=== PATIENT | male | born 1955 | race Caucasian/White ===

== ENCOUNTER 2016-07-02 01:06 | Inpatient (IN) | payer MEDICAID, OTHER ==
[2016-07-02] MEDS ORDERED: PROPOFOL/EMULSION 500 MG/50 ML BOTTLE IV ONE (01:11)
[2016-07-02] MEDS ORDERED: NS 1,000 ML IV ONE (01:11)
[2016-07-02] MEDS ORDERED: PROPOFOL 200 MG/20 ML VIAL IVP ONE (01:12)
[2016-07-02] MEDS ORDERED: PROPOFOL/EMULSION 50 ML IV ONE (01:13)
[2016-07-02] MEDS ORDERED: VANCOMYCIN HCL/NORMAL SALINE 250 ML IV ONE (01:20)
[2016-07-02] MEDS ORDERED: PIPERACILLIN/TAZO 4.5 GM/DEX 100 ML IV ONE (01:20)
--- NOTE | 2016-07-02 01:20 | EDPHY ---
[id number] unknown age, presents emergency room by EMS from [facility], for respiratory failure. Per EMS they were called for respiratory distress/ failure. According to [facility] staff he was having shortness of breath yesterday and had a fever he was started on some type of antibiotic for a chest wall wound. They called 911 this evening as he had severely decline was unresponsive in respiratory distress. They brought him to the emergency room urgently. Upon arrival here in the emergency room he is unresponsive he is breathing 60 times per minute he is unable to participate in exam or answer any questions. The history is extremely limited as well as review of systems. Per EMS they do tell me that he is a dialysis patient lives at [facility] however no additional history is given at this time. Past Medical History: Unknown Past Surgical History: Unkown Social History: Lives in [facility] Family History: Unknown ROS REVIEW OF SYSTEMS: A comprehensive 10 point review of systems is otherwise negative aside from elements mentioned in the history of present illness. Exam Constitutional unresponsive Eyes normal conjunctivae and sclera, EOMI, PERRLA. HENT normal inspection, atraumatic, moist mucus membranes, no epistaxis, neck supple/ no meningismus, no raccoon eyes. Respiratory respiratory distress, upper airway secretions Cardiovascular chest wall: Bloody lesion anterior chest wall, 3cm x 3cm, rate normal, regular rhythm, no murmur, no edema, distal pulses normal. Gastrointestinal large abdomen Genitourinary no CVA tenderness. Musculoskeletal left arm AV fistula Skin pink, warm, & dry, no rash, lesion to anterior chest wall Neurologic unresponsive Psychiatric normal mood/affect. Heme/Lymph/Immune no lymphadenopathy. Differential Diagnosis:includes but is not limited to in a particular order, respiratory failure, pneumonia, sepsis, septic shock, bacteremia, electrolyte abnormality, volume overload, ACS Medical Decision Making: Procedure: ETT Intubation Upon arrival here in the emergency room the patient is unresponsive with respiratory distress unable to participate in exam. Gurgling secretions he was emergently intubated by myself without RSI medications as he was unresponsive. A 7.5 endotracheal tube was passed under direct visualization of the cords with a MAC 4 blade. No complications. 0119: At this time this patient is moved to ER room 2 for resuscitation will have IVs established, he received fluid bolus as his blood pressure was low in the 90s. Patient had blood cultures, lactic acid, he will have a chest x-ray blood work. Most likely be started on broad-spectrum antibiotics. Re-evaluation: 0123:I was able to find medical records on this patient. According to medical record: He has the following medical problems mental delay secondary to hypoxia as a child, end-stage renal disease secondary to diabetic nephropathy type 2 diabetes , hypoxia wearing 2 L nasal cannula, BPH, hyperlipidemia, hypertension, CVA endocarditis asthma, depression, mitral valve and aortic valve repair acute respiratory failure in the past, CABG, coronary artery disease, 2nd degree AV block, ESBL EKG interpretation by me on record in [facility] system. Impression time of EKG 1:25 a.m., this is sinus tachycardia rate of 100, this shows a right bundle- branch block present left posterior fascicular block present. This is similar to in morphology of previous EKG dated 10/04/2015. I do not appreciate acute ischemic change at this time. ED x-ray chest one view: Shows cardiomegaly present. There is pulmonary edema bilateral lung jones, endotracheal tube is in appropriate position. No pneumothorax visualize. Image interpreted by myself. Critical Care: Total Critical Care Time Spent Managing this Patient: 60 Minutes. This time was spent Exclusively with this patient. This Care was exclusive of procedures. The Organ System/life at risk was respiratory, sepsis This Patient was in Critical Condition because respiratory failure 0225: re-evaluation at this time this patient is sedated, intubated, he is hemodynamically stable. Currently his blood pressure is 100/50, pulse ox 95% intubated, respiratory rate 16, heart rate 76. He is on his 3rd L fluid his 2nd lactic acid is pending. He has received broad-spectrum antibiotics vancomycin and cefepime. He does have a fever of 39 degrees here. A elevated white blood cell count most likely he is septic with severe sepsis. Unknown source at this time. His x-ray has been reviewed shows pulmonary edema. He does have a positive troponin however unlikely to be ischemia this is most likely sepsis. I have admitted this patient to the hospitalist service and spoke with Dr. Plata who accepts admission to the ICU at this time this patient is hemodynamically stable for the ICU. We will continue broad-spectrum antibiotics as unclear source of infection. Blood cultures have been pulled I have ordered a sputum culture. 0309: this patient remains hypotensive. Patient has been given 3 L he is on his 4th L. Procedure: Central Line Placement. I placed a central line left IJ under ultrasound guidance. There were no complications he tolerated this well. Chest x-ray to confirm. ED x-ray chest one view: This is for line placement: left IJ central line appears in appropriate position. No pneumothorax identified. Image interpreted by myself. Source: EMS Constitutional: Initial Vital Signs Temperature (C) 37.7 C 07/02/16 01:06 Heart Rate 116 H 07/02/16 01:06 Respiratory Rate 32 H 07/02/16 01:06 Blood Pressure 97/51 L 07/02/16 01:06 O2 Sat (%) 78 L 07/02/16 01:06 O2 Delivery Mode Ventilator O2 (L/minute) 15 Allergies/Adverse Reactions: Penicillins Allergy (Verified 07/02/16 02:12) Home Medications: Medication Instructions Recorded Aspirin EC [Aspirin EC 81 mg (*)] 81 mg PO DAILY 07/02/16 Escitalopram Oxalate [Lexapro] 10 mg PO DAILY 07/02/16 Famotidine [Pepcid 20 MG (*)] 20 mg PO HS 07/02/16 Fluticasone Nasal [Flonase Nasal 1 sprays NASAL DAILY 07/02/16 [place] (RX)] Insulin Aspart 0 - 8 units SQ ACHS 07/02/16 Insulin Detemir [Levemir Flextouch] 8 unit SQ DAILY AT 8PM 07/02/16 Multivitamin with Minerals 1 each PO DAILY 07/02/16 [Multiple Vitamin] Sulfamethox/Tmp 800/160 mg 1 tab PO DAILY 07/02/16 [Bactrim Ds] Medical Decision Making - Data Points Laboratory Results: Laboratory Results 07/02/16 01:15 07/02/16 01:15 Microbiology Results: MICROBIOLOGY 07/02/16 02:05 Urine,Catheterized Urine Culture - Preliminary Yeast Species 07/02/16 01:38 Blood Blood Culture - Preliminary 07/02/16 01:30 Blood Blood Culture - Preliminary Medications Given: Discontinued Medications Enoxaparin Sodium (Lovenox) 30 mg SC DAILY BARRIE Stop: 12/29/16 08:59 Last Admin: 07/02/16 09:41 Dose: Not Given Fentanyl (Sublimaze) 50 mcg IVP EDNOW ONE Stop: 07/02/16 01:25 Last Admin: 07/02/16 01:26 Dose: 50 mcg Fentanyl (Sublimaze) 50 mcg IVP EDNOW ONE Stop: 07/02/16 02:26 Last Admin: 07/02/16 02:27 Dose: 50 mcg Fentanyl (Sublimaze) 50 mcg IVP ONCE ONE Stop: 07/02/16 02:50 Last Admin: 07/02/16 03:01 Dose: 50 mcg Fentanyl (Sublimaze) 50 mcg IVP ONCE ONE Stop: 07/02/16 02:52 Last Admin: 07/02/16 03:00 Dose: 50 mcg Fentanyl (Sublimaze) 100 mcg IVP ONCE ONE Stop: 07/02/16 03:21 Last Admin: 07/02/16 03:21 Dose: 100 mcg Sodium Chloride (Ns) 1,000 mls @ 0 mls/hr IV ONCE ONE PRN Reason: As Directed Stop: 07/02/16 01:12 Last Admin: 07/02/16 01:06 Dose: 1,000 mls Propofol (Diprivan 10 Mg/Ml (Premix)) 50 mls @ 0 mls/hr IV EDNOW ONE; As Directed PRN Reason: Protocol Stop: 07/02/16 01:14 Last Admin: 07/02/16 01:45 Dose: Not Given Vancomycin/Sodium Chloride (Vancomycin 1 Gm (Premix)) 250 mls @ 250 mls/hr IV EDNOW ONE PRN Reason: Protocol Stop: 07/02/16 02:19 Last Admin: 07/02/16 01:52 Dose: 250 mls Piperacillin/Tazobactam/Dextrose (Zosyn (Premix)) 100 mls @ 200 mls/hr IV EDNOW ONE PRN Reason: Protocol Stop: 07/02/16 01:49 Last Admin: 07/02/16 02:14 Dose: Not Given Cefepime HCl 2 gm/ Dextrose 100 mls @ 200 mls/hr IV EDNOW ONE PRN Reason: Protocol Stop: 07/02/16 02:40 Last Admin: 07/02/16 02:39 Dose: 100 mls Sodium Chloride (Ns) 2,000 mls @ 0 mls/hr IV ONCE ONE PRN Reason: Wide Open Stop: 07/02/16 02:28 Last Admin: 07/02/16 02:28 Dose: 2,000 mls Norepinephrine 4 mg/ Sodium (Chloride) 504 mls @ 0 mls/hr IV EDNOW ONE; Titrate PRN Reason: Protocol Stop: 07/02/16 03:21 Last Admin: 07/02/16 03:25 Dose: 504 mls Norepinephrine 4 mg/ Dextrose 504 mls @ 0 mls/hr IV CONT BARRIE; Titrate PRN Reason: Protocol Stop: 12/29/16 04:29 Last Admin: 07/02/16 09:15 Dose: 504 mls Sodium Chloride (Ns) 1,000 mls @ 100 mls/hr IV CONT BARRIE Stop: 12/29/16 04:14 Last Admin: 07/02/16 04:37 Dose: 1,000 mls Midazolam HCl (Versed) 1 mg IVP ONCE ONE Stop: 07/02/16 01:45 Last Admin: 07/02/16 01:26 Dose: 1 mg Midazolam HCl (Versed) 1 mg IVP ONCE ONE Stop: 07/02/16 02:26 Last Admin: 07/02/16 02:27 Dose: 1 mg Midazolam HCl (Versed) 1 mg IVP EDNOW ONE Stop: 07/02/16 03:01 Last Admin: 07/02/16 03:00 Dose: 1 mg Propofol (Diprivan) 60 mg IVP EDNOW ONE Stop: 07/02/16 01:13 Last Admin: 07/02/16 01:20 Dose: 10 mg Departure - Departure Disposition: [facility] Inpatient Acute Clinical Impression: Respiratory failure, Sepsis Condition: Critical
[2016-07-02 01:24] LABS: % IMMATURE GRANULYOCYTES 0.7 % (0.0-1.1); ABSOLUTE IMMATURE GRANULOCYTES 0.15 10^3/uL (0.00-0.10); ADD DIFF? NO; ADD MORPH? NO; ADD SCAN? NO; ATYPICAL LYMPHOCYTE FLAG 0 (0-99); FRAGMENT RBC FLAG 20 (0-99); HEMATOCRIT 33.8 % (40.0-51.0); HEMOGLOBIN 10.5 g/dL (13.7-17.5); LEFT SHIFT FLG 0 (0-99); LIPEMIA HEMOLYSIS FLAG 80 (0-99); MEAN CELL HEMOGLOBIN 27.2 pg (27.9-34.1); MEAN CELL HEMOGLOBIN CONCENTR. 31.1 g/dL (32.4-36.7); MEAN CELL VOLUME 87.6 fL (81.5-99.8); MEAN PLATELET VOLUME 9.3 fL (8.7-11.7); PLATELET CLUMPS FLAG 20 (0-99); PLATELET COUNT 379 10^3/uL (150-400); RED BLOOD CELL COUNT 3.86 10^6/uL (4.40-6.38)
[2016-07-02] MEDS ORDERED: fentaNYL 100 MCG/2 ML INJ IVP ONE ×5 (01:24→03:20)
--- NOTE | 2016-07-02 01:28 | CPEKG ---
Heart Rate: 100 RR Interval: 600 P-R Interval: 192 QRSD Interval: 154 QT Interval: 360 QTC Interval: 465 P [place]: -67 QRS [place]: 139 T Wave [place]: -23 EKG Severity - ABNORMAL ECG - EKG Impression: Sinus tachycardia EKG Impression: RBBB AND LPFB Electronically Signed By: Ramesh Calderón 04-Jul-2016 10:54:29
[2016-07-02] MEDS ORDERED: MIDAZOLAM HCL 50 MG in D5W 50 ML IV SCH (01:30)
[2016-07-02 01:35] LABS: ALANINE AMINOTRANSFERASE 38 IU/L (21-72); ALKALINE PHOSPHATASE 168 IU/L (38-126); ANION GAP 16 mEq/L (8-16); ASPARTATE AMINOTRANSFERASE 60 IU/L (17-59); BILIRUBIN,TOTAL 0.8 mg/dL (0.1-1.4); BILIRUBIN-CONJUGATED 0.8 mg/dL (0.0-0.5); CALCIUM 9.4 mg/dL (8.5-10.4); CARBON DIOXIDE 29 mEq/l (22-31); CHLORIDE 96 mEq/L (97-110); CREATININE 3.4 mg/dL (0.7-1.3); GLOMERULAR FILTRATION RATE 19; GLUCOSE 213 mg/dL (70-100); POTASSIUM 4.5 mEq/L (3.5-5.2); SODIUM 141 mEq/L (134-144); TOTAL PROTEIN 6.6 g/dL (6.3-8.2)
[2016-07-02 01:36] LABS: INR 1.54 (0.83-1.16); PROTIME(PATIENT) 18.5 SEC (12.0-15.0)
[2016-07-02 01:37] LABS: APTT 32.3 SEC (23.0-38.0)
[2016-07-02] MEDS ORDERED: MIDAZOLAM 2 MG/2 ML VIAL IVP ONE ×3 (01:44→03:00)
[2016-07-02 01:57] LABS: BASE EXCESS 0.7 mEq/L (-2.5-2.5); BICARBONATE 25 mEq/L (22-26); MEASURED OXYGEN SATURATION 100 % (92-95); PCO2 41 mmHg (34-38); PO2 206 mmHg (65-75); TCO2 26 mEq/L (23-27)
[2016-07-02 01:58] LABS: O2 CONCENTRATIION 80 % (0-100); P/F RATIO 258 RATIO; PATIENT RATE 22; PIP 27.4; PRESSURE SUPPORT 7; SIMV YES
[2016-07-02 01:59] LABS: END TIDAL CO2 34
[2016-07-02 02:05] LABS: CK-MB INTERPRETATION NEGATIVE (NEGATIVE)
[2016-07-02] MEDS ORDERED: CEFEPIME HCL 2 GM in D5W 100 ML IV ONE (02:11)
[2016-07-02] MEDS ORDERED: NS 2,000 ML IV ONE (02:27)
[2016-07-02] MEDS ORDERED: NOREPINEPHRINE BITARTRATE 4 MG in D5W 500 ML IV SCH ×2 (03:00→04:30)
[2016-07-02] MEDS ORDERED: NOREPINEPHRINE BITARTRATE 4 MG in NS 500 ML IV ONE (03:20)
[2016-07-02] MEDS ORDERED: fentaNYL 100 MCG/2 ML INJ IVP PRN (04:03)
[2016-07-02] MEDS ORDERED: NS 1,000 ML IV SCH (04:15)
[2016-07-02] MEDS: ACETAMINOPHEN 650 MG SUPP PR PRN ×2 (04:20→09:11)
[2016-07-02] MEDS: fentaNYL/NACL 100 ML IV SCH (04:29)
[2016-07-02] MEDS ORDERED: VASOPRESSIN/DEXTROSE 250 ML IV SCH (04:30)
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
[2016-07-02] MEDS ORDERED: CEFEPIME HCL 2 GM in D5W 100 ML IV SCH (06:00)
[2016-07-02 06:12] LABS: BICARBONATE 24 mEq/L (22-26); MEASURED OXYGEN SATURATION 87 % (92-95); PCO2 42 mmHg (34-38); PO2 66 mmHg (65-75); TCO2 25 mEq/L (23-27)
[2016-07-02 06:14] LABS: SIMV YES
[2016-07-02 06:15] LABS: END TIDAL CO2 40; O2 CONCENTRATIION 40 % (0-100); P/F RATIO 165 RATIO; PATIENT RATE 20; PRESSURE SUPPORT 7
[2016-07-02 06:29] LABS: % IMMATURE GRANULYOCYTES 0.5 % (0.0-1.1); ADD DIFF? NO; ADD MORPH? NO; ADD SCAN? NO; ATYPICAL LYMPHOCYTE FLAG 0 (0-99); FRAGMENT RBC FLAG 20 (0-99); HEMATOCRIT 28.4 % (40.0-51.0); LEFT SHIFT FLG 0 (0-99); LIPEMIA HEMOLYSIS FLAG 80 (0-99); MEAN CELL HEMOGLOBIN 26.6 pg (27.9-34.1); MEAN CELL HEMOGLOBIN CONCENTR. 31.7 g/dL (32.4-36.7); MEAN PLATELET VOLUME 9.3 fL (8.7-11.7); PLATELET CLUMPS FLAG 0 (0-99); PLATELET COUNT 287 10^3/uL (150-400); RED BLOOD CELL COUNT 3.38 10^6/uL (4.40-6.38)
[2016-07-02 06:41] LABS: ALANINE AMINOTRANSFERASE 34 IU/L (21-72); ALBUMIN 2.7 g/dL (3.5-5.0); ALKALINE PHOSPHATASE 125 IU/L (38-126); ANION GAP 14 mEq/L (8-16); ASPARTATE AMINOTRANSFERASE 50 IU/L (17-59); BILIRUBIN,TOTAL 0.8 mg/dL (0.1-1.4); CALCIUM 8.1 mg/dL (8.5-10.4); CARBON DIOXIDE 24 mEq/l (22-31); CHLORIDE 104 mEq/L (97-110); CREATININE 3.2 mg/dL (0.7-1.3); GLOMERULAR FILTRATION RATE 20; GLUCOSE 144 mg/dL (70-100); MAGNESIUM 1.5 mg/dL (1.6-2.3); POTASSIUM 3.7 mEq/L (3.5-5.2); SODIUM 142 mEq/L (134-144); TOTAL PROTEIN 5.2 g/dL (6.3-8.2)
[2016-07-02] MEDS ORDERED: ALBUTEROL 60 PUFFS/8 GM MDI IH PRN (06:53)
[2016-07-02] MEDS ORDERED: MIDAZOLAM 2 MG/2 ML VIAL ONE (07:40)
[2016-07-02] MEDS ORDERED: fentaNYL 100 MCG/2 ML INJ ONE (07:40)
[2016-07-02] MEDS ORDERED: D50W 25 GM/50 ML SYR IVP PRN (07:41)
--- NOTE | 2016-07-02 07:57 | DX ---
1. Portable Chest 1:20 a.m. History: Intubation, unresponsive patient Comparison: None Findings: ET tube present with tip in the trachea just above the chin. The heart is large with an a ortic valve replacement along with CABG clips and median sternotomy wire overlying it. The pulmonary vascularity is plethoric. Early diffuse alveolar densities suggest pulmonary edema. There is subtle b lunting of the left costophrenic gutter. The right costophrenic gutter remain sharp. EKG leads overli e the chest. Impression: Acute CHF with pulmonary edema. Good position of the ET tube. 2. Portable chest, 316 a.m. History: Line placement Comparison: 120 a.m. Findings: ET tube present with tip above the chin. Left jugular venous catheter present with tip ov erlying the superior vena cava. NG tube present with tip in the stomach. Inspiratory phase is slightl y less. There is new left lower lobe consolidation. Bilateral alveolar type density is increasing con sistent with pulmonary edema. Impression: 1. CHF. 2. Left lower lobe consolidation may represent underlying pneumonia. 3. Good tube positions.
--- NOTE | 2016-07-02 08:31 | HOSPPROG ---
Hospitalist Progress Note Assessment/Plan: #Septic shock: multifactorial -possible cardiac surgical site infection. Seen by Dr Romo 06/29 and started on Bactrim, plan was for elective drainage of wound early next week. Dr. Romo consulted. 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 Contact Dr. Khan -now Influenza A positive, cont Vanc, added Invanz with h/o ESBL -Levophed #Acute on chronic hypoxic resp failure: due to flu, volume overload #h/o ESBL Klebsiella PNA (September 2015) -add Invanz -ID to evaluate #ESRD: appreciate renal consult. Plan for CRRT. 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 Concern for infection vs abscess at surgical site. Cont Vanc. Blood cultures pending. No vegetations on TTE #h/o CVA: residual left sided deficits. Doing rehab per sister #Acute encephalopathy: due to critical illness, sedation. CTH with no acute ischemia. #Acutely decompensated systolic HF (EF now 45-50%). Volume overloaded. Plan for CRRT today #NSTEMI: trop 0.5-->1.6--> 2 -likely to acute illness. Reviewed TTE with cardiology and no focal wall abnormality to suggest ACS. #Atrial fibrillation: due to acute illness. Consider heparin tomorrow if does not convert #Lactic acidosis: resolved with IVFs #Goals: sister, May, is MDPOA. MOST form May 2016 is full code. She wants to continue all treatment at this time to give him a chance Subjective: per sister. Was doing fine in PT yesterday. Has been more "foggy this week" and had dry cough starting yesterday Objective: Vital Signs Temp Pulse Resp BP Pulse Ox 40.3 C H 84 20 119/43 L 94 07/02/16 06:00 07/02/16 06:00 07/02/16 06:00 07/02/16 06:00 07/02/16 06:00 Laboratory Results 07/02/16 06:10 07/02/16 06:10 07/01/16 07/02/16 07/03/16 05:59 05:59 05:59 Intake Total 6500 Output Total 0 Balance 6500 PT 18.5 SEC (12.0-15.0) H 02/04/17 01:15 INR 1.54 (0.83-1.16) H 07/02/16 01:15 ICD10 Worksheet Patient Problems: Problems Problem Status Diagnosed Respiratory failure Acute Sepsis Acute
[2016-07-02] MEDS: IPRATROPIUM/ALBUTEROL 4GM MDI IH SCH ×2 (08:47→11:55)
[2016-07-02 08:51] LABS: COLOR YELLOW; LEUKOCYTE ESTERASE,URINE 2+ (NEGATIVE); NITRITE,URINE NEGATIVE (NEGATIVE)
[2016-07-02] MEDS ORDERED: FAMOTIDINE 20 MG/NACL 50 ML IV SCH (09:00)
[2016-07-02] MEDS ORDERED: ENOXAPARIN 40 MG/0.4 ML SYR SC SCH (09:00)
[2016-07-02] MEDS ORDERED: ENOXAPARIN 30 MG/0.3 ML SYR SC SCH (09:00)
[2016-07-02] MEDS: PANTOPRAZOLE SODIUM 40 MG in NS 100 ML IV SCH (09:10)
[2016-07-02] MEDS: ERTAPENEM 0.5 GM in NS 50 ML IV SCH (09:10)
[2016-07-02] MEDS: methylPREDNISolone SOD SUCC 125 MG/2 ML VIAL IVP SCH ×3 (09:11→18:11)
[2016-07-02 09:12] LABS: RBC,URINE 50-182 /hpf (0-3); WBC,URINE 50-182 /hpf (0-3)
[2016-07-02] MEDS: INSULIN LISPRO 100 UNIT/ML SC SCH ×3 (09:41→18:23)
[2016-07-02] MEDS: HEPARIN 5,000 UNIT/0.5 ML SYR SC SCH ×2 (10:15→18:11)
--- NOTE | 2016-07-02 11:51 | ECHO ---
[id number] + + [address] : : [place] [address] : : [phone] + + Adult Echocardiographic Report + -------+ :Name: TRACY SOUZA 1821Study Date: 07/02/2016 09:21 AM : : Hospital Admission Number: [id number] Locati on: 247: :: 1955 Gender: Male : :Age: 61 yrs Race: WH : :Reason For Study: Shock : :History: MVR 25 magna/AV repair : + -------+ MMode/2D Measurements & Calculations IVSd: 1.1 cm LVIDd: 4.9 cm FS: 24.7 % Ao root diam: 3.2 cm LVPWd: 0.88 cm LVIDs: 3.7 cm EDV(Teich): 111.1 ml LA dimension: 4.4 cm ESV(Teich): 56.9 ml EF(Teich): 48.8 % Normal Measurement Values: + + :LVIDd (3.5-5.7cm) IVSd (0.6-1.1cm) LVPWd (0.6-1.1cm) Aortic Root (2.0-3.7cm)Left Atrium (1.5-4.0cm): :LV Vol(d) (76-115ml) LV Vol(s) (29-48ml) Ejec Fraction (50-65%)PV Michael (0.6- 1.2m/s) TV Michael (0.4-1.0m/s) : :MV E Michael (0.8-1.0m/s)MV A Michael (0.3-1.0m/s)LVOT Michael (0.7-1.2m/s) Asc Ao Michael ( 0.9-1.8m/s) : + + Doppler Measurements & Calculations MV dec time: MV V2 max: MV P1/2t max michael: Ao mean P.15 sec 272.3 cm/sec 254.0 cm/sec 8.1 mmHg MV max PG: MV P1/2t: 45.7 msec Ao V2 mean: 29.7 mmHg MVA(P1/2t): 4.8 cm2 130.7 cm/sec MV V2 mean: MV dec slope: Ao V2 VTI: 30.4 cm 136.7 cm/sec 1628 cm/sec2 MV mean P.9 mmHg MV V2 VTI: 78.5 cm TR max michael: 302.4 cm/sec TR max P.6 mmHg RAP systole: 10.0 mmHg RVSP(TR): 46.6 mmHg Left Ventricle The left ventricle is normal in size. There is normal left ventricular wall thickness. The left ventricular ejection fraction is calculated at 48.8 %. Septal motion is consistent with conduction abnormality. Flattened septum is consistent with RV volume overload. Right Ventricle A moderator band is seen in the right ventricle. The right ventricle is moderate to severely dilated. Atria The left atrial size is normal. The right atrium is moderate to severely dilated. The interatrial septum is intact with no evidence for an atrial septal defect. Mitral Valve There is a bioprosthetic mitral valve. MV max PG is 29mmHG. MV mean PG is 9mmHG. Tricuspid Valve Normal tricuspid valve. There is moderate to severe tricuspid regurgitation. There is Doppler evidence for mild pulmonary hypertension. Right ventricular systolic pressure is 47mmHg. Aortic Valve The aortic valve opens well. AV max PG is 16mmHG. AV mean PG is 8mmHG. Mild- Moderate Aortic Valve Calcification. There is no aortic insufficiency. Pulmonic Valve The pulmonic valve is not well visualized. Mild pulmonic valvular regurgitation. Great Vessels The aortic root is normal size. Pericardium/Pleural There is no pericardial effusion. Conclusion A complete two-dimensional transthoracic echocardiogram was performed (2D, M-mode, Doppler and color flow Doppler). (1) Left ventricular systolic ejection fraction was mildly decreased (45- 50%) - septal wall motion consistent with conduction abnormality - flattening of the septal wall consistent wtih volume overload (2) No left ventricular hypertrophy (3) Diastolic dysfunction was not appreciated (4) Moderate to severe rigth ventricular dilation with reduction in systolic function (5) Normal left atrial size and moderate to severe right atrial dilation (6) Bioprosthetic valve without appreciable regurgitation - max PG was 29 mm Hg with mean PG to 9 mm Hg (7) Trileaflet aortic valve with moderate sclerosis, no stenosis (mean gradient was 8 mm Hg), and no appreciable insufficiency (8) Moderate to severe tricuspid regurgitation - RVSP was estimated to be 45-50 mm HG (9) Poor visualization of the pulmonic valve with mild insufficiency (10) In comparison to prior echocardiogram from 10-07-15, there has been progression of the pathology to the mitral valve (from mean of 7 mm Hg and max PG of 18 mm Hg). Ejection fraction on prior echo was also normal. Final Reading Physician: Yolanda Stark signed on 07/02/2016 11:49 AM Ordering Physician: Karena Plata Performed By: Diann Barfield, PHIL
--- NOTE | 2016-07-02 11:57 | CT ---
Unenhanced CT Scan of the Brain Clinical History: 61-year-old male resident of [facility] who presents to the emergency department this morning in septic shock, and is unresponsive. Rule out acute intracranial hemorrhage. 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 Technique: Standard unenhanced axial CT images were acquired from the skull base to the skull vertex, reformatted at 5.00 and 1.50 mm increments, and reviewed in bone, brain, and subdural windows. The DFOV is 25.5 cm. Parasagittal and paracoronal reconstructed images were reviewed on the workstation. A dose reduction protocol was used. Comparison Study: None available. Findings: There is an old lacunar infarct at the level of the right jernigan radiata, as well as a cortical and subcortical right posteroparietal infarct. There is some underlying cortical atrophy. There is no midline shift or other evidence of mass effect. There is no acute or subacute abnormal intra- or extra- axial hemorrhage. There are some mild periventricular chronic microvascular ischemic gliosis. There is atherosclerotic calcification of the cavernous carotid arteries and of the vertebral arteries. There is no skull fracture. The craniocervical junction, sella turcica, calcified pineal gland, and the orbits are unremarkable. 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 There is some chronic mucosal thickening of the ethmoid, maxillary, and sphenoid sinuses. The mastoids are patent. There is some presumed cerumen in the external auditory canals. The patient is intubated. A left nasal oropharyngeal tube is present. Impression: 1. Mild underlying cerebral cortical atrophy with some chronic periventricular white matter gliosis, an old lacunar infarct at the right jernigan radiata, and an old right posteroparietal cortical-subcortical infarct. 2. Chronic paranasal sinus mucosal thickening. 3. There is no acute intracranial abnormality identified. If there is further clinical concern regarding the patient's symptoms, MR imaging could be considered, if otherwise not contraindicated. I provided a preliminary interpretation to Dr. Jacoby Stewart at 3:42 a.m. on Monday, July 02, 2016 regarding the above findings. My final interpretation is concordant with my initial impression. [id number] POS 99 MTDD
[2016-07-02] MEDS: OSELTAMIVIR 6 MG/ML UDSYR PO SCH (12:05)
--- NOTE | 2016-07-02 12:40 | CT ---
CT Chest Without Contrast, 1128 a.m. History: Septic shock, possible sternal suture abscess, high creatinine Technique: Noncontrast, single breath-hold, [address] through the chest without contrast. D ose reduction techniques were utilized. Images are transferred to the 3-D workstation were a 3-dimens ional model is obtained and photographed by myself. Comparison: Portable chest x-ray 316 a.m. Findings: There is a midline manubrium and sternotomy which has very irregular margins. The sternum i s poorly mineralized and severely eroded in multiple locations. There is soft tissue thickening and/o r edema both deep and superficial, circumferentially around the sternotomy. Anteriorly this soft tiss ue thickening/edema extends to the skin line. There is no soft tissue gas. There is an upper sternal, double looped metallic cerclage wire, that is intact. There are more subtle nonmetallic cerclage wir es that are associated with the left side of the sternum only. The clavicular manubrial joints remain normally aligned. The medial left clavicular head is chronically eroded. There is no soft tissue gas . There is noncalcified mediastinal adenopathy, likely reactive. The heart is enlarged. There is a mitral valve replacement. There is coronary artery disease. There a re anterior mediastinal surgical clips. There is no significant pericardial effusion. There is bilate ral lower lobe consolidation with air bronchograms, left greater than right. Is a small left pleural effusion. There are some tiny left basilar pleural calcifications. ET tube present with tip in the tr achea. NG tube present with tip in the stomach. A left central venous catheter is present with tip in the superior vena cava. There is ascites in the upper abdomen. There is left upper abdominal periton eal fat edema. There are splenic calcified granulomas. Impression: 1. Suspicious for sternal osteomyelitis with a dehisced sternotomy. Mediastinal adenopath y is likely reactive. If there is concern for localized abscess, ultrasound may be useful, since the patient cannot receive IV contrast. 2. Bibasilar consolidation with air bronchograms and small left pleural effusion. 3. Left upper abdominal peritoneal fat edema and ascites of uncertain etiology or clinical significan ce. General information for patients regarding this examination can be found at [email or web address]. If you have questions or comments about this report, please contact me at [phone] (hospital) or [phone] ([facility]).
--- NOTE | 2016-07-02 14:22 | SOAPPROG ---
SOAP Progress Note Assessment/Plan: Assessment: 1)ESRD- [facility] -given sepsis requiring pressors, will do CRRT (will need HD catheter as can't use AVF with CRRT- Dr. Romo to place) -will start with UF net 0 and gradually attempt volume removal as he tolerates hemodynamically 2)Acute Hypoxic Resp Failure -on vent FIO2 50% -Influenza A positive -TTE with worse LVEF 45% 3)sepsis on pressors -influenza A positive and concern for sternal wound infection -has h/o ESBLD pna last year -on broad spectrum antibiotics 4)sternal wound infection- Dr. Romo following -chest CT concerning for osteomyelitis 5)s/p mitral valve replacement and AV debridement in 10/11 -TTE here no vegetations -blood cx pending 6)NSTEMI -TTE this admit with acute worsening LVEF- 45% 7)anemia of CKD -will verify outpt Epo dosing from outpt HD unit records I discussed with hospitalist, sister, and SONG WRITER Sravanthi Avelar MD [facility] [phone] pager 07/02/16 14:53 Subjective: 61 M with h/o ESRD ([facility]), recent MV replacement/AV debridement in 10/11 with sternal wound infection admitted with sepsis, acute hypoxic resp failure, influenza A. He is intubated on FIO2 50 % and on pressors. His TTE this admit negative for vegetations but LVEF worse at 45%. Chest CT concerning for osteomyelitis. Troponin elevated. I spoke with sister Aditya who told me he was doing reasonably well earlier in week, was started on bactrim for wound infection. He has LUE AVF for access. Objective: Vital Signs Temp Pulse Resp BP Pulse Ox 37.4 C 85 20 141/44 H 100 07/02/16 13:00 07/02/16 13:00 07/02/16 13:00 07/02/16 12:00 07/02/16 13:00 Microbiology 07/02/16 07:05 - Final Sputum, Induced/Suctioned Laboratory Results 07/02/16 06:10 07/02/16 06:10 07/01/16 07/02/16 07/03/16 05:59 05:59 05:59 Intake Total 6500 Output Total 0 Balance 6500 PT 18.5 SEC (12.0-15.0) H 02/04/17 01:15 INR 1.54 (0.83-1.16) H 07/02/16 01:15 Physical Exam - Physical Exam General Appearance: other (intubated, sedated, on levophed) EENT: ET tube Neck: supple (IJ central line with some oozing at site) Respiratory: other (coarse bs bilat ant) Cardiac/Chest: regular rate, rhythm, other (sternal wound-open sore) Abdomen: normal bowel sounds, soft Extremities: other (no edema, LUE AVF +thrill/bruit but weak) Neuro/Psych: other (sedated) ICD10 Worksheet Patient Problems: Problems Problem Status Diagnosed Respiratory failure Acute Sepsis Acute
[2016-07-02] MEDS: CHLORHEXIDINE GLUCONATE 15 ML UDL PO SCH ×2 (14:28→19:56)
[2016-07-02] MEDS: NOREPINEPHRINE BITARTRATE 16 MG in NS 250 ML IV SCH (14:31)
--- NOTE | 2016-07-02 15:10 | US ---
Ultrasound and Venous Duplex Doppler Study of Both the Right and Left Lower Extremities History: Status post respiratory arrest and bilateral leg swelling, evaluate for possible DVT, suspec t sternal osteomyelitis Technique: High frequency transducer was used for imaging and Doppler study of the veins of the righ t and left lower extremities. Pulsed Doppler and color Doppler were utilized, along with various ma neuvers to assess flow in the veins. Findings: Right: The deep veins of the right lower extremity are normally compressible between the groin and th e lower knee. Calf veins are difficult to visualize due to edema. No venous thrombosis is identified. Left: The deep veins of the left lower extremity are normally compressible between the groin and lowe r knee. Calf veins are difficult to visualize due to edema. No venous thrombus is identified. Impression: 1. No evidence of deep vein thrombosis in the right or left lower extremity . 2. Please note that bilateral calf swelling interferes with calf vein analysis. 3. If there is concern for pulmonary embolic disease, then consider nuclear medicine VQ scan since th e patient cannot receive iodinated contrast material due to a high creatinine.
--- NOTE | 2016-07-02 15:20 | GCON ---
[f rep st] CONSULTATION PULMONARY/CRITICAL CARE CONSULTATION DATE OF CONSULTATION: 07/02/2016 REFERRING PHYSICIAN: Marlys Mata MD REASON FOR CONSULTATION: Evaluation and management of respiratory failure with sepsis. HISTORY OF PRESENT ILLNESS: The patient is a 61-year-old gentleman with a history of developmental delay, as well as end-stage renal disease, and a CVA with residual left hemiparesis, who has apparently had increased shortness of breath for about the past 2 days. He was started on antibiotic for a chest wall /sternal wound infection. When he was brought to the Emergency Department, he was unresponsive and breathing 60 times a minute. He was intubated. He has been sedated and unresponsive since admission. PAST MEDICAL HISTORY: 1. 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 Khan. The patient also had an aortic valve exploration. 2. Coronary artery disease status post coronary artery bypass in September of 2015. At the time of his surgery in September, he had a stroke and tracheostomy/PEG tube, as well as a Klebsiella pneumonia at that time. 3. History of end-stage renal disease on hemodialysis. 4. Developmental delay. 5. Peritonitis due to extravasation of tube feeds in September 2015, status post exploration. ADMISSION MEDICATIONS: Include fluticasone nasal spray, Lexapro, Levemir, famotidine, Bactrim, aspirin, and insulin. ALLERGIES: Penicillins. SOCIAL HISTORY: The patient lives at [facility]. Smoking and alcohol status are unknown. FAMILY HISTORY: Unremarkable. REVIEW OF SYSTEMS: Unobtainable. PHYSICAL EXAMINATION: GENERAL: The patient is intubated and sedated. VITAL SIGNS: His blood pressure is 141/44 with a heart rate of 80, his temperature is 38.4, with a T-max of 40.3, his CVP is 16. HEENT: Normocephalic and atraumatic. No icterus. NECK: No adenopathy. Trachea is midline. CHEST: He has some basal rales. He has a 1 cm area of skin breakdown along his sternotomy site with drainage of serosanguineous fluid. CARDIAC: Irregularly irregular without murmur. ABDOMEN: Soft, nontender. Bowel sounds are present. EXTREMITIES: No clubbing, cyanosis, or edema. LABORATORY: White blood count is 19.9 with a hemoglobin of 9.0 and a platelet count of 287. Chemistry group shows a BUN of 28 with a creatinine of 3.2, glucose is 144, potassium is 3.7. Troponin is 2.1, up from 0.6 [place] [address]. INR is 1.5. Arterial blood gas shows a pH of 7.40 with a pO2 of 66, a CO2 of 42, and a bicarbonate of 25, on IMV at the rate of 20 with a tidal volume of 550 and 40% oxygen, with a PEEP of 5. Urinalysis shows greater than 50 red blood cells and white blood cells. Arterial lactate is 2.2. Influenza A DFA is positive A chest x-ray shows left lower lobe consolidation and congestive heart failure. An echocardiogram demonstrates a left ventricular ejection fraction is 45-50%, down from previous echo. His right ventricular systolic function is reduced, and his estimated right ventricular systolic pressure is estimated at 45-50 mmHg. There is no appreciable regurgitation in his bioprosthetic mitral valve. A CT scan of the chest shows possible sternal osteomyelitis at his sternotomy and some mediastinal adenopathy. Patient has bilateral consolidation, more prominent on the left. ASSESSMENT: 1. Probable sepsis. The patient presented with altered mental status, tachypnea, elevated white blood count, and a fever. He was empirically on Bactrim prior to admission for a possible sternal wound infection. He was started on cefepime, and is now on vancomycin and ertapenem. Initial blood cultures are negative, but the patient was already on Bactrim at that time those were taken, so they may not be very helpful in excluding active bacteremia. His symptoms could all be due to influenza A. 2. Hypotension initially seen in the emergency department has improved with hydration. Source could include pneumonia for the patient's sternal wound infection. 3. End-stage renal disease. The patient will need ongoing dialysis. He may do better with continuous renal replacement therapy than intermittent dialysis given his current illness. 4. Atrial fibrillation. This has developed since the patient was admitted to the hospital and is likely related to fluid shifts and the patient's acute illness. His blood pressure is stable. 5. Elevated troponin. This is likely related to demand rather than acute ischemia. The patient has had prior coronary artery bypass grafting earlier this year, so acute coronary artery occlusion would be unlikely. 6. Systolic congestive heart failure. The patient's ejection fraction is reduced a bit and he has signs of volume overload likely related to sepsis and fluid resuscitation. 7. History of cerebrovascular accident. 8. Acute encephalopathy. This is likely due to the patient's acute illness. 9. Diabetes. The patient currently has hyperglycemia here in the ICU. 10. Influenza A RECOMMENDATIONS: 1. Continue sepsis protocol. The patient has also been started on oseltamivir and respiratory precautions. 2. ID and Surgery have been consulted. It may be beneficial to have Dr. Khan consulted as well. 3. Follow atrial fibrillation. Start amiodarone if patient becomes tachycardic , and consider cardioversion if he decompensates. If he is not back in normal sinus rhythm by tomorrow, we will probably start full-dose anticoagulation. 4. Monitor blood sugars and treat with insulin for hyperglycemia. CODE STATUS: Attempted to address code status with the MD POA. Apparently the had patient had a MOST form stating he was DNR/DNI. His MD POA has not been reachable so far. We will want to address this so we can determine the appropriate level of care. TIME SPENT: 45 minutes of critical care time. /[id number]/MODL MTDD
[2016-07-02] MEDS ORDERED: REPL FLUID TYPE D RXY 1 EA, SODIUM CITRATE 4% 375 ML, SODIUM Cl 3% 519 ML in WATER FOR ... DIAL SCH (16:00)
[2016-07-02] MEDS ORDERED: SODIUM PHOS 20 MM in D5W 250 ML IV PRN (16:00)
[2016-07-02] MEDS ORDERED: PRE-DILUTION FILTER SET 100 ****SEND #2 INITIALLY MISC PRN (16:00)
[2016-07-02] MEDS ORDERED: LIDOCAINE 1% 30 ML SDV ONE (16:33)
--- NOTE | 2016-07-02 16:39 | HOSPPROG ---
Hospitalist Progress Note Assessment/Plan: #Septic shock: multifactorial: suspect acutely due to influenza. Seen by Dr Romo 06/29 and started on Bactrim for sternal incision infection. Plan was for elective drainage of wound early next week. Dr. Romo aware. 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 Contact Dr. Khan -cont Vanc, added Invanz with h/o ESBL -Levophed #Acute on chronic hypoxic resp failure: due to flu, volume overload #h/o ESBL Klebsiella PNA (September 2015) -add Invanz -ID to evaluate #ESRD: appreciate renal consult. Plan for CRRT. 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 Concern for infection vs abscess at surgical site. Cont Vanc. Blood cultures pending. No vegetations on TTE #h/o CVA: residual left sided deficits. Doing rehab per sister #Acute encephalopathy: due to critical illness, sedation. CTH with no acute ischemia. #Acutely decompensated systolic HF (EF now 45-50%). Volume overloaded. Plan for CRRT today. Tunneled line placed by Dr. Romo #NSTEMI: trop 0.5-->1.6--> 2 -likely to acute illness. Reviewed TTE with cardiology and no focal wall abnormality to suggest ACS. #Atrial fibrillation: due to acute illness. Consider heparin tomorrow if does not convert #Lactic acidosis: resolved with IVFs #Goals: , Aditya, is MDPOA. ([phone]) MOST May 2016: Full code. She wants to continue all treatment at this time to give him a chance Critical care time: 90min. 30min bedside with patient and reviewing records. 60 min coordinating care with ID, renal, surgery and Dental Office Manager and goals discussion with sister Subjective: per sister, cough over past couple days, but participated in PT yesterday Objective: Vital Signs Temp Pulse Resp BP Pulse Ox 36.6 C 77 20 125/62 H 100 07/02/16 15:00 07/02/16 15:00 07/02/16 15:00 07/02/16 15:00 07/02/16 15:00 Microbiology 07/02/16 07:05 - Final Sputum, Induced/Suctioned Laboratory Results 07/02/16 06:10 07/02/16 06:10 07/01/16 07/02/16 07/03/16 05:59 05:59 05:59 Intake Total 6500 Output Total 0 Balance 6500 PT 18.5 SEC (12.0-15.0) H 07/02/16 01:15 INR 1.54 (0.83-1.16) H 07/02/16 01:15 - Physical Exam Eyes: PERRL Ears, Nose, Mouth, Throat: dry mucous membranes, other (ET tube in place) Cardiovascular: irregularly irregular Respiratory: rhonchi, other (coarse breath sounds) Gastrointestinal: normoactive bowel sounds Genitourinary: no bladder fullness Skin: other (substernal incision with erythema, pustules) Neurologic: other (sedated) Psychiatric: other (sedated) ICD10 Worksheet Patient Problems: Problems Problem Status Diagnosed Respiratory failure Acute Sepsis Acute
--- NOTE | 2016-07-02 16:46 | PCMIDPN ---
Assessment/Plan: Assessment: Influenza A and acute respiratory failure-patient presented with acute decline from a long term facility. Reportedly a couple of days of respiratory symptoms and cough. Patient was quite febrile upon presentation. Influenza a swab was positive. Patient has significant comorbidities. He is high risk for serious negative outcome from influenza. Continue awful temp of ear and his other underlying antibiotics. He has a history of a very resistant Klebsiella. Plan: 1. Continue all temp of ear renally adjusted. 2. Continue ertapenem. 3. Follow cultures and clinical course. 07/02/16 16:42 Subjective: Patient is intubated and sedated. Currently undergoing procedure of dialysis catheter placement. Consistently febrile overnight and this morning. Objective: Ertapenem # 1 oseltamivir # 1 Vancomycin # 1 Vital Signs Temp Pulse Resp BP Pulse Ox 36.6 C 77 20 125/62 H 100 07/02/16 15:00 07/02/16 15:00 07/02/16 15:00 07/02/16 15:00 07/02/16 15:00 Microbiology 07/02/16 07:05 - Final Sputum, Induced/Suctioned Laboratory Results 07/02/16 06:10 07/02/16 06:10 07/01/16 07/02/16 07/03/16 05:59 05:59 05:59 Intake Total 6500 Output Total 0 Balance 6500 - Physical Exam General Appearance: WD/WN, other (Chronically ill-appearing intubated and sedated.) Cardiac/Chest: regular rate, rhythm, No tachycardia Skin: normal color, warm/dry, No rash ICD10 Worksheet Patient Problems: Problems Problem Status Diagnosed Respiratory failure Acute Sepsis Acute
--- NOTE | 2016-07-02 17:00 | SOAPPROG ---
SOAP Progress Note Assessment/Plan: Assessment: 61-year-old male well known to me admitted with the sepsis possibly secondary to influenza. He also has a sternal wound infections with multiple pustules along the tract of his median sternotomy scar . At present time he is in renal failure from his sepsis and requiring multiple pressors and in [place] temporary dialysis catheter. Risk an option fully discussed with his family who wished to proceed Plan: a groin temporary dialysis catheter will be placed 07/02/16 16:57 Objective: Vital Signs Temp Pulse Resp BP Pulse Ox 36.6 C 77 20 125/62 H 100 07/02/16 15:00 07/02/16 15:00 07/02/16 15:00 07/02/16 15:00 07/02/16 15:00 Microbiology 07/02/16 07:05 - Final Sputum, Induced/Suctioned Laboratory Results 07/02/16 06:10 07/02/16 06:10 07/01/16 07/02/16 07/03/16 05:59 05:59 05:59 Intake Total 6500 Output Total 0 Balance 6500 PT 18.5 SEC (12.0-15.0) H 07/02/16 01:15 INR 1.54 (0.83-1.16) H 07/02/16 01:15 ICD10 Worksheet Patient Problems: Problems Problem Status Diagnosed Respiratory failure Acute Sepsis Acute
--- NOTE | 2016-07-02 17:01 | POSTOPPROG ---
Post Op Note Date of Operation: 07/02/16 Surgeon: Kenton Romo Anesthesia: Local (Specify) Pre-op Diagnosis: acute renal failure Post-op Diagnosis: same Indication: need for dialysis Procedure: right groin femoral temporary dialysis catheter placement Findings: good flow Inf/Abcess present in the surg proc area at time of surgery?: No Depth: Deep Incisional (Fascial) EBL: Minimal Complications: 0
[2016-07-02] MEDS: B22GK4/0 PRISMASATE 5,000 ML DIAL SCH ×2 (19:00→23:07)
[2016-07-02] MEDS: REPL FLUID TYPE D CAPS 1 EA in WATER FOR INJECTION,STERILE 4,000 ML DIAL SCH ×2 (19:00→22:17)
[2016-07-02] MEDS: ACCESSORY DRAIN 1 EA BAG***SEND #2 INITIALLY MISC PRN ×2 (19:51→19:53)
[2016-07-02] MEDS: CALCIUM CHLORIDE 5.7 GM in NS 1,000 ML IV SCH (19:52)
[2016-07-02] MEDS: NS 1,000 ML MISC SCH ×3 (19:52→23:07)
[2016-07-02 19:53] LABS: BASE EXCESS -0.8 mEq/L (-2.5-2.5); BICARBONATE 22 mEq/L (22-26); IONIZED CALCIUM 1.01 MMOL/L (1.12-1.30); MEASURED OXYGEN SATURATION 100 % (92-95); PCO2 26 mmHg (34-38); PO2 172 mmHg (65-75); TCO2 23 mEq/L (23-27)
[2016-07-02 19:55] LABS: O2 CONCENTRATIION 50 % (0-100); P/F RATIO 344 RATIO; PATIENT RATE 20; PIP 28.1; PRESSURE SUPPORT 7; SIMV YES
[2016-07-02] MEDS: PROPOFOL/EMULSION 100 ML IV SCH (19:56)
[2016-07-02] MEDS: LORazepam 2 MG/ML INJ IVP PRN (19:56)
[2016-07-02 19:58] LABS: HEMATOCRIT 27.7 % (40.0-51.0); HEMOGLOBIN 9.3 g/dL (13.7-17.5); MEAN CELL HEMOGLOBIN 27.6 pg (27.9-34.1); MEAN CELL HEMOGLOBIN CONCENTR. 33.6 g/dL (32.4-36.7); MEAN CELL VOLUME 82.2 fL (81.5-99.8); RED BLOOD CELL COUNT 3.37 10^6/uL (4.40-6.38); RED CELL DISTRIBUTION WIDTH 16.8 % (11.5-15.2)
[2016-07-02 20:03] LABS: INR 2.67 (0.83-1.16); PROTIME(PATIENT) 28.7 SEC (12.0-15.0)
[2016-07-02 20:18] LABS: APTT 149.9 SEC (23.0-38.0)
[2016-07-02 20:27] LABS: ALBUMIN 3.1 g/dL (3.5-5.0); ANION GAP 14 mEq/L (8-16); CALCIUM 8.4 mg/dL (8.5-10.4); CARBON DIOXIDE 23 mEq/l (22-31); CHLORIDE 100 mEq/L (97-110); CREATININE 3.6 mg/dL (0.7-1.3); GLOMERULAR FILTRATION RATE 17; GLUCOSE 211 mg/dL (70-100); MAGNESIUM 1.7 mg/dL (1.6-2.3); POTASSIUM 3.4 mEq/L (3.5-5.2); SODIUM 137 mEq/L (134-144)
[2016-07-02] MEDS: POTASSIUM Cl (KCl) 100 ML IV PRN ×2 (20:36→20:47)
[2016-07-02] MEDS: MAGNESIUM SULF 2 GM/WATER 50 ML IV PRN (20:36)
[2016-07-02] MEDS ORDERED: HEPARIN 50,000 UNIT/10 ML VIAL ONE (21:00)
[2016-07-02] MEDS ORDERED: K PHOS 20 MMOL in D5W 250 ML IV ONE (21:00)
[2016-07-02 22:21] LABS: IONIZED CALCIUM 0.96 MMOL/L (1.12-1.30); PCO2 VENOUS 38 mmHg (40-44); PH VENOUS BLOOD 7.38 (7.31-7.42); PO2 VENOUS 141 mmHg (35-40); TCO2 VENOUS 23 mEq/L (23-27); VEN MEASURED OXYGEN SATURATION 99 % (65-75)
[2016-07-03] MEDS: methylPREDNISolone SOD SUCC 125 MG/2 ML VIAL IVP SCH ×4 (00:08→18:05)
[2016-07-03 00:38] LABS: PCO2 VENOUS 39 mmHg (40-44); PH VENOUS BLOOD 7.37 (7.31-7.42); PO2 VENOUS 132 mmHg (35-40); TCO2 VENOUS 23 mEq/L (23-27); VEN MEASURED OXYGEN SATURATION 99 % (65-75)
[2016-07-03 00:39] LABS: IONIZED CALCIUM 0.95 MMOL/L (1.12-1.30)
[2016-07-03 00:56] LABS: INR 2.45 (0.83-1.16); PROTIME(PATIENT) 26.8 SEC (12.0-15.0)
[2016-07-03 00:57] LABS: APTT 58.9 SEC (23.0-38.0)
[2016-07-03 01:01] LABS: ALBUMIN 2.5 g/dL (3.5-5.0); ANION GAP 13 mEq/L (8-16); CALCIUM 7.8 mg/dL (8.5-10.4); CARBON DIOXIDE 23 mEq/l (22-31); CHLORIDE 104 mEq/L (97-110); CREATININE 2.7 mg/dL (0.7-1.3); GLOMERULAR FILTRATION RATE 24; GLUCOSE 189 mg/dL (70-100); MAGNESIUM 1.8 mg/dL (1.6-2.3); SODIUM 140 mEq/L (134-144)
[2016-07-03] MEDS: HEPARIN 5,000 UNIT/0.5 ML SYR SC SCH ×3 (01:03→17:57)
[2016-07-03] MEDS: VANCOMYCIN 750 MG in D5W 150 ML IV SCH (01:03)
[2016-07-03] MEDS: REPL FLUID TYPE D CAPS 1 EA in WATER FOR INJECTION,STERILE 4,000 ML DIAL SCH ×7 (01:25→21:51)
[2016-07-03] MEDS ORDERED: CEFEPIME HCL 2 GM in D5W 100 ML IV SCH (02:00)
[2016-07-03] MEDS: B22GK4/0 PRISMASATE 5,000 ML DIAL SCH ×5 (03:12→21:07)
[2016-07-03] MEDS: NS 1,000 ML MISC SCH ×7 (03:14→21:52)
[2016-07-03] MEDS: fentaNYL/NACL 100 ML IV SCH (05:21)
[2016-07-03] MEDS: LORazepam 2 MG/ML INJ IVP PRN (05:21)
[2016-07-03 05:49] LABS: PCO2 VENOUS 39 mmHg (40-44); PH VENOUS BLOOD 7.35 (7.31-7.42); PO2 VENOUS 155 mmHg (35-40); TCO2 VENOUS 23 mEq/L (23-27); VEN MEASURED OXYGEN SATURATION 99 % (65-75)
[2016-07-03 05:52] LABS: HEMATOCRIT 27.1 % (40.0-51.0); HEMOGLOBIN 8.9 g/dL (13.7-17.5); MEAN CELL HEMOGLOBIN 27.2 pg (27.9-34.1); MEAN CELL HEMOGLOBIN CONCENTR. 32.8 g/dL (32.4-36.7); MEAN CELL VOLUME 82.9 fL (81.5-99.8); RED BLOOD CELL COUNT 3.27 10^6/uL (4.40-6.38); RED CELL DISTRIBUTION WIDTH 17.1 % (11.5-15.2)
[2016-07-03 06:18] LABS: ALBUMIN 2.6 g/dL (3.5-5.0); ANION GAP 13 mEq/L (8-16); CARBON DIOXIDE 24 mEq/l (22-31); CHLORIDE 104 mEq/L (97-110); CREATININE 2.3 mg/dL (0.7-1.3); GLOMERULAR FILTRATION RATE 29; GLUCOSE 165 mg/dL (70-100); MAGNESIUM 1.7 mg/dL (1.6-2.3); POTASSIUM 3.8 mEq/L (3.5-5.2); SODIUM 141 mEq/L (134-144)
[2016-07-03] MEDS: MAGNESIUM SULF 2 GM/WATER 50 ML IV PRN ×2 (06:24→18:49)
[2016-07-03 06:35] LABS: BASE EXCESS -3.6 mEq/L (-2.5-2.5); BICARBONATE 21 mEq/L (22-26); MEASURED OXYGEN SATURATION 99 % (92-95); PCO2 39 mmHg (34-38); PO2 135 mmHg (65-75); TCO2 22 mEq/L (23-27)
[2016-07-03] MEDS: CALCIUM CHLORIDE 5.7 GM in NS 1,000 ML IV SCH ×2 (06:38→18:41)
[2016-07-03 06:40] LABS: O2 CONCENTRATIION 40 % (0-100); P/F RATIO 338 RATIO; SIMV YES
[2016-07-03 06:41] LABS: PATIENT RATE 16; PIP 25; PRESSURE SUPPORT 7
[2016-07-03 06:53] LABS: IONIZED CALCIUM 1.01 MMOL/L (1.12-1.30)
--- NOTE | 2016-07-03 08:19 | HOSPPROG ---
Hospitalist Progress Note Assessment/Plan: #Septic shock: multifactorial: suspect acutely due to influenza. Seen by Dr Romo 06/29 and started on Bactrim for sternal incision infection. Plan was for elective drainage of wound early next week. Dr. Romo aware. 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 Contact Dr. Khan -cont Vanc, added Invanz with h/o ESBL -Levophed #Acute on chronic hypoxic resp failure: due to flu, volume overload #h/o ESBL Klebsiella PNA (September 2015) -add Invanz -ID to evaluate #ESRD: appreciate renal consult. Plan for CRRT. 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 Concern for infection vs abscess at surgical site. Cont Vanc. Blood cultures pending. No vegetations on TTE #h/o CVA: residual left sided deficits. Doing rehab per sister #Acute encephalopathy: due to critical illness, sedation. CTH with no acute ischemia. #Acutely decompensated systolic HF (EF now 45-50%). Volume overloaded. Plan for CRRT today. Tunneled line placed by Dr. Romo #NSTEMI: trop 0.5-->1.6--> 2 -likely to acute illness. Reviewed TTE with cardiology and no focal wall abnormality to suggest ACS. #Atrial fibrillation: due to acute illness. Consider heparin tomorrow if does not convert #Lactic acidosis: resolved with IVFs #Goals: sister, Aditya, is MDPOA. ([phone]) MOST May 2016: Full code. She wants to continue all treatment at this time to give him a chance Critical care time: 90min. 30min bedside with patient and reviewing records. 60 min coordinating care with ID, renal, surgery and Jack Tamp Operator and goals discussion with sister Objective: Vital Signs Temp Pulse Resp BP Pulse Ox 35.5 C L 60 16 103/53 L 100 07/03/16 06:00 07/03/16 06:00 07/03/16 06:00 07/03/16 06:00 07/03/16 06:00 Microbiology 07/02/16 07:05 - Final Sputum, Induced/Suctioned Laboratory Results 07/03/16 05:23 07/03/16 05:23 07/02/16 07/03/16 07/04/16 05:59 05:59 05:59 Intake Total 6500 1166 Output Total 0 625 Balance 6500 541 PT 26.8 SEC (12.0-15.0) H 07/03/16 00:20 INR 2.45 (0.83-1.16) H 07/03/16 00:20 ICD10 Worksheet Patient Problems: Problems Problem Status Diagnosed Respiratory failure Acute Sepsis Acute
[2016-07-03] MEDS: CHLORHEXIDINE GLUCONATE 15 ML UDL PO SCH ×2 (08:30→21:07)
[2016-07-03] MEDS: OSELTAMIVIR 6 MG/ML UDSYR PO SCH (08:33)
[2016-07-03] MEDS: PANTOPRAZOLE SODIUM 40 MG in NS 100 ML IV SCH (08:34)
[2016-07-03] MEDS: ERTAPENEM 0.5 GM in NS 50 ML IV SCH (08:35)
[2016-07-03] MEDS: POTASSIUM Cl (KCl) 100 ML IV PRN (08:35)
--- NOTE | 2016-07-03 09:00 | DX ---
Portable AP Upright Chest July 03, 2016 at 6:11 a.m. Clinical History: 61-year-old male in the ICU for evaluation of pneumonia and edema. Comparison Study: Chest, dated July 02, 2016. Findings: The patient is rotated to the left. The endotracheal tube, esophagogastric tube, telemetry monitoring lead lines, oxygen tubing, mediastinal surgical clips, and an aortic valve replacement are similar in appearance. The cardiac silhouette remains enlarged. The pulmonary vasculature is congest ed. There is some persistent left retrocardiac consolidation, as well as a mild alveolar opacity in t he right upper lobe. These could reflect areas of pneumonia or alveolar edema. Trace blunting of the left costophrenic angle is observed. Impression: Postoperative changes following CABG and an aortic valvuloplasty with cardiomegaly, pulmo nary vascular congestion, and bilateral airspace disease, perhaps slightly increased in the right upp er lobe, compared to yesterday's study.
--- NOTE | 2016-07-03 09:49 | SOAPPROG ---
SOAP Progress Note Assessment/Plan: Assessment: 61-year-old male well known to me admitted with the sepsis possibly secondary to influenza. He also has a sternal wound infections with multiple pustules along the tract of his median sternotomy scar . At present time he is in renal failure from his sepsis and requiring multiple pressors and in [place] temporary dialysis catheter. Risk an option fully discussed with his family who wished to proceed Plan: a groin temporary dialysis catheter will be placed 07/02/16 16:57 07/03/16 09:47 OVERALL IMPROVING ON LESS PRESSORS. MAY STILL NEED STERNAL DEBRIDEMENT WHEN MORE STABLE Objective: Vital Signs Temp Pulse Resp BP Pulse Ox 35.9 C L 63 16 104/53 L 100 07/03/16 08:00 07/03/16 08:25 07/03/16 08:00 07/03/16 08:00 07/03/16 08:25 Microbiology 07/02/16 07:05 - Final Sputum, Induced/Suctioned Laboratory Results 07/03/16 05:23 07/03/16 05:23 07/02/16 07/03/16 07/04/16 05:59 05:59 05:59 Intake Total 6500 1166 Output Total 0 625 Balance 6500 541 PT 26.8 SEC (12.0-15.0) H 07/03/16 00:20 INR 2.45 (0.83-1.16) H 07/03/16 00:20 ICD10 Worksheet Patient Problems: Problems Problem Status Diagnosed Respiratory failure Acute Sepsis Acute
--- NOTE | 2016-07-03 11:01 | SOAPPROG ---
SOAP Progress Note Assessment/Plan: Assessment: 1)ESRD- ARY Michel -given sepsis requiring pressors, initiated CRRT 07/02 with R fem line placed by Dr. Romo -Current Rx: CVVHDF with citrate, Qb 200, Qr 1200, Qd 1200, CaCl gtt @ 90, UF - 50 cc/hr -Will keep goal max UF at 50 cc/hr for now- discussed with RN 2)Acute Hypoxic Resp Failure -on vent FIO2 40% -Influenza A positive- on tamiflu -TTE with worse LVEF 45% and CXR suggestive of pulm edema as well 3)sepsis on pressors -influenza A positive and concern for sternal wound infection -has h/o ESBL pna last year -blood Cx NGTD, urine Cx yeast -on broad spectrum antibiotics 4)sternal wound infection- Dr. Romo following -chest CT concerning for osteomyelitis 5)s/p mitral valve replacement and AV debridement in 10/11 -TTE here no vegetations -blood cx NGTD 6)NSTEMI -TTE this admit with acute worsening LVEF- 45% 7)anemia of CKD -will verify outpt Epo dosing from outpt HD unit records in am I discussed with EMS DIRECTOR Sravanthi Avelar MD [facility] [phone] pager 07/03/16 11:36 Subjective: Pt seen on CRRT at 11:15. He is using CVVHDF with R fem HD line with Qb 200, Qr 1200, Qd 1200, CaCl gtt @ 90, UF -50 cc/hr. Levophed @ 6 (improved), FIO2 40%. Tolerating CRRT well so far- I discussed with RN. Objective: Vital Signs Temp Pulse Resp BP Pulse Ox 36.3 C 61 16 90/43 L 100 07/03/16 10:00 07/03/16 10:00 07/03/16 10:00 07/03/16 10:00 07/03/16 10:00 Microbiology 07/02/16 07:05 - Final Sputum, Induced/Suctioned Laboratory Results 07/03/16 05:23 07/03/16 05:23 07/02/16 07/03/16 07/04/16 05:59 05:59 05:59 Intake Total 6500 1166 Output Total 0 625 Balance 6500 541 PT 26.8 SEC (12.0-15.0) H 07/03/16 00:20 INR 2.45 (0.83-1.16) H 07/03/16 00:20 ICD10 Worksheet Patient Problems: Problems Problem Status Diagnosed Respiratory failure Acute Sepsis Acute
[2016-07-03 12:09] LABS: PCO2 VENOUS 37 mmHg (40-44); PH VENOUS BLOOD 7.33 (7.31-7.42); PO2 VENOUS 53 mmHg (35-40); TCO2 VENOUS 20 mEq/L (23-27); VEN MEASURED OXYGEN SATURATION 85 % (65-75)
[2016-07-03 12:12] LABS: O2 CONCENTRATIION 40 % (0-100); SIMV YES
[2016-07-03 12:13] LABS: PATIENT RATE 16; PRESSURE SUPPORT 7
[2016-07-03 12:20] LABS: APTT 41.1 SEC (23.0-38.0); INR 2.01 (0.83-1.16); PROTIME(PATIENT) 22.9 SEC (12.0-15.0)
[2016-07-03 12:24] LABS: ALBUMIN 2.7 g/dL (3.5-5.0); ANION GAP 12 mEq/L (8-16); CALCIUM 7.9 mg/dL (8.5-10.4); CARBON DIOXIDE 23 mEq/l (22-31); CHLORIDE 106 mEq/L (97-110); CREATININE 1.9 mg/dL (0.7-1.3); GLOMERULAR FILTRATION RATE 36; GLUCOSE 137 mg/dL (70-100); POTASSIUM 4.3 mEq/L (3.5-5.2); SODIUM 141 mEq/L (134-144)
--- NOTE | 2016-07-03 13:12 | PDINTPN ---
Graduate Student Instructor Progress Note Assessment/Plan: Assessment: Sepsis: Continues to have hypotension requiring NE, currently at 7. Most likely due to Influenza A, although could have superimposed bacterial pneumonia. On Ertapenam/Vanco. ESRD: On CVVHD, minimal fluid being taken off. Hx MR endocarditis with subsequent MVR September 2015: TTE didn't show any vegetations Sternal wound infection: CT suspicious for sternal osteo, but unlikely to be contributing to the current clinical deterioration. Elevated troponins: Peaked at 2.0, now falling. Likely due to hypotension.shock Hx CVA Hx peritonitis. AF: Now NSR Plan: Continue mechanical ventilation, antibiotics, CVVHD. Recheck CK. Pressors PRN. Appreciate ID help 07/03/16 13:24 Subjective: Intubated, sedated. Objective: Vital Signs Temp Pulse Resp BP Pulse Ox 36.6 C 67 16 115/49 L 100 07/03/16 12:54 07/03/16 12:54 07/03/16 12:54 07/03/16 12:54 07/03/16 12:54 Microbiology 07/02/16 07:05 - Final Sputum, Induced/Suctioned Laboratory Results 07/03/16 05:23 07/03/16 11:45 07/02/16 07/03/16 07/04/16 05:59 05:59 05:59 Intake Total 6500 1166 Output Total 0 625 Balance 6500 541 PT 22.9 SEC (12.0-15.0) H 07/03/16 11:45 INR 2.01 (0.83-1.16) H 07/03/16 11:45 Laboratory Tests 07/03/16 07/03/16 06:24 11:45 INR 2.01 H pCO2 39 H pO2 135 H Total CO2 22 L ABG pH 7.35 ABG O2 Saturation 99 H O2 Concentration % 40 Actual Respiration Rate 16 SIMV YES Tidal Volume 500 PEEP 5 Pressure Support 7 CXR: Little change. Images reviewed. Physical Exam - Physical Exam General Appearance: no apparent distress, No alert EENT: normal ENT inspection Neck: normal inspection Respiratory: chest non-tender, lungs clear, normal breath sounds Cardiac/Chest: regular rate, rhythm, No edema Abdomen: normal bowel sounds, non-tender, soft Skin: normal color, warm/dry Extremities: non-tender Neuro/Psych: No alert (sedated) ICD10 Worksheet Patient Problems: Problems Problem Status Diagnosed Respiratory failure Acute Sepsis Acute
[2016-07-03] MEDS: INSULIN LISPRO 100 UNIT/ML SC SCH ×2 (13:13→19:19)
[2016-07-03] MEDS ORDERED: PROPOFOL/EMULSION 500 MG/50 ML BOTTLE IV ONE (13:24)
[2016-07-03] MEDS: PROPOFOL/EMULSION 100 ML IV SCH (13:32)
--- NOTE | 2016-07-03 16:16 | PCMIDPN ---
Assessment/Plan: Assessment: Influenza A and acute respiratory failure-patient presented with acute decline from a senior living facility. Reportedly a couple of days of respiratory symptoms and cough. Patient was quite febrile upon presentation. Influenza a swab was positive. Patient has significant comorbidities. He is high risk for serious negative outcome from influenza. Continue oseltamivir and his other underlying antibiotics. Clinically he seems fairly stable. No continued fever although the CRRT will depress body temperatures. Plan: 1. Continue oseltamivir renally adjusted. 2. Continue ertapenem. 3. Follow cultures and clinical course. Subjective: Patient remains intubated and sedated. FiO2 at 40%. Oxygenation status is adequate. Patient is continuing on CRRT. No new events. Objective: oseltamivir #2 ertapenem #2 Vital Signs Temp Pulse Resp BP Pulse Ox 36.1 C 68 16 118/52 L 98 07/03/16 16:00 07/03/16 16:00 07/03/16 16:00 07/03/16 16:00 07/03/16 16:00 Microbiology 07/02/16 07:05 - Final Sputum, Induced/Suctioned Laboratory Results 07/03/16 05:23 07/03/16 11:45 07/02/16 07/03/16 07/04/16 05:59 05:59 05:59 Intake Total 6500 1166 Output Total 0 625 Balance 6500 541 - Physical Exam General Appearance: WD/WN, toxic, other (Intubated and sedated), No alert, No no apparent distress Respiratory: crackles, No lungs clear, No respiratory distress Cardiac/Chest: regular rate, rhythm, No tachycardia Skin: normal color, warm/dry, No rash Neuro/Psych: No alert ICD10 Worksheet Patient Problems: Problems Problem Status Diagnosed Respiratory failure Acute Sepsis Acute
[2016-07-03 18:01] LABS: IONIZED CALCIUM 1.04 MMOL/L (1.12-1.30); PCO2 VENOUS 40 mmHg (40-44); PH VENOUS BLOOD 7.33 (7.31-7.42); PO2 VENOUS 49 mmHg (35-40); TCO2 VENOUS 22 mEq/L (23-27); VEN MEASURED OXYGEN SATURATION 81 % (65-75)
[2016-07-03 18:02] LABS: END TIDAL CO2 39; O2 CONCENTRATIION 40 % (0-100); SIMV YES
[2016-07-03 18:03] LABS: PATIENT RATE 16; PRESSURE SUPPORT 7
--- NOTE | 2016-07-03 18:09 | HOSPPROG ---
Hospitalist Progress Note Assessment/Plan: #Septic shock: -acutely due to Influenza. Cont renally-dosed Tamiflu -sternal osteo on CT not likely acute issue -Levophed #Acute on chronic hypoxic resp failure: due to flu, volume overload. Vented #h/o ESBL Klebsiella PNA (September 2015): HCAP coverage with Papi Hess #ESRD: appreciate renal consult. 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 Concern sternal osteo. Blood cultures NGTD. No vegetations on TTE. Dr. Khan aware #h/o CVA: residual left sided deficits. Doing rehab per sister #Acute encephalopathy: due to critical illness, sedation. CTH with no acute ischemia. #Acutely decompensated systolic HF (EF now 45-50%). Volume overloaded. Plan for CRRT today. Tunneled line placed by Dr. Romo #NSTEMI: peaked at 2. Due to septic shock; no wall-motion abnormalities #Atrial fibrillation: due to acute illness. Consider heparin tomorrow if does not convert #Lactic acidosis: resolved with IVFs #Goals: sister, May, is MDPOA. ([phone]) MOST May 2016: Full code. Another discussion with her today; she wants to continue all cares at this point. I explained again that he is tenuous. Readdress goals daily. Time spent on visit: 45 min in which >50% spent counseling sister on prognosis , goals Subjective: no acute changes overnight Objective: Vital Signs Temp Pulse Resp BP Pulse Ox 36.4 C 68 16 106/48 L 98 07/03/16 17:55 07/03/16 17:55 07/03/16 17:55 07/03/16 17:55 07/03/16 17:55 Microbiology 07/02/16 07:05 - Final Sputum, Induced/Suctioned 07/02/16 07/03/16 07/04/16 05:59 05:59 05:59 Intake Total 6500 1166 Output Total 0 625 265 Balance 6500 541 -265 PT 22.9 SEC (12.0-15.0) H 07/03/16 11:45 INR 2.01 (0.83-1.16) H 07/03/16 11:45 - Physical Exam Constitutional: no apparent distress Eyes: PERRL Ears, Nose, Mouth, Throat: dry mucous membranes Cardiovascular: regular rate and rhythym Respiratory: rhonchi Gastrointestinal: normoactive bowel sounds Genitourinary: no bladder fullness Skin: warm Musculoskeletal: full muscle strength, other (femoral HD line in place) Psychiatric: other (sedated) ICD10 Worksheet Patient Problems: Problems Problem Status Diagnosed Respiratory failure Acute Sepsis Acute
[2016-07-03 18:10] LABS: HEMATOCRIT 26.8 % (40.0-51.0); HEMOGLOBIN 8.8 g/dL (13.7-17.5)
[2016-07-03 18:37] LABS: ALBUMIN 2.6 g/dL (3.5-5.0); ANION GAP 14 mEq/L (8-16); CALCIUM 7.8 mg/dL (8.5-10.4); CARBON DIOXIDE 21 mEq/l (22-31); CHLORIDE 107 mEq/L (97-110); CREATININE 1.5 mg/dL (0.7-1.3); GLOMERULAR FILTRATION RATE 48; GLUCOSE 140 mg/dL (70-100); MAGNESIUM 1.6 mg/dL (1.6-2.3); POTASSIUM 3.9 mEq/L (3.5-5.2); SODIUM 142 mEq/L (134-144)
[2016-07-03] MEDS: ACCESSORY DRAIN 1 EA BAG***SEND #2 INITIALLY MISC PRN ×2 (19:39→20:29)
[2016-07-04 00:34] LABS: IONIZED CALCIUM 1.06 MMOL/L (1.12-1.30); PCO2 VENOUS 35 mmHg (40-44); PH VENOUS BLOOD 7.35 (7.31-7.42); PO2 VENOUS 59 mmHg (35-40); TCO2 VENOUS 20 mEq/L (23-27); VEN MEASURED OXYGEN SATURATION 89 % (65-75)
[2016-07-04 00:56] LABS: INR 1.59 (0.83-1.16)
[2016-07-04 00:57] LABS: APTT 34.2 SEC (23.0-38.0)
[2016-07-04] MEDS: B22GK4/0 PRISMASATE 5,000 ML DIAL SCH ×6 (01:06→22:05)
[2016-07-04] MEDS: PROPOFOL/EMULSION 100 ML IV SCH ×2 (01:06→16:30)
[2016-07-04] MEDS: NS 1,000 ML MISC SCH ×6 (01:06→23:11)
[2016-07-04] MEDS: NOREPINEPHRINE BITARTRATE 16 MG in NS 250 ML IV SCH (01:06)
[2016-07-04] MEDS: REPL FLUID TYPE D CAPS 1 EA in WATER FOR INJECTION,STERILE 4,000 ML DIAL SCH ×7 (01:06→20:33)
[2016-07-04] MEDS: HEPARIN 5,000 UNIT/0.5 ML SYR SC SCH ×3 (01:07→17:41)
[2016-07-04] MEDS: methylPREDNISolone SOD SUCC 125 MG/2 ML VIAL IVP SCH ×4 (01:07→18:48)
[2016-07-04] MEDS: VANCOMYCIN 750 MG in D5W 150 ML IV SCH (01:09)
[2016-07-04 01:13] LABS: ALBUMIN 3.2 g/dL (3.5-5.0); ANION GAP 14 mEq/L (8-16); CALCIUM 8.1 mg/dL (8.5-10.4); CARBON DIOXIDE 20 mEq/l (22-31); CHLORIDE 106 mEq/L (97-110); CREATININE 1.4 mg/dL (0.7-1.3); GLOMERULAR FILTRATION RATE 52; GLUCOSE 153 mg/dL (70-100); SODIUM 140 mEq/L (134-144)
[2016-07-04] MEDS: CALCIUM CHLORIDE 5.7 GM in NS 1,000 ML IV SCH ×2 (05:54→16:20)
[2016-07-04] MEDS: fentaNYL/NACL 100 ML IV SCH ×2 (05:55→20:33)
[2016-07-04 06:08] LABS: BASE EXCESS -6.3 mEq/L (-2.5-2.5); BICARBONATE 18 mEq/L (22-26); IONIZED CALCIUM 1.09 MMOL/L (1.12-1.30); MEASURED OXYGEN SATURATION 94 % (92-95); PCO2 33 mmHg (34-38); PO2 72 mmHg (65-75); TCO2 19 mEq/L (23-27)
[2016-07-04 06:12] LABS: % IMMATURE GRANULYOCYTES 0.6 % (0.0-1.1); ABSOLUTE IMMATURE GRANULOCYTES 0.05 10^3/uL (0.00-0.10); ADD DIFF? NO; ADD MORPH? NO; ADD SCAN? NO; ATYPICAL LYMPHOCYTE FLAG 0 (0-99); FRAGMENT RBC FLAG 20 (0-99); HEMATOCRIT 27.1 % (40.0-51.0); HEMOGLOBIN 8.4 g/dL (13.7-17.5); LEFT SHIFT FLG 0 (0-99); LIPEMIA HEMOLYSIS FLAG 80 (0-99); MEAN CELL HEMOGLOBIN 26.6 pg (27.9-34.1); MEAN CELL VOLUME 85.8 fL (81.5-99.8); MEAN PLATELET VOLUME 10.7 fL (8.7-11.7); PLATELET CLUMPS FLAG 10 (0-99); PLATELET COUNT 222 10^3/uL (150-400); RED BLOOD CELL COUNT 3.16 10^6/uL (4.40-6.38); RED CELL DISTRIBUTION WIDTH 17.5 % (11.5-15.2)
[2016-07-04 06:13] LABS: O2 CONCENTRATIION 40 % (0-100); P/F RATIO 180 RATIO; PATIENT RATE 16; PIP 29.4; PRESSURE SUPPORT 7
[2016-07-04 06:28] LABS: ALBUMIN 3.1 g/dL (3.5-5.0); ANION GAP 15 mEq/L (8-16); CALCIUM 8.3 mg/dL (8.5-10.4); CARBON DIOXIDE 19 mEq/l (22-31); CHLORIDE 107 mEq/L (97-110); CREATININE 1.2 mg/dL (0.7-1.3); GLOMERULAR FILTRATION RATE > 60; GLUCOSE 154 mg/dL (70-100); MAGNESIUM 1.8 mg/dL (1.6-2.3); POTASSIUM 3.7 mEq/L (3.5-5.2); SODIUM 141 mEq/L (134-144)
[2016-07-04] MEDS: MAGNESIUM SULF 2 GM/WATER 50 ML IV PRN (06:34)
[2016-07-04] MEDS: POTASSIUM Cl (KCl) 100 ML IV PRN ×2 (06:34→07:43)
[2016-07-04] MEDS: INSULIN LISPRO 100 UNIT/ML SC SCH ×3 (07:38→20:32)
--- NOTE | 2016-07-04 08:18 | CPEKG ---
Heart Rate: 107 RR Interval: 561 QRSD Interval: 152 QT Interval: 396 QTC Interval: 529 QRS Harrison: 175 T Wave Harrison: -48 EKG Severity - ABNORMAL ECG - EKG Impression: Sinus rhythm with bigeminal PVC EKG Impression: RBBB LPFB Electronically Signed By: Ramesh Calderón 04-Jul-2016 10:54:54
[2016-07-04] MEDS: OSELTAMIVIR 6 MG/ML UDSYR PO SCH (09:11)
[2016-07-04] MEDS: PANTOPRAZOLE SODIUM 40 MG in NS 100 ML IV SCH (09:12)
[2016-07-04] MEDS: ERTAPENEM 0.5 GM in NS 50 ML IV SCH (09:12)
[2016-07-04] MEDS: CHLORHEXIDINE GLUCONATE 15 ML UDL PO SCH ×2 (09:14→20:12)
--- NOTE | 2016-07-04 09:47 | SOAPPROG ---
SOAP Progress Note Assessment/Plan: Assessment: 61yo male with multiple medical problems admitted with sepsis, seem recently in our office for sternal wound, s/p right groin dialysis catheter placement PE intubated chest 3 sternal wounds, no active drainage or surrounding erythema abdomen distended, very soft to palpation Plan: surgery for sternal wound when overall condition improves will return to place suture in dialysis catheter which has become loose seen with Dr Romo 07/04/16 09:42 Objective: Vital Signs Temp Pulse Resp BP Pulse Ox 36.3 C 57 L 16 105/54 L 99 07/04/16 09:00 07/04/16 09:00 07/04/16 09:00 07/04/16 09:00 07/04/16 09:00 Microbiology 07/02/16 07:05 - Final Sputum, Induced/Suctioned Laboratory Results 07/04/16 05:45 07/04/16 05:40 07/03/16 07/04/16 07/05/16 05:59 05:59 05:59 Intake Total 1166 Output Total 625 832 Balance 541 -832 PT 19.0 SEC (12.0-15.0) H 07/04/16 00:10 INR 1.59 (0.83-1.16) H 07/04/16 00:10 ICD10 Worksheet Patient Problems: Problems Problem Status Diagnosed Respiratory failure Acute Sepsis Acute
--- NOTE | 2016-07-04 10:23 | WOCRNPDOC ---
[facility] Advanced Assessment Note - Skin Integrity Problem, Advanced Assess Medial Sternal Surgical Wound/Incision Dressing Type: Gauze Dressing Description: Clean/Dry, Intact Exudate Amount: Minimal Exudate Characteristic(s): Bloody Integumentary Issue Intervention: Dressing Changed, Dressing Initialed & Dated, Silver Nitrate Application (to middle wound hyper granulation) Jillian Wound Tissue: Erythema (along sternum) Jillian Wound Swelling: None Wound Bed Color: [place], Red Wound Bed Constitution: Granulation Tissue, Smooth Tissue, Hypergranulation ( middle wound) Site Measurement - Head-to-Toe Length X Width X Depth (cm): from proximal to distal: 1x1x0.2, 0.6x0.6xraised hyper gran, 0.5x0.5x0.4 (soft cavity) Skin Integrity Problem Comment: Cleaned with wound cleanser and gauze. Strip of hydrofera blue placed over all 3. Covered with Allevyn life. Distal wound soft. Middle wound cauterized with silver nitrate. Superior wound partial thickness. Karuna STEINER in room for care. Will round again either Mon or .
--- NOTE | 2016-07-04 11:26 | PCMIDPN ---
Assessment/Plan: Assessment/Plan: * Bilateral pneumonia with influenza and possible superimposed bacterial component: Remains intubated with CRRT. Continue vancomycin, ertapenem and Tamiflu adjusted for COOLER TENDER. 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 Further evaluation limited by current severity of illness. 07/04/16 11:23 Objective: Vital Signs Temp Pulse Resp BP Pulse Ox 36.3 C 57 L 16 105/54 L 99 07/04/16 09:00 07/04/16 09:00 07/04/16 09:00 07/04/16 09:00 07/04/16 09:00 Microbiology 07/02/16 07:05 - Final Sputum, Induced/Suctioned Sputum Culture - Final Odette Albicans Laboratory Results 07/04/16 05:45 07/04/16 05:40 07/03/16 07/04/16 07/05/16 05:59 05:59 05:59 Intake Total 1166 Output Total 625 832 Balance 541 -832 - Physical Exam General Appearance: other (Intubated, sedated) EENT: No scleral icterus, No conjunctival petechiae Respiratory: coarse breath sounds (Bilaterally and diffuse) Cardiac/Chest: regular rate, rhythm, other (3 discrete ulcerations over sternal incision line without expressible drainage; no surrounding cellulitis), No systolic murmur Extremities: other (Right femoral dialysis catheter in place) Abdomen: non-tender, No distended ICD10 Worksheet Patient Problems: Problems Problem Status Diagnosed Respiratory failure Acute Sepsis Acute
--- NOTE | 2016-07-04 12:00 | SOAPPROG ---
SOAP Progress Note Assessment/Plan: Assessment/Plan: ESRD: pt has regular HD, currently in ICU with shock requiring pressor support. - Will continue CRRT for now. - Whenever CRRT goes down (likely tomorrow), will plan to hold and try to resume intermittent HD if able. - Fluid removal at 50ml/hr currently. - Using citrate for anticoagulation. Acidosis: pt with pH at 7.36, having slightly lower bicarb. Will continue to monitor for now, may need to add bicarb if acidemia worsens. Shock: pt remains on pressors although weaning down, on abx for likely sepsis. Plan: 07/04/16 12:01 07/04/16 12:02 Subjective: No acute events overnight. Pt remains on levophed but weaned down to 2/hr. Pt remains on CRRT, running well and pulling 50ml/hr. Objective: Vital Signs Temp Pulse Resp BP Pulse Ox 36.3 C 57 L 16 105/54 L 99 07/04/16 09:00 07/04/16 09:00 07/04/16 09:00 07/04/16 09:00 07/04/16 09:00 Microbiology 07/02/16 07:05 - Final Sputum, Induced/Suctioned Sputum Culture - Final Odette Albicans Laboratory Results 07/04/16 05:45 07/04/16 05:40 07/03/16 07/04/16 07/05/16 05:59 05:59 05:59 Intake Total 1166 Output Total 625 832 Balance 541 -832 PT 19.0 SEC (12.0-15.0) H 07/04/16 00:10 INR 1.59 (0.83-1.16) H 07/04/16 00:10 General: sedated, no acute distress OP: intubated CV: RRR Resp: intubated and on vent Abd: Soft, NT, slightly distended Ext: no edema BLE Access: femoral temp catheter ICD10 Worksheet Patient Problems: Problems Problem Status Diagnosed Respiratory failure Acute Sepsis Acute
[2016-07-04 12:12] LABS: IONIZED CALCIUM 1.13 MMOL/L (1.12-1.30); PATIENT RATE 16; PCO2 VENOUS 39 mmHg (40-44); PH VENOUS BLOOD 7.32 (7.31-7.42); PO2 VENOUS 53 mmHg (35-40); PRESSURE SUPPORT 7; SIMV YES; TCO2 VENOUS 21 mEq/L (23-27); VEN MEASURED OXYGEN SATURATION 86 % (65-75)
[2016-07-04 12:13] LABS: O2 CONCENTRATIION 40 % (0-100)
[2016-07-04 12:22] LABS: INR 1.51 (0.83-1.16); PROTIME(PATIENT) 18.2 SEC (12.0-15.0)
[2016-07-04 12:23] LABS: APTT 31.5 SEC (23.0-38.0)
[2016-07-04 12:26] LABS: ALBUMIN 2.9 g/dL (3.5-5.0); ANION GAP 11 mEq/L (8-16); CALCIUM 8.3 mg/dL (8.5-10.4); CARBON DIOXIDE 21 mEq/l (22-31); CHLORIDE 107 mEq/L (97-110); CREATININE 1.1 mg/dL (0.7-1.3); GLOMERULAR FILTRATION RATE > 60; GLUCOSE 133 mg/dL (70-100); MAGNESIUM 2.3 mg/dL (1.6-2.3); POTASSIUM 4.2 mEq/L (3.5-5.2); SODIUM 139 mEq/L (134-144)
--- NOTE | 2016-07-04 13:17 | GOP ---
[f rep st] OPERATIVE REPORT DATE OF OPERATION: 07/04/2016 SURGEON: Kentno Romo MD PREOPERATIVE DIAGNOSIS: Sepsis and acute renal failure. POSTOPERATIVE DIAGNOSIS: Sepsis and acute renal failure. PROCEDURE PERFORMED: Right groin ultrasound-guided dialysis catheter placement. FINDINGS: The patient was found to have good position and good flow the catheter. DESCRIPTION OF PROCEDURE: The patient was prepped and draped in the usual sterile fashion, anesthetized with 1% Xylocaine. Using ultrasound, the femoral vein was identified. A direct stick was made. Guidewire was introduced. Dilators were passed over the guidewire and then a Markurar catheter was introduced through the right common femoral vein into the iliac vein in the lower vena cava. Good backflow was present. The catheter was flushed with heparin and saline and secured at the exit site with 3-0 nylon sutures. He tolerated the procedure quite well. There were no complications. /[id number]/MODL MTDD
--- NOTE | 2016-07-04 13:43 | PDINTPN ---
Toe Lining Closer Progress Note Assessment/Plan: Assessment: Sepsis: Continues to have hypotension requiring NE, decreased to 4. Most likely due to Influenza A, although could have superimposed bacterial pneumonia. Had resistant Klebsiella in past. Id aware. On Ertapenam/Vanco/acyclovir. Acute respiratory failure. On the ventilator. Not ready for extubation but we can start CPAP weans. ESRD: On CVVHD, minimal fluid being taken off. Has essentially no urine output. We can perhaps take his Herrera catheter out and go to intermittent straight caths. Will discuss with Renal. Hx MR endocarditis with subsequent MVR September 2015: TTE didn't show any vegetations. Sternal wound infection: CT suspicious for sternal osteo, but unlikely to be contributing to the current clinical deterioration. Being seen by surgery and wound care. Once he is better may require surgical exploration. Hx CVA Hx peritonitis. AF: Now NSR Nutrition: None. Will start trickle tube feeds and advance as tolerated. OG tube is in place. DVT prophylaxis: Subcu hepari GI prophylaxis: Pantoprazole Plan: Continue mechanical ventilation, sedation/pain control per protocols, antibiotics, pressors as needed, CVVHD. Began CPAP trials. Follow laboratory and chest x-ray. DC Herrera if okay with renal. 50 minutes of critical care time spent directly with the patient. Discussed with nursing, respiratory, Infectious Disease, surgery, and the ICU multi disciplinary team. Subjective: Sedated, on the ventilator, appears comfortable. Objective: Vital Signs Temp Pulse Resp BP Pulse Ox 36.1 C 68 16 124/52 H 100 07/04/16 12:56 07/04/16 12:56 07/04/16 12:56 07/04/16 12:56 07/04/16 12:56 Microbiology 07/02/16 07:05 - Final Sputum, Induced/Suctioned Sputum Culture - Final Odette Albicans Laboratory Results 07/04/16 05:45 07/04/16 11:55 07/03/16 07/04/16 07/05/16 05:59 05:59 05:59 Intake Total 1166 Output Total 625 832 Balance 541 -832 PT 18.2 SEC (12.0-15.0) H 07/04/16 11:55 INR 1.51 (0.83-1.16) H 07/04/16 11:55 Laboratory Tests 07/04/16 07/04/16 05:50 11:55 PT 18.2 H INR 1.51 H APTT 31.5 pCO2 33 L pO2 72 ABG pH 7.36 ABG O2 Saturation 94 O2 Concentration % 40 Actual Respiration Rate 16 Tidal Volume 500 PEEP 5 Pressure Support 7 Calcium 8.3 L Phosphorus 2.9 Magnesium 2.3 Albumin 2.9 L Physical Exam - Physical Exam General Appearance: other (Sedated, on ventilator), No alert EENT: ET tube, other (OG in place) Neck: other (Left triple-lumen catheter in place) Respiratory: decreased breath sounds (Breath sounds coarse at the bases with some congestion. No emmett rhonchi, a few rales. Minimal secretions), No normal breath sounds, No respiratory distress Cardiac/Chest: bradycardia Abdomen: non-tender, soft, No normal bowel sounds Male Genitalia: other (Herrera catheter, little urine output. ) Skin: warm/dry, pallor Lymphatic: no adenopathy Extremities: pedal edema (Trace lower extremity edema. Boots and SCDs in place) Neuro/Psych: cognition abnormalities (Hard to assess currently. Not following commands for me but sedated. Opens eyes), No no motor/sensory deficits (Status post stroke affecting left side.) ICD10 Worksheet Patient Problems: Problems Problem Status Diagnosed Respiratory failure Acute Sepsis Acute
[2016-07-04] MEDS ORDERED: methylPREDNISolone SOD SUCC 125 MG/2 ML VIAL IVP SCH (13:57)
--- NOTE | 2016-07-04 15:22 | HOSPPROG ---
Hospitalist Progress Note Assessment/Plan: 61 yo M with hx of ESRD, as well as prior CVA, CAD and a fib presenting with septic shock in setting of influenza # septic shock: in setting of influenza with likely superimposed bacterial infection as well. Still on levophed, but weaning off as we are able. ID following. Continued on ertapenem, vanco, tamiflu. # acute on chronic respiratory failure: at baseline on 3L of o2, currently intubated in setting of PNA, as well as pulmonary edema. RV severely dilated and other consideration would be for PE, no DVT on US though limited study. Pulmonary involved, continue current mgmt for now # eSRD: patient anuric, on CVVHD, renal following # sternal osteomyelitis: likely subacute or chronic and not primary etiology for sepsis. Gen surg involved with plans for likely surgical debridement in coming days # acute on chronic systolic/right sided heart failure: with EF mildly low at 45 % and e/o pulmonary edema as above, given shock unable to remove fluid significantly during HD. Does have e/o moderate to severe RV dilation and RVSP of 45-50, in setting of chronic lung disease, but will need to consider PE if above not improving as well. # NSTEMI: with trop peaking at 2 and likely related to supply/demand mismatch in setting of sepsis/shock # h/o ESBL klebsiella PNA/ hx of MV/AV endocarditis, hx of CVA # code status: has been a bit confusing, patient previously dnr, most recent most saying FC. Now DNR again, but ok for intubation. Sister Aditya is MDPOA # patient newly in my care. Records including consult notes and progress notes reviewed. Care plan reviewed with Dr. Leung and multidisciplinary care team. Subjective: no significant overnight events, patient remains intubated, sedated and minimally responsive Objective: Vital Signs Temp Pulse Resp BP Pulse Ox 36.3 C 63 16 112/57 L 99 07/04/16 15:00 07/04/16 15:00 07/04/16 15:00 07/04/16 15:00 07/04/16 15:00 Microbiology 07/02/16 07:05 - Final Sputum, Induced/Suctioned Sputum Culture - Final Odette [facility] Laboratory Results 07/04/16 05:45 07/04/16 11:55 07/03/16 07/04/16 07/05/16 05:59 05:59 05:59 Intake Total 1166 Output Total 395 832 Balance 541 -832 PT 18.2 SEC (12.0-15.0) H 07/04/16 11:55 INR 1.51 (0.83-1.16) H 07/04/16 11:55 intubated sedated anicteric ett in place rrr systolic murmur bronchial breath sounds, dec at bases soft nt nd no cce warm dry well perfused sedated ICD10 Worksheet Patient Problems: Problems Problem Status Diagnosed Respiratory failure Acute Sepsis Acute
--- NOTE | 2016-07-04 17:26 | PDPCPN ---
Palliative Care Progress Note Assessment/Plan: Referring provider: Dr Sellers Reason for consult: Complex medical decision making Symptom control HPI: Zacarias Uriostegui is a 61 yo male with PMH developmental delay, MV endocarditis s/p replacement with complications of CVA requiring trach/PEG support and ESRD admitted to the hospital from [facility] for SOB. On arrival with respiratory failure requiring intubation. Flu+ with possible PNA on antibiotics and tamiflu. Ct chest found to have sternal osteo but not likely causing acute issue at this time. Palliative care consulted for complex medical decision making. Met with sister Aditya outside of the room. We reviewed the medical condition at present with continued ventilator support and CRRT but with improvement in respiratory status with possible weaning trials today. Aditya states over the past year Zacarias has gone from living independently and even driving himself to being in the hospital for a prolonged stay with 2 months at a LTAC. He was then moved to LTC eventually at [facility] where he had been gaining strength. He was mostly wheelchair bound but the SNF was working towards having him be just assist with transfers. She states he had a good quality of life up until he was admitted. He was ok with his poor physical status as he still enjoyed spending time with his family. They take him out to eat lunch and visit daily. She states she understands he is very ill and may not live. She would not want him to have CPR and feels his wishes are the same as he would not want to be in a vegetative state. She feels unsure what to do right now. She states she does not want him to suffer and understands how sick he is but also that he has recovered previously to a good quality of life. She states if he had said that he was done she would move to comfort only but she feels Zacarias has said he wants to continue to live. We discussed seeing how he does over the next couple of days and if he declines then discussing comfort care only but if he improves potentially having a conversation with Zacarias about his wishes. Assessment: Physical: - Pain: appears comfortable - tylenol PRN - follow non verbal s/s of pain - Dyspnea: - on ventilator - fentanyl PRN and drip Emotional/psychological: sedated at present. Advanced Care Planning: Is patient decisional?: No Code Status: DNR POA: sister Aditya is MDPOA. Plan: Continue care level of care. Will see how he does over the next several days. If he worsens then will revisit conversation around comfort care. Subjective: sedated on ventilator Objective: Social History: 2 sisters very involved. Previously was independent now lives at [facility] Medication list reviewed ROS: unable to obtain Functional assessment: PPS: 30% Functional status: dependent on ADLs, IADLs Vital Signs Temp Pulse Resp BP Pulse Ox 36.2 C 55 L 16 116/56 L 100 07/04/16 16:00 07/04/16 16:00 07/04/16 16:00 07/04/16 16:00 07/04/16 16:00 Microbiology 07/02/16 07:05 - Final Sputum, Induced/Suctioned Sputum Culture - Final Odette [facility]icans Laboratory Results 07/04/16 05:45 07/04/16 11:55 07/03/16 07/04/16 07/05/16 05:59 05:59 05:59 Intake Total 1166 Output Total 625 832 Balance 541 -832 PT 18.2 SEC (12.0-15.0) H 07/04/16 11:55 INR 1.51 (0.83-1.16) H 07/04/16 11:55 Physical Exam - Physical Exam General Appearance: no apparent distress, other (sedated) Respiratory: decreased breath sounds, No respiratory distress, No accessory muscle use Skin: normal color, warm/dry Neuro/Psych: other (sedated on ventilator) ICD10 Worksheet Patient Problems: Problems Problem Status Diagnosed Palliative care encounter Acute Respiratory failure Acute Sepsis Acute - ICD10 Problem Qualifiers (1) Palliative care encounter
[2016-07-04 18:01] LABS: IONIZED CALCIUM 1.12 MMOL/L (1.12-1.30); PCO2 VENOUS 36 mmHg (40-44); PH VENOUS BLOOD 7.34 (7.31-7.42); PO2 VENOUS 56 mmHg (35-40); TCO2 VENOUS 20 mEq/L (23-27); VEN MEASURED OXYGEN SATURATION 88 % (65-75)
[2016-07-04 18:02] LABS: END TIDAL CO2 39; O2 CONCENTRATIION 40 % (0-100); PATIENT RATE 16; SIMV YES
[2016-07-04 18:03] LABS: PRESSURE SUPPORT 7
[2016-07-04 18:19] LABS: ALBUMIN 2.9 g/dL (3.5-5.0); ANION GAP 13 mEq/L (8-16); CALCIUM 8.6 mg/dL (8.5-10.4); CARBON DIOXIDE 21 mEq/l (22-31); CHLORIDE 105 mEq/L (97-110); CREATININE 1.1 mg/dL (0.7-1.3); GLOMERULAR FILTRATION RATE > 60; GLUCOSE 147 mg/dL (70-100); MAGNESIUM 1.9 mg/dL (1.6-2.3); POTASSIUM 3.9 mEq/L (3.5-5.2); SODIUM 139 mEq/L (134-144)
[2016-07-04] MEDS: ACCESSORY DRAIN 1 EA BAG***SEND #2 INITIALLY MISC PRN ×2 (20:33→20:34)
[2016-07-05 00:24] LABS: IONIZED CALCIUM 1.12 MMOL/L (1.12-1.30); PCO2 VENOUS 36 mmHg (40-44); PH VENOUS BLOOD 7.32 (7.31-7.42); PO2 VENOUS 66 mmHg (35-40); TCO2 VENOUS 19 mEq/L (23-27); VEN MEASURED OXYGEN SATURATION 92 % (65-75)
[2016-07-05 00:41] LABS: INR 1.36 (0.83-1.16); PROTIME(PATIENT) 16.8 SEC (12.0-15.0)
[2016-07-05 00:42] LABS: APTT 29.9 SEC (23.0-38.0)
[2016-07-05 00:48] LABS: ALBUMIN 3.2 g/dL (3.5-5.0); ANION GAP 14 mEq/L (8-16); CALCIUM 8.5 mg/dL (8.5-10.4); CARBON DIOXIDE 21 mEq/l (22-31); CHLORIDE 107 mEq/L (97-110); GLOMERULAR FILTRATION RATE > 60; GLUCOSE 145 mg/dL (70-100); MAGNESIUM 1.7 mg/dL (1.6-2.3); POTASSIUM 3.8 mEq/L (3.5-5.2); SODIUM 142 mEq/L (134-144)
[2016-07-05] MEDS: REPL FLUID TYPE D CAPS 1 EA in WATER FOR INJECTION,STERILE 4,000 ML DIAL SCH ×6 (01:11→16:49)
[2016-07-05] MEDS: B22GK4/0 PRISMASATE 5,000 ML DIAL SCH ×4 (01:11→15:07)
[2016-07-05] MEDS: methylPREDNISolone SOD SUCC 125 MG/2 ML VIAL IVP SCH ×4 (01:12→18:57)
[2016-07-05] MEDS: MAGNESIUM SULF 2 GM/WATER 50 ML IV PRN (01:12)
[2016-07-05] MEDS: HEPARIN 5,000 UNIT/0.5 ML SYR SC SCH ×3 (01:12→17:55)
[2016-07-05] MEDS: VANCOMYCIN 750 MG in D5W 150 ML IV SCH (01:59)
[2016-07-05] MEDS: NS 1,000 ML MISC SCH ×4 (02:35→16:48)
[2016-07-05] MEDS: CALCIUM CHLORIDE 5.7 GM in NS 1,000 ML IV SCH ×2 (02:35→14:27)
[2016-07-05] MEDS: PROPOFOL/EMULSION 100 ML IV SCH ×2 (02:49→17:55)
--- NOTE | 2016-07-05 03:08 | CPEKG ---
Heart Rate: 62 RR Interval: 968 QRSD Interval: 160 QT Interval: 500 QTC Interval: 508 QRS Ermine: 141 T Wave Ermine: -60 EKG Severity - ABNORMAL ECG - EKG Impression: ATRIAL FIBRILLATION EKG Impression: RIGHT BUNDLE BRANCH BLOCK Electronically Signed By: Jacoby Stewart 05-Jul-2016 07:16:34
[2016-07-05 06:11] LABS: % IMMATURE GRANULYOCYTES 0.5 % (0.0-1.1); ABSOLUTE IMMATURE GRANULOCYTES 0.03 10^3/uL (0.00-0.10); ADD DIFF? NO; ADD MORPH? NO; ADD SCAN? NO; ALBUMIN 3.2 g/dL (3.5-5.0); ANION GAP 15 mEq/L (8-16); ATYPICAL LYMPHOCYTE FLAG 20 (0-99); CALCIUM 8.3 mg/dL (8.5-10.4); CARBON DIOXIDE 19 mEq/l (22-31); CHLORIDE 106 mEq/L (97-110); FRAGMENT RBC FLAG 20 (0-99); GLOMERULAR FILTRATION RATE > 60; GLUCOSE 165 mg/dL (70-100); HEMATOCRIT 26.4 % (40.0-51.0); LEFT SHIFT FLG 0 (0-99); LIPEMIA HEMOLYSIS FLAG 80 (0-99); MAGNESIUM 1.9 mg/dL (1.6-2.3); MEAN CELL HEMOGLOBIN 26.4 pg (27.9-34.1); MEAN CELL HEMOGLOBIN CONCENTR. 30.3 g/dL (32.4-36.7); MEAN CELL VOLUME 87.1 fL (81.5-99.8); MEAN PLATELET VOLUME 10.2 fL (8.7-11.7); PLATELET CLUMPS FLAG 10 (0-99); PLATELET COUNT 190 10^3/uL (150-400); POTASSIUM 3.7 mEq/L (3.5-5.2); RED BLOOD CELL COUNT 3.03 10^6/uL (4.40-6.38); RED CELL DISTRIBUTION WIDTH 17.7 % (11.5-15.2); SODIUM 140 mEq/L (134-144)
[2016-07-05 06:26] LABS: BASE EXCESS -6.4 mEq/L (-2.5-2.5); BICARBONATE 19 mEq/L (22-26); IONIZED CALCIUM 1.18 MMOL/L (1.12-1.30); MEASURED OXYGEN SATURATION 98 % (92-95); PCO2 43 mmHg (34-38); PO2 117 mmHg (65-75); TCO2 21 mEq/L (23-27)
[2016-07-05 06:27] LABS: CPAP YES; END TIDAL CO2 44; O2 CONCENTRATIION 40 % (0-100); P/F RATIO 293 RATIO; PATIENT RATE 13
[2016-07-05 06:28] LABS: PRESSURE SUPPORT 7
[2016-07-05] MEDS: POTASSIUM Cl (KCl) 100 ML IV PRN ×2 (06:40→08:40)
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
[2016-07-05] MEDS: ERTAPENEM 0.5 GM in NS 50 ML IV SCH (08:11)
[2016-07-05] MEDS: fentaNYL/NACL 100 ML IV SCH (08:13)
[2016-07-05] MEDS: OSELTAMIVIR 6 MG/ML UDSYR PO SCH (08:13)
[2016-07-05] MEDS: CHLORHEXIDINE GLUCONATE 15 ML UDL PO SCH ×2 (08:17→20:35)
[2016-07-05] MEDS: PANTOPRAZOLE SODIUM 40 MG in NS 100 ML IV SCH (08:40)
--- NOTE | 2016-07-05 09:00 | DX ---
Portable Chest, 422 a.m. History: Follow-up pneumonia Comparison: July 03 Findings: The patient's ET tube remains above the chin. An NG tube remains in place with tip in the abdomen not shown on this film. A left jugular venous catheter remains in place with tip at the junc tion of the superior vena cava and the innominate vein. Inspiratory phase is somewhat less making it difficult to quantify the importance of bilateral increased pulmonary density. A skinfold overlies th e right lateral chest. There is no pneumothorax or costophrenic gutter blunting. Impression: Persistent bilateral pneumonia. Difficult to determine change due to the decreased inspir atory phase on today's exam.
[2016-07-05] MEDS: INSULIN LISPRO 100 UNIT/ML SC SCH ×3 (09:31→17:55)
--- NOTE | 2016-07-05 10:15 | SOAPPROG ---
SOAP Progress Note Assessment/Plan: Assessment/Plan: ESRD: pt has regular HD, currently in ICU with shock requiring pressor support. - Will continue CRRT for now. - Whenever CRRT goes down tonight, will plan to hold and try to resume intermittent HD tomorrow if able. - Fluid removal at 50ml/hr currently. - Using citrate for anticoagulation. Acidosis: modulating with CRRT and ventilator. Shock: pt remains on pressors although weaning down, on abx for likely sepsis. Subjective: No acute events overnight. Pt remains on 2 of Levophed, have been pulling 100ml /hr overnight on CRRT with no issues. Pt is a bit more awake today, did a weaning trial. Objective: Vital Signs Temp Pulse Resp BP Pulse Ox 36 C 56 L 12 117/55 L 100 07/05/16 10:00 07/05/16 10:00 07/05/16 10:00 07/05/16 10:00 07/05/16 10:00 Microbiology 07/02/16 07:05 - Final Sputum, Induced/Suctioned Sputum Culture - Final Odette [facility]icans Laboratory Results 07/05/16 05:50 07/05/16 05:50 07/04/16 07/05/16 07/06/16 05:59 05:59 05:59 Output Total 832 2129 Balance -832 -2129 PT 16.8 SEC (12.0-15.0) H 07/05/16 00:00 INR 1.36 (0.83-1.16) H 07/05/16 00:00 General: awake, alert, no acute distress Eyes; EOMI, pERRL OP: intubated CV: RRR Resp: intubated and on vent Abd; Soft, NT/ND Ext: no edema all extremities Neuro: CN II-XII grossly intact Access: femoral temp cath, LUE AVF with thrill and bruit appreciated ICD10 Worksheet Patient Problems: Problems Problem Status Diagnosed Palliative care encounter Acute Respiratory failure Acute Sepsis Acute
[2016-07-05 11:58] LABS: IONIZED CALCIUM 1.16 MMOL/L (1.12-1.30); PCO2 VENOUS 43 mmHg (40-44); PH VENOUS BLOOD 7.29 (7.31-7.42); PO2 VENOUS 56 mmHg (35-40); TCO2 VENOUS 21 mEq/L (23-27); VEN MEASURED OXYGEN SATURATION 86 % (65-75)
[2016-07-05 12:08] LABS: INR 1.3 (0.83-1.16); PROTIME(PATIENT) 16.2 SEC (12.0-15.0)
[2016-07-05 12:23] LABS: ALBUMIN 3.2 g/dL (3.5-5.0); ANION GAP 14 mEq/L (8-16); CALCIUM 8.4 mg/dL (8.5-10.4); CARBON DIOXIDE 21 mEq/l (22-31); CHLORIDE 106 mEq/L (97-110); CREATININE 0.9 mg/dL (0.7-1.3); GLOMERULAR FILTRATION RATE > 60; GLUCOSE 157 mg/dL (70-100); MAGNESIUM 1.8 mg/dL (1.6-2.3); POTASSIUM 3.9 mEq/L (3.5-5.2); SODIUM 141 mEq/L (134-144)
--- NOTE | 2016-07-05 13:54 | HOSPPROG ---
Hospitalist Progress Note Assessment/Plan: 61 yo M with hx of ESRD, as well as prior CVA, CAD and a fib presenting with septic shock in setting of influenza # septic shock: in setting of influenza with likely superimposed bacterial infection as well. Still on levophed, but weaning off as we are able. ID following. Continued on ertapenem, vanco, tamiflu. Sputum and urine growing odette, unclear significance. # acute on chronic respiratory failure: at baseline on 3L of o2, currently intubated in setting of PNA, as well as pulmonary edema. RV severely dilated and other consideration would be for PE, no DVT on US though limited study. Pulmonary involved, continue current mgmt for now. Has been doing well with cpap trials. # ESRD: patient anuric, on CVVHD for now but plan to transition to HD in am, renal following # sternal osteomyelitis: likely subacute or chronic and not primary etiology for sepsis. Gen surg involved with plans for likely surgical debridement in coming days # acute on chronic systolic/right sided heart failure: with EF mildly low at 45 % and e/o pulmonary edema as above, beginning to remove fluid now that bp stabilizing and plan for HD tomorrow as above # NSTEMI: with trop peaking at 2 and likely related to supply/demand mismatch in setting of sepsis/shock # h/o ESBL klebsiella PNA/ hx of MV/AV endocarditis, hx of CVA # code status: DNR, intubation ok. Sister Aditya is MDPOA Care plan reviewed with Dr. Leung and multidisciplinary care team. Subjective: no significant overnight events, patient remains intubated and sedated but otherwise no change in status Objective: Vital Signs Temp Pulse Resp BP Pulse Ox 36 C 70 14 114/54 L 100 07/05/16 12:00 07/05/16 13:00 07/05/16 13:00 07/05/16 13:00 07/05/16 13:00 Microbiology 07/02/16 07:05 - Final Sputum, Induced/Suctioned Sputum Culture - Final Odette [facility]icans Laboratory Results 07/05/16 05:50 07/05/16 11:50 07/04/16 07/05/16 07/06/16 05:59 05:59 05:59 Output Total 832 2125 Balance -832 -2129 PT 16.2 SEC (12.0-15.0) H 07/05/16 11:50 INR 1.30 (0.83-1.16) H 07/05/16 11:50 intubated sedated anicteric ett in place rrr systolic murmur bronchial breath sounds, dec at bases soft nt nd no cce warm dry well perfused sedated ICD10 Worksheet Patient Problems: Problems Problem Status Diagnosed Palliative care encounter Acute Respiratory failure Acute Sepsis Acute
--- NOTE | 2016-07-05 14:28 | PCMIDPN ---
Assessment/Plan: Assessment/Plan: 1. Bilateral pneumonia with Influenza and possible secondary bacterial pneumonia ; - On empiric antibiotics with vanco, invanz along with Tamiflu. Dosing based on CRRT -Vanco trough this Am at 10.1. -wbc stable. -droplet precautions. -Continue current care for now. 2. Hx CRE:- - continue contact isolation. Meds vanco 750mg q48- invanz 500mg daily tamiflu 30mg daily Subjective: Afebrile. INtubated. eyes open to verbal stimuli. On levophed. On CRRT . Objective: Vital Signs Temp Pulse Resp BP Pulse Ox 36 C 56 L 15 114/54 L 100 07/05/16 12:00 07/05/16 13:35 07/05/16 13:35 07/05/16 13:00 07/05/16 13:35 Microbiology 07/02/16 07:05 - Final Sputum, Induced/Suctioned Sputum Culture - Final Odette [facility]icans Laboratory Results 07/05/16 05:50 07/05/16 11:50 07/04/16 07/05/16 07/06/16 05:59 05:59 05:59 Output Total 832 2122 Balance -832 -2129 - Physical Exam General Appearance: other (intubated. eyes open to verbal stimuli) Respiratory: coarse breath sounds Cardiac/Chest: regular rate, rhythm Abdomen: normal bowel sounds, non-tender, soft, No distended ICD10 Worksheet Patient Problems: Problems Problem Status Diagnosed Palliative care encounter Acute Respiratory failure Acute Sepsis Acute
--- NOTE | 2016-07-05 15:26 | SOAPPROG ---
SOAP Progress Note Assessment/Plan: Assessment/plan: 61 Y M c multiple issues including developmental delay, ESRD, MVR, afib, prior CVA, admitted c septic shock. +influenza. +sternal wounds. Groin HD cath placed per Dr. Romo. Cath site clean. Sternal wounds stable. Appreciated palliative care consult. If patient does well and family pursues full care/ aggressive treatment then wound eventually recommend sternal wound debridement and removal of underlying sternal ties. Happy to help with this as needed. 07/05/16 15:23 Objective: Vital Signs Temp Pulse Resp BP Pulse Ox 36 C 56 L 14 107/47 L 100 07/05/16 12:00 07/05/16 15:00 07/05/16 15:00 07/05/16 15:00 07/05/16 15:00 Microbiology 07/02/16 07:05 - Final Sputum, Induced/Suctioned Sputum Culture - Final Odette [facility]icans Laboratory Results 07/05/16 05:50 07/05/16 11:50 07/04/16 07/05/16 07/06/16 05:59 05:59 05:59 Output Total 832 2129 Balance -832 -2129 PT 16.2 SEC (12.0-15.0) H 07/05/16 11:50 INR 1.30 (0.83-1.16) H 07/05/16 11:50 ICD10 Worksheet Patient Problems: Problems Problem Status Diagnosed Palliative care encounter Acute Respiratory failure Acute Sepsis Acute
--- NOTE | 2016-07-05 16:20 | PDINTPN ---
[employer] [facility] [employer] Progress Note Assessment/Plan: Assessment: Sepsis: Continues to have hypotension requiring NE, decreased to 2. Most likely due to Influenza A, although could have superimposed bacterial pneumonia. Had resistant Klebsiella in past. Id aware. On Ertapenam/Vanco/acyclovir. Acute respiratory failure. On the ventilator. Not ready for extubation but we can start CPAP weans. ESRD: On CVVHD, but stopping this today. For hemodialysis starting tomorrow. 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 Sternal wound infection: CT suspicious for sternal osteo, but unlikely to be contributing to the current clinical deterioration. Being seen by surgery and wound care. Once he is better may require surgical exploration. Hx CVA Hx peritonitis. AF: Now NSR Nutrition: On tube feedings, increasing. DVT prophylaxis: Subcu hepari GI prophylaxis: Pantoprazole Plan: Continue mechanical ventilation, sedation/pain control per protocols, antibiotics, pressors as needed, CVVHD. Cont CPAP trials, with consideration of possible extubation tomorrow if he is doing well. Increase tube feedings. Follow laboratory and chest x-ray. ERON Herrera. 45 minutes of critical care time spent directly with the patient. Discussed with nursing, respiratory, Renal, and the ICU multi disciplinary team. Subjective: Sedated lightly, on the ventilator. Looks to voice. Nods appropriately to questions and commands. Objective: Vital Signs Temp Pulse Resp BP Pulse Ox 36.7 C 56 L 13 104/49 L 99 07/05/16 16:00 07/05/16 16:00 07/05/16 16:00 07/05/16 16:00 07/05/16 16:00 Microbiology 07/02/16 07:05 - Final Sputum, Induced/Suctioned Sputum Culture - Final Odette Albicans Laboratory Results 07/05/16 05:50 07/05/16 11:50 07/04/16 07/05/16 07/06/16 05:59 05:59 05:59 Output Total 832 2129 Balance -832 -2129 PT 16.2 SEC (12.0-15.0) H 07/05/16 11:50 INR 1.30 (0.83-1.16) H 07/05/16 11:50 Laboratory Tests 07/05/16 07/05/16 06:15 11:50 pCO2 43 H pO2 117 H ABG pH 7.28 L O2 Concentration % 40 PEEP 5 Pressure Support 7 CPAP YES Calcium 8.4 L Phosphorus 2.7 Magnesium 1.8 Albumin 3.2 L CXR: Bilateral infiltrates persist. Lines and tubes in good position. Physical Exam - Physical Exam General Appearance: mild distress, other (On ventilator) EENT: PERRL/EOMI, ET tube, other (NG tube in place) Neck: normal inspection (No obvious jugular venous distension) Respiratory: decreased breath sounds (Anteriorly), rales (Few at lateral bases) , No normal breath sounds, No respiratory distress, No rhonchi (No significant secretions), No wheezing Cardiac/Chest: bradycardia Abdomen: non-tender, soft, other (Tolerating), No normal bowel sounds (Decreased , present) Male Genitalia: other (Herrera catheter removed. Little urine output) Skin: warm/dry, pallor Lymphatic: no adenopathy Extremities: pedal edema Neuro/Psych: No no motor/sensory deficits (Unchanged neurologic examination with left-sided deficit) ICD10 Worksheet Patient Problems: Problems Problem Status Diagnosed Palliative care encounter Acute Respiratory failure Acute Sepsis Acute
[2016-07-06] MEDS: methylPREDNISolone SOD SUCC 125 MG/2 ML VIAL IVP SCH ×2 (00:37→08:19)
[2016-07-06] MEDS: VANCOMYCIN 750 MG in D5W 150 ML IV SCH (01:50)
[2016-07-06] MEDS: HEPARIN 5,000 UNIT/0.5 ML SYR SC SCH ×3 (01:50→17:01)
[2016-07-06] MEDS: fentaNYL/NACL 100 ML IV SCH (03:31)
[2016-07-06 05:11] LABS: % IMMATURE GRANULYOCYTES 1.1 % (0.0-1.1); ABSOLUTE IMMATURE GRANULOCYTES 0.08 10^3/uL (0.00-0.10); ADD DIFF? NO; ADD MORPH? NO; ADD SCAN? NO; ATYPICAL LYMPHOCYTE FLAG 10 (0-99); FRAGMENT RBC FLAG 20 (0-99); HEMATOCRIT 30.2 % (40.0-51.0); HEMOGLOBIN 9.2 g/dL (13.7-17.5); LEFT SHIFT FLG 0 (0-99); LIPEMIA HEMOLYSIS FLAG 80 (0-99); MEAN CELL HEMOGLOBIN 26.6 pg (27.9-34.1); MEAN CELL HEMOGLOBIN CONCENTR. 30.5 g/dL (32.4-36.7); MEAN CELL VOLUME 87.3 fL (81.5-99.8); MEAN PLATELET VOLUME 9.8 fL (8.7-11.7); PLATELET CLUMPS FLAG 0 (0-99); PLATELET COUNT 221 10^3/uL (150-400); RED BLOOD CELL COUNT 3.46 10^6/uL (4.40-6.38); RED CELL DISTRIBUTION WIDTH 17.2 % (11.5-15.2)
[2016-07-06 06:03] LABS: ALANINE AMINOTRANSFERASE 33 IU/L (21-72); ALBUMIN 3.2 g/dL (3.5-5.0); ALKALINE PHOSPHATASE 85 IU/L (38-126); ANION GAP 12 mEq/L (8-16); ASPARTATE AMINOTRANSFERASE 18 IU/L (17-59); BILIRUBIN,TOTAL 0.8 mg/dL (0.1-1.4); CALCIUM 8.7 mg/dL (8.5-10.4); CARBON DIOXIDE 23 mEq/l (22-31); CHLORIDE 105 mEq/L (97-110); CREATININE 1.4 mg/dL (0.7-1.3); GLOMERULAR FILTRATION RATE 52; GLUCOSE 224 mg/dL (70-100); POTASSIUM 4.2 mEq/L (3.5-5.2); SODIUM 140 mEq/L (134-144); TOTAL PROTEIN 5.6 g/dL (6.3-8.2)
[2016-07-06 06:33] LABS: BASE EXCESS -5.9 mEq/L (-2.5-2.5); BICARBONATE 20 mEq/L (22-26); CPAP YES; MEASURED OXYGEN SATURATION 98 % (92-95); PCO2 48 mmHg (34-38); PO2 122 mmHg (65-75); TCO2 22 mEq/L (23-27)
[2016-07-06 06:34] LABS: END TIDAL CO2 48; O2 CONCENTRATIION 40 % (0-100); P/F RATIO 305 RATIO; PATIENT RATE 13; PRESSURE SUPPORT 7
[2016-07-06] MEDS: INSULIN LISPRO 100 UNIT/ML SC SCH ×3 (08:18→17:09)
[2016-07-06] MEDS: CHLORHEXIDINE GLUCONATE 15 ML UDL PO SCH ×2 (08:19→20:42)
--- NOTE | 2016-07-06 08:43 | DX ---
Portable AP Upright Chest July 06, 2016, at 6:07 a.m. Clinical History: 61-year-old male in the ICU for follow up of respiratory status. Comparison Study: Chest, dated July 05, 2016, at 4:22 a.m. Findings: There is stable positioning of the interventional and monitoring devices. The cardiac silho uette remains enlarged, and there is pulmonary vascular congestion. There are mild hypoventilatory ch anges. There is persistent left retrocardiac consolidation. Impression: Radiographically unchanged.
--- NOTE | 2016-07-06 08:52 | PCMIDPN ---
Assessment/Plan: # Sepsis secondary to influenza PNA, possible superimposed CAP. General improvement with minimal pressor requirements, improving O2 requirement and no fever. Chest x-ray personally reviewed by me and shows to persistent diffuse infiltrates --dc vancomycin as no microbiologic data to indicate MRSA or Enterococcus --continue renal dose ertapenem 500 mg daily, day # 5 of 7 --continue droplet precaution # H/o ESBL: Contact isolation # Chr Sternal OM: Debridement when stabilized # ESRD : Changed from CVVHD to standard hemodialysis, will plan to remove femoral catheter # Hx MR endocarditis with subsequent MVR September 2015: MAYE didn't show any vegetations and blood cultures 2/ are negative to date # Odette in sputum and urine culture consistent with colonization Microbiology / Blood cultures (2): NGTD 07/02 sputum cultures: Odette / urine culture: 50 K Odette Subjective: Patient remains on a small amount of pressor support when on hemodialysis Objective: Vital Signs Temp Pulse Resp BP Pulse Ox 36.6 C 58 L 16 100/52 L 100 07/06/16 08:00 07/06/16 08:35 07/06/16 08:35 07/06/16 08:23 07/06/16 08:35 Laboratory Results 07/06/16 04:48 07/06/16 04:48 07/05/16 07/06/16 07/07/16 05:59 05:59 05:59 Intake Total 843 Output Total 2129 782 Balance -2129 61 - Physical Exam General Appearance: cachetic, other (Per nursing report when sedation lifted patient following commands appropriately) EENT: ET Tube, NG Tube Neck: supple Cardiac/Chest: bradycardia, other (Midline sternotomy scar with several wounds, no purulent drainage or erythema) Extremities: No pedal edema Abdomen: normal bowel sounds, non-tender, distended Male Genitalia: pabon, No scrotal edema Skin: No rash - Line/s other Lines: other (Left TLC in IJ position C/D/I; right hemodialysis catheter in femoral position C/D/I), No drainage, No erythema ICD10 Worksheet Patient Problems: Problems Problem Status Diagnosed Palliative care encounter Acute Respiratory failure Acute Sepsis Acute
[2016-07-06] MEDS: PROPOFOL/EMULSION 100 ML IV SCH (09:08)
--- NOTE | 2016-07-06 09:18 | SOAPPROG ---
SOAP Progress Note Assessment/Plan: Assessment: 1. ESRD. Transition to HD today. Will plan on next HD Monday unless urgent needs arise. 2. Sepsis. Probably due to influenza. Blood cultures negative thus far. + amber in sputum. Continue broad spectrum abx. Wean levophed. 3. Sternal wound infection. Further eval once patient recovers. Plan: 07/06/16 09:15 Subjective: CRRT stopped last night. Now seen and examined on hemodialysis. Remains on levophed. Objective: Vital Signs Temp Pulse Resp BP Pulse Ox 36.6 C 58 L 16 100/52 L 100 07/06/16 08:00 07/06/16 08:35 07/06/16 08:35 07/06/16 08:23 07/06/16 08:35 Laboratory Results 07/06/16 04:48 07/06/16 04:48 07/05/16 07/06/16 07/07/16 05:59 05:59 05:59 Intake Total 843 Output Total 2129 782 Balance -2129 61 PT 16.2 SEC (12.0-15.0) H 07/05/16 11:50 INR 1.30 (0.83-1.16) H 07/05/16 11:50 Intubated, cachectic, sedated, arouses to voice RRR, no m/g/r CTAB Abdom soft, nt Trace sacral edema R fem dialysis catheter ICD10 Worksheet Patient Problems: Problems Problem Status Diagnosed Palliative care encounter Acute Respiratory failure Acute Sepsis Acute
--- NOTE | 2016-07-06 10:35 | SOAPPROG ---
SOAP Progress Note Assessment/Plan: Assessment: 61yo male with multiple medical problems admitted with sepsis, seen recently in our office for sternal wound, s/p right groin dialysis catheter placement PE intubated chest 3 sternal wounds, no active drainage or surrounding erythema abdomen distended, very soft to palpation right groin catheter in place, no surrounding erythema Plan: surgery for sternal wound when overall condition improves 07/04/16 09:42 07/06/16 10:34 Objective: Vital Signs Temp Pulse Resp BP Pulse Ox 36.6 C 62 12 134/51 H 100 07/06/16 08:00 07/06/16 10:00 07/06/16 10:00 07/06/16 10:00 07/06/16 10:00 Laboratory Results 07/06/16 04:48 07/06/16 04:48 07/05/16 07/06/16 07/07/16 05:59 05:59 05:59 Intake Total 843 Output Total 2121 782 Balance -2129 61 PT 16.2 SEC (12.0-15.0) H 07/05/16 11:50 INR 1.30 (0.83-1.16) H 07/05/16 11:50 ICD10 Worksheet Patient Problems: Problems Problem Status Diagnosed Palliative care encounter Acute Respiratory failure Acute Sepsis Acute
[2016-07-06] MEDS: ERTAPENEM 0.5 GM in NS 50 ML IV SCH (10:38)
[2016-07-06] MEDS: METOCLOPRAMIDE 10 MG/2 ML VIAL IVP SCH ×2 (10:39→17:01)
[2016-07-06] MEDS: LANSOPRAZOLE SUSP 30MG/10ML UDSYR (Adult) TUBE SCH (10:51)
[2016-07-06] MEDS: OSELTAMIVIR 6 MG/ML UDSYR PO SCH (11:42)
--- NOTE | 2016-07-06 11:42 | WOCRNPDOC ---
WOCRN Advanced Assessment Note - Skin Integrity Problem, Advanced Assess Medial Sternal Surgical Wound/Incision Dressing Type: Allevyn Life, Hydrofera Blue Ready Dressing Description: Clean/Dry, Intact Integumentary Issue Intervention: Visualized Under Dressing Wound Bed Color: Black (middle wound), Red Wound Bed Constitution: Granulation Tissue, Smooth Tissue Skin Integrity Problem Comment: Proximal and distal wounds unchanged. Middle wound dry. Will round again on Tuesday 07/11.
[2016-07-06 13:41] LABS: HEPATITIS Bs Ab QUANT <5.0 mIU/mL (())
--- NOTE | 2016-07-06 15:43 | HOSPPROG ---
Hospitalist Progress Note Assessment/Plan: 61 yo M with hx of ESRD, as well as prior CVA, CAD and a fib presenting with septic shock in setting of influenza # septic shock: in setting of influenza with likely superimposed bacterial infection as well. Improving. Continued on ertapenem, but dc vanco given no cultures to suggest it's needed. Complete 7 days of tamiflu. # acute on chronic respiratory failure: at baseline on 3L of o2, currently intubated in setting of PNA, as well as pulmonary edema. Has been doing well with cpap trials. Will need to dw family if patient to be reintubated if he fails extubation. # ESRD: renal following, on chronic hd # sternal osteomyelitis: likely subacute or chronic and not primary etiology for sepsis. Gen surg involved with plans for likely surgical debridement in coming days when stable from above. # acute on chronic systolic/right sided heart failure: with EF mildly low at 45 % and e/o pulmonary edema as above, HD as tolerated for fluid removal # NSTEMI: with trop peaking at 2 and likely related to supply/demand mismatch in setting of sepsis/shock # h/o ESBL klebsiella PNA/ hx of MV/AV endocarditis, hx of CVA # code status: DNR, intubation ok. Sister Aditya is MDPOA Care plan reviewed with Dr. Leung and multidisciplinary care team. Subjective: no significant overnight events, patient remains intubated but alert Objective: Vital Signs Temp Pulse Resp BP Pulse Ox 37.0 C 73 20 104/51 L 100 07/06/16 12:00 07/06/16 15:00 07/06/16 15:00 07/06/16 15:00 07/06/16 15:00 Laboratory Results 07/06/16 04:48 07/06/16 04:48 07/05/16 07/06/16 07/07/16 05:59 05:59 05:59 Intake Total 843 Output Total 9 782 Balance -9 61 PT 16.2 SEC (12.0-15.0) H 07/05/16 11:50 INR 1.30 (0.83-1.16) H 07/05/16 11:50 intubated alert nad anicteric ett in place rrr systolic murmur bronchial breath sounds, dec at bases soft nt nd no cce warm dry well perfused alert ICD10 Worksheet Patient Problems: Problems Problem Status Diagnosed Palliative care encounter Acute Respiratory failure Acute Sepsis Acute
--- NOTE | 2016-07-06 16:15 | PDINTPN ---
Soft Sugar Supervisor Progress Note Assessment/Plan: Assessment: Sepsis: Continues to have hypotension requiring NE, at 2. Most likely due to Influenza A, although could have superimposed bacterial pneumonia. Had resistant Klebsiella in past. Id following. On Ertapenam/Vanco/acyclovir. Acute respiratory failure. Improved, did fairly well on CPAP wean. Still acidotic primarily secondary to metabolic acidosis secondary to renal disease. Status post hemodialysis today. Extubated afterwards. ESRD: Hemodialysis with 1 L fluid removal today. 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 Sternal wound infection: CT suspicious for sternal osteo, but unlikely to be contributing to the current clinical deterioration. Being seen by surgery and wound care. Once he is better may require surgical exploration. Hx CVA Hx peritonitis. AF: Now NSR Nutrition: On tube feedings, increasing. DVT prophylaxis: Subcu hepari GI prophylaxis: Pantoprazole Advance directives. This was discussed again at length with the patient's sister. She clearly desires him to be limited resuscitation and feels that re- intubation if needed would be appropriate, cardiac medications are appropriate and defibrillation if needed would be appropriate. She does not want cardiac compressions. Plan: Continue supportive care in the intensive care unit. Follow blood gas and x-ray. Continue bronchodilator therapy. Continue tube feedings. Follow laboratory and chest x-ray. Pain control as needed. Encourage deep breathing, coughing. Changes advanced directives as outlined above. 55 minutes of critical care time spent directly with the patient. Discussed with patient's sister, nursing, respiratory, and the ICU multi disciplinary team. Subjective: Comfortable on the ventilator. Extubated after hemodialysis. Doing well. Talking, communicative. Objective: Vital Signs Temp Pulse Resp BP Pulse Ox 37.0 C 73 20 104/51 L 100 07/06/16 12:00 07/06/16 15:00 07/06/16 15:00 07/06/16 15:00 07/06/16 15:00 Laboratory Results 07/06/16 04:48 07/06/16 04:48 07/05/16 07/06/16 07/07/16 05:59 05:59 05:59 Intake Total 843 Output Total 9 782 Balance -9 61 PT 16.2 SEC (12.0-15.0) H 07/05/16 11:50 INR 1.30 (0.83-1.16) H 07/05/16 11:50 Laboratory Tests 07/06/16 07/06/16 04:48 06:20 pCO2 48 H pO2 122 H Total CO2 22 L ABG pH 7.25 L O2 Concentration % 40 Actual Respiration Rate 13 CPAP YES Albumin 3.2 L CXR: About the same to slightly better taking into account smaller lung volumes today. Physical Exam - Physical Exam General Appearance: other (Mildly sedated initially, but arousable, responsive and appropriate.) EENT: anisocoria, ET tube (Removed), other (NG tube in place) Neck: normal inspection Respiratory: lungs clear (Anteriorly), decreased breath sounds (At bases), rales (Few rales at bases), No rhonchi (Minimal secretions) Cardiac/Chest: regular rate, rhythm Abdomen: normal bowel sounds, non-tender, soft Skin: warm/dry, pallor Extremities: pedal edema Neuro/Psych: No no motor/sensory deficits (Status post left-sided stroke, no changes.), No cognition abnormalities (Appears to be close to baseline) ICD10 Worksheet Patient Problems: Problems Problem Status Diagnosed Palliative care encounter Acute Respiratory failure Acute Sepsis Acute
[2016-07-06] MEDS: OSELTAMIVIR 6 MG/ML UDSYR TUBE SCH (17:01)
--- NOTE | 2016-07-06 18:18 | DX ---
KUB, single view. History: Feeding tube placement. Findings: Feeding tube extends to the distal stomach. Bowel gas pattern is normal. Prosthetic aortic valve noted. Impression: Feeding tube extends to the distal stomach.
[2016-07-06] MEDS: methylPREDNISolone SOD SUCC 40 MG/ML VIAL IVP SCH (20:42)
[2016-07-06] MEDS ORDERED: methylPREDNISolone SOD SUCC 125 MG/2 ML VIAL IVP SCH (21:00)
[2016-07-07] MEDS: METOCLOPRAMIDE 10 MG/2 ML VIAL IVP SCH ×4 (00:05→17:56)
[2016-07-07] MEDS: NOREPINEPHRINE BITARTRATE 16 MG in NS 250 ML IV SCH (00:30)
[2016-07-07] MEDS: HEPARIN 5,000 UNIT/0.5 ML SYR SC SCH ×3 (01:40→17:57)
[2016-07-07 05:42] LABS: ADD DIFF? YES; ADD MORPH? NO; ADD SCAN? NO; ATYPICAL LYMPHOCYTE FLAG 20 (0-99); FRAGMENT RBC FLAG 20 (0-99); HEMATOCRIT 28.8 % (40.0-51.0); HEMOGLOBIN 9.1 g/dL (13.7-17.5); LEFT SHIFT FLG 20 (0-99); LIPEMIA HEMOLYSIS FLAG 80 (0-99); MEAN CELL HEMOGLOBIN 27.1 pg (27.9-34.1); MEAN CELL HEMOGLOBIN CONCENTR. 31.6 g/dL (32.4-36.7); MEAN CELL VOLUME 85.7 fL (81.5-99.8); MEAN PLATELET VOLUME 9.6 fL (8.7-11.7); PLATELET CLUMPS FLAG 0 (0-99); PLATELET COUNT 191 10^3/uL (150-400); RED BLOOD CELL COUNT 3.36 10^6/uL (4.40-6.38)
[2016-07-07 05:59] LABS: ALANINE AMINOTRANSFERASE 32 IU/L (21-72); ALBUMIN 3.2 g/dL (3.5-5.0); ALKALINE PHOSPHATASE 80 IU/L (38-126); ANION GAP 11 mEq/L (8-16); ASPARTATE AMINOTRANSFERASE 17 IU/L (17-59); BILIRUBIN,TOTAL 0.8 mg/dL (0.1-1.4); CALCIUM 8.9 mg/dL (8.5-10.4); CARBON DIOXIDE 22 mEq/l (22-31); CHLORIDE 105 mEq/L (97-110); CREATININE 1.8 mg/dL (0.7-1.3); GLOMERULAR FILTRATION RATE 39; GLUCOSE 246 mg/dL (70-100); MAGNESIUM 1.8 mg/dL (1.6-2.3); POTASSIUM 4.3 mEq/L (3.5-5.2); SODIUM 138 mEq/L (134-144); TOTAL PROTEIN 5.6 g/dL (6.3-8.2)
[2016-07-07 06:13] LABS: ACANTHOCYTES 1+; ELLIPTOCYTES 1+; MICROCYTES 2+; PLATELET ESTIMATE ADEQUATE (ADEQ)
[2016-07-07] MEDS: CHLORHEXIDINE GLUCONATE 15 ML UDL PO SCH ×2 (07:13→21:17)
[2016-07-07] MEDS: INSULIN LISPRO 100 UNIT/ML SC SCH ×3 (07:50→18:07)
[2016-07-07] MEDS: LANSOPRAZOLE SUSP 30MG/10ML UDSYR (Adult) TUBE SCH (07:51)
[2016-07-07] MEDS: methylPREDNISolone SOD SUCC 40 MG/ML VIAL IVP SCH (08:00)
--- NOTE | 2016-07-07 08:00 | DX ---
Portable Chest, 6:07 AM History: Follow-up respiratory distress, pneumonia Comparison: Yesterday Findings: The patient has been extubated. A left jugular venous catheter is in place with tip in the superior vena cava. An NG tube remains in place tip not included on this exam. There is improving lef t basilar consolidation. Diffuse bilateral infiltrate remains. The left costophrenic gutter is newly indistinct. Median sternotomy wires CABG clips and a valve replacement remain overlying the enlarged heart. Impression: Improvement. Possible new small left pleural effusion.
--- NOTE | 2016-07-07 09:06 | PCMIDPN ---
Assessment/Plan: # Sepsis secondary to influenza PNA, possible superimposed CAP. General improvement with minimal pressor requirements, improving O2 requirement and no fever. Chest x-ray personally reviewed by me which shows improvement in infiltrates --continue renal dose ertapenem 500 mg daily, day # 6 of 7, discontinue ertapenem tomorrow after dose --continue droplet precaution --Tamiflu # 6 of 7, discontinue tomorrow # H/o ESBL: Contact isolation # Chr Sternal OM: Debridement when stabilized # ESRD : Dose antibiotics for dialysis. # Hx MR endocarditis with subsequent MVR September 2015: MAYE didn't show any vegetations and blood cultures 2/4 are negative to date # Odette in sputum and urine culture consistent with colonization Microbiology / Blood cultures (2): Neg / sputum cultures: Odette / urine culture: 50 K Odette Subjective: Patient was extubated yesterday. Remains afebrile. No diarrhea. Denies complaints of pain. Patient acknowledges chronic sternotomy infection. Still on low-dose Levophed Objective: Vital Signs Temp Pulse Resp BP Pulse Ox 36.8 C 71 17 129/72 H 100 07/07/16 07:49 07/07/16 07:49 07/07/16 07:49 07/07/16 07:49 07/07/16 07:49 Laboratory Results 07/07/16 05:05 07/07/16 05:05 07/06/16 07/07/16 07/08/16 05:59 05:59 05:59 Intake Total 843 1225 Output Total 782 Balance 61 1225 - Physical Exam General Appearance: alert, other (Chronic ill appearance, no distress) EENT: pale conjunctiva Respiratory: coarse breath sounds (Shallow inspiratory effort), No accessory muscle use Neck: supple Extremities: other (LUE AVF) Abdomen: normal bowel sounds, non-tender, soft Skin: pallor, No rash Neuro/Psych: alert, facial droop, motor weakness (Left sandy paresis), other ( Following commands appropriately) ICD10 Worksheet Patient Problems: Problems Problem Status Diagnosed Palliative care encounter Acute Respiratory failure Acute Sepsis Acute
--- NOTE | 2016-07-07 09:07 | PDINTPN ---
Equipment Operating Engineer Progress Note Assessment/Plan: Assessment: Sepsis: Resolved. Continues to have hypotension requiring NE, at 2. Most likely due to Influenza A, although could have superimposed bacterial pneumonia. Had resistant Klebsiella in past. Id following. On Ertapenam/Vanco /acyclovir. He may run somewhat low blood pressures in general. Perhaps norepinephrine could be discontinued if systolic pressures remain 90 or above, maps above 55. Acute respiratory failure. Resolved, doing well since extubation. Chest x-ray improving. ESRD: On hemodialysis 3 times per week. 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 Sternal wound infection: CT suspicious for sternal osteo, but unlikely to be contributing to the current clinical deterioration. Being seen by surgery and wound care. Once he is better may require surgical exploration. Hx CVA Hx peritonitis. AF: Now NSR, but with significant ectopy Nutrition: On tube feedings, increasing. DVT prophylaxis: Subcu hepari GI prophylaxis: Pantoprazole Advance directives. Limited resuscitation per the patient and his sister's wishes: To include intubation if needed, cardiac drugs, defibrillation. No compressions. Plan: Continue supportive care in the intensive care unit. Will try weaning norepinephrine to off and see what blood pressure does. Follow lab and x-ray. Continue bronchodilator therapy. Continue tube feedings. Pain control as needed. Encourage deep breathing, coughing. Changes advanced directives as outlined above. 40 minutes of critical care time spent directly with the patient. Discussed nursing, respiratory, and the ICU multi disciplinary team. We will talk more with the patient's sister later today when she comes in. Subjective: Stable since extubation. Awake and alert. Hard to vocalize but responds appropriately, gives a thumbs up. Denies significant shortness of breath. Denies pain. Remains on low-dose Levophed Objective: Vital Signs Temp Pulse Resp BP Pulse Ox 36.8 C 71 17 129/72 H 100 07/07/16 07:49 07/07/16 07:49 07/07/16 07:49 07/07/16 07:49 07/07/16 07:49 Laboratory Results 07/07/16 05:05 07/07/16 05:05 07/06/16 07/07/16 07/08/16 05:59 05:59 05:59 Intake Total 843 1225 Output Total 782 Balance 61 1225 PT 16.2 SEC (12.0-15.0) H 07/05/16 11:50 INR 1.30 (0.83-1.16) H 07/05/16 11:50 Laboratory Tests 07/07/16 05:05 Calcium 8.9 Phosphorus 3.1 Magnesium 1.8 Total Bilirubin 0.8 AST 17 ALT 32 Albumin 3.2 L CXR: Improving bilateral infiltrates. Physical Exam - Physical Exam General Appearance: alert, no apparent distress, other (On low-dose Levophed) EENT: other (Nasal cannula at 3 L, 100% saturation) Neck: normal inspection (No JVD) Respiratory: lungs clear (Peripherally), decreased breath sounds (Bilaterally), rales (Few at the bases), rhonchi (In hypopharynx or upper trachea) Cardiac/Chest: regular rate, rhythm, extra beats (Both ventricular and supraventricular beats) Abdomen: normal bowel sounds, non-tender, soft, other (NG tube in place, tolerating tube feeding) Male Genitalia: other (No Herrera catheter) Skin: warm/dry, pallor Lymphatic: no adenopathy Extremities: No pedal edema Neuro/Psych: No no motor/sensory deficits (Left-sided deficits without change), No cognition abnormalities ICD10 Worksheet Patient Problems: Problems Problem Status Diagnosed Palliative care encounter Acute Respiratory failure Acute Sepsis Acute
--- NOTE | 2016-07-07 09:59 | SOAPPROG ---
SOAP Progress Note Assessment/Plan: Assessment:Plan: ESRD-MWF [facility] [phone] -next dialysis Monday Access-stable LUE AVF Sternal wound infection-per surgery and infectious disease Influenza-getting better CV-trying to wean last bit of pressors -can titrate to SBP > 90 07/07/16 09:56 Subjective: awake, still on low dose levophed Objective: Vital Signs Temp Pulse Resp BP Pulse Ox 36.8 C 74 24 H 108/48 L 99 07/07/16 07:49 07/07/16 09:00 07/07/16 09:00 07/07/16 09:00 07/07/16 09:00 Laboratory Results 07/07/16 05:05 07/07/16 05:05 07/06/16 07/07/16 07/08/16 05:59 05:59 05:59 Intake Total 843 1225 Output Total 782 Balance 61 1225 PT 16.2 SEC (12.0-15.0) H 07/05/16 11:50 INR 1.30 (0.83-1.16) H 07/05/16 11:50 Physical Exam - Physical Exam General Appearance: alert, mild distress EENT: normal ENT inspection Neck: normal inspection Respiratory: lungs clear, normal breath sounds, No respiratory distress Cardiac/Chest: regular rate, rhythm, systolic murmur Abdomen: normal bowel sounds, non-tender, soft Extremities: other (AVF patent), No swelling ICD10 Worksheet Patient Problems: Problems Problem Status Diagnosed Palliative care encounter Acute Respiratory failure Acute Sepsis Acute
[2016-07-07] MEDS: ERTAPENEM 0.5 GM in NS 50 ML IV SCH (15:02)
--- NOTE | 2016-07-07 15:38 | HOSPPROG ---
Hospitalist Progress Note Assessment/Plan: 61 yo M with hx of ESRD, as well as prior CVA, CAD and a fib presenting with septic shock in setting of influenza # septic shock: in setting of influenza with likely superimposed bacterial infection as well. Improving. Complete 7 days of tamiflu and continue ertapenem. # acute on chronic respiratory failure: at baseline on 3L of o2, now extubated and doing well on baseline o2 need # ESRD: renal following, on chronic hd # sternal osteomyelitis: likely subacute or chronic and not primary etiology for sepsis. Gen surg involved with plans for likely surgical debridement in coming days when stable from above. # acute on chronic systolic/right sided heart failure: with EF mildly low at 45 % and e/o pulmonary edema as above, HD as tolerated for fluid removal # NSTEMI: with trop peaking at 2 and likely related to supply/demand mismatch in setting of sepsis/shock # h/o ESBL klebsiella PNA/ hx of MV/AV endocarditis, hx of CVA with residual left sided deficits # code status: DNR, intubation ok. Sister Aditya is MDPOA Care plan reviewed with Dr. Leung and multidisciplinary care team. Subjective: no significant overnight events, patient now extubated and doing well Objective: Vital Signs Temp Pulse Resp BP Pulse Ox 37.0 C 84 22 H 110/52 L 100 07/07/16 12:00 07/07/16 15:00 07/07/16 15:00 07/07/16 15:00 07/07/16 15:00 Laboratory Results 07/07/16 05:05 07/07/16 05:05 07/06/16 07/07/16 07/08/16 05:59 05:59 05:59 Intake Total 843 1225 Output Total 782 Balance 61 1225 PT 16.2 SEC (12.0-15.0) H 07/05/16 11:50 INR 1.30 (0.83-1.16) H 07/05/16 11:50 awake alert nad anicteric op clear, ng tube rrr systolic murmur bronchial breath sounds, dec at bases soft nt nd no cce warm dry well perfused non verbal but following commands ICD10 Worksheet Patient Problems: Problems Problem Status Diagnosed Palliative care encounter Acute Respiratory failure Acute Sepsis Acute
--- NOTE | 2016-07-07 16:10 | DX ---
Portable AP chest. 07/07/2016 at 1525 History: RESP FAILURE Comparison study: July 07, 2016 Findings: Diminished lung volumes are present, associated with diffuse interstitial thickening sugges tive of pulmonary edema. Moderate cardiac enlargement post CABG and aortic valve replacement. Lines a nd tubes are unchanged. Impression: Diminished lung volumes with diffuse interstitial pulmonary edema.
--- NOTE | 2016-07-07 16:12 | DX ---
Abdominal radiograph, single view. History: Feeding tube repositioning. Comparison Study: July 06, 2016. Findings: NG tube is located at the mid to distal stomach similar to prior study. Bowel gas pattern is unremarkable as visualized. Prior cardiac surgery. Impression: 1. Stable NG tube positioning.
[2016-07-07] MEDS: OSELTAMIVIR 6 MG/ML UDSYR TUBE SCH (17:56)
[2016-07-07] MEDS ORDERED: OSELTAMIVIR 6 MG/ML UDSYR PO SCH (18:00)
[2016-07-08] MEDS: METOCLOPRAMIDE 10 MG/2 ML VIAL IVP SCH ×4 (01:13→18:37)
[2016-07-08] MEDS: HEPARIN 5,000 UNIT/0.5 ML SYR SC SCH ×3 (01:13→18:36)
[2016-07-08] MEDS: NOREPINEPHRINE BITARTRATE 16 MG in NS 250 ML IV SCH (04:51)
[2016-07-08] MEDS: CHLORHEXIDINE GLUCONATE 15 ML UDL PO SCH (08:00)
[2016-07-08 08:19] LABS: BASE EXCESS -4.4 mEq/L (-2.5-2.5); BICARBONATE 22 mEq/L (22-26); MEASURED OXYGEN SATURATION 93 % (92-95); PCO2 48 mmHg (34-38); PO2 72 mmHg (65-75); TCO2 23 mEq/L (23-27)
--- NOTE | 2016-07-08 09:15 | PCMIDPN ---
Assessment/Plan: # Sepsis secondary to influenza PNA, possible superimposed CAP. Generally improved with improving O2 requirement and no fever, normalized white count. Chest x-ray yesterday showed improvement of infiltrate --last day of ertapenem, tamiflu; completed 7 day course --ID will follow peripherally # H/o ESBL: Contact isolation # Chr Sternal OM: Possible Debridement when stabilized, no urgency to start antibiotics for this indication. No surrounding cellulitis # ESRD : Dose antibiotics for dialysis. # Hx MR endocarditis with subsequent MVR September 2015: MAYE didn't show any vegetations and blood cultures 2/ are negative to date # Odette in sputum and urine culture consistent with colonization Microbiology / Blood cultures (2): Neg 07/02 sputum cultures: Odette / urine culture: 50 K Odette Subjective: no specific c/o today Objective: Vital Signs Temp Pulse Resp BP Pulse Ox 36.5 C 79 23 H 119/42 L 95 07/08/16 07:59 07/08/16 07:59 07/08/16 07:59 07/08/16 07:59 07/08/16 07:59 Laboratory Results 07/07/16 05:05 07/07/16 05:05 07/07/16 07/08/16 07/09/16 05:59 05:59 05:59 Intake Total 1225 1441 Balance 1225 1441 Tm 37 General Appearance: alert, Chronic ill appearance, no distress, severe debility EENT: pale conjunctiva Respiratory: coarse breath sounds, Shallow inspiratory effort, No accessory muscle use Chest: 3 chronic holes along sternotomy without surrounding erythema Neck: supple Extremities:LUE AVF Abdomen: normal bowel sounds, non-tender, soft Skin: pallor, No rash Neuro/Psych: alert, facial droop, baseline Left sandy paresis,Following commands appropriately ICD10 Worksheet Patient Problems: Problems Problem Status Diagnosed Palliative care encounter Acute Respiratory failure Acute Sepsis Acute
[2016-07-08 09:45] LABS: ALBUMIN 3.3 g/dL (3.5-5.0); ANION GAP 11 mEq/L (8-16); CALCIUM 9.3 mg/dL (8.5-10.4); CARBON DIOXIDE 24 mEq/l (22-31); CHLORIDE 106 mEq/L (97-110); CREATININE 3.1 mg/dL (0.7-1.3); GLOMERULAR FILTRATION RATE 21; GLUCOSE 224 mg/dL (70-100); POTASSIUM 4.1 mEq/L (3.5-5.2); SODIUM 141 mEq/L (134-144)
--- NOTE | 2016-07-08 10:13 | SOAPPROG ---
SOAP Progress Note Assessment/Plan: Assessment/Plan: ESRD: pt has regular HD, remains in ICU on slight pressor support. - Will do HD later today. - Will continue to monitor HD needs, for now plan to continue three times a week hemodialysis. Shock: pt remains on a small dose of Levophed, will continue to monitor. Subjective: No acute events overnight. Pt extubated. Pt remains on a low dose of levophed at 1.9. He denies any pain. Objective: Vital Signs Temp Pulse Resp BP Pulse Ox 36.5 C 79 23 H 119/42 L 95 07/08/16 07:59 07/08/16 07:59 07/08/16 07:59 07/08/16 07:59 07/08/16 07:59 Laboratory Results 07/07/16 05:05 07/08/16 09:15 07/07/16 07/08/16 07/09/16 05:59 05:59 05:59 Intake Total 1225 1441 Balance 1225 1441 PT 16.2 SEC (12.0-15.0) H 07/05/16 11:50 INR 1.30 (0.83-1.16) H 07/05/16 11:50 General: alert and oriented, no acute distress Eyes: EOMI, PERRL OP: Clear CV: RRR Resp: tachypneic, on NC Abd: Soft, NT Ext: very trace edema BLE Neuro: CN II-XII grossly intact, no asterixis Access: LUE AVF with thrill and bruit noted ICD10 Worksheet Patient Problems: Problems Problem Status Diagnosed Palliative care encounter Acute Respiratory failure Acute Sepsis Acute
--- NOTE | 2016-07-08 11:47 | PDINTPN ---
Scale Assembly Set Up Worker Progress Note Assessment/Plan: Assessment: Sepsis: Resolved. Continues to have hypotension requiring low dose NE. Sepsis resolved. He may run somewhat low blood pressures in general. Acute respiratory failure. Influenza A Pn, with poss superimposed bacterial pneumonia. Id following. On Ertapenam. Off Vanco/acyclovir. Doing well since extubation. Chest x-ray improved. ESRD: On hemodialysis 3 times per week. 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 Being seen by surgery and wound care. Once he is better may require surgical exploration. Hx CVA Hx peritonitis. AF: Now NSR, but with significant ectopy Nutrition: On tube feedings, increasing. DVT prophylaxis: Subcu hepari GI prophylaxis: Pantoprazole Advance directives. Limited resuscitation per the patient and his sister's wishes: To include intubation if needed, cardiac drugs, defibrillation. No compressions. Plan: Continue supportive care in the intensive care unit. Will continue to try and wean norepinephrine to off if blood pressure ok. Follow lab and x-ray. Continue bronchodilator therapy. Continue tube feedings. Pain control as needed. Encourage deep breathing, coughing. Possible sternal exploration and debridement next week?. Per Dr. Romo. 40 minutes of critical care time spent directly with the patient. Discussed nursing, respiratory, and the ICU multi disciplinary team. Subjective: Indicates he is doing okay. Denies pain, shortness of breath. Nonverbal for me. Nods head appropriately, thumbs-up. Objective: Vital Signs Temp Pulse Resp BP Pulse Ox 36.5 C 97 28 H 115/51 L 96 07/08/16 07:59 07/08/16 10:00 07/08/16 10:00 07/08/16 10:00 07/08/16 10:00 Laboratory Results 07/07/16 05:05 07/08/16 09:15 07/07/16 07/08/16 07/09/16 05:59 05:59 05:59 Intake Total 1225 1441 Balance 1225 1441 PT 16.2 SEC (12.0-15.0) H 07/05/16 11:50 INR 1.30 (0.83-1.16) H 07/05/16 11:50 Laboratory Tests 07/08/16 07/08/16 08:00 09:15 pCO2 48 H pO2 72 ABG pH 7.28 L Total O2 Concentration 2.0 Calcium 9.3 Phosphorus 3.2 Albumin 3.3 L Physical Exam - Physical Exam General Appearance: alert, mild distress (?) EENT: other (Nasal cannula at 2 L) Neck: normal inspection (No JVD) Respiratory: decreased breath sounds, rales (And congestion, few rhonchi, primarily at the right base.), wheezing (end expiratory, right greater than left at bases) Cardiac/Chest: regular rate, rhythm (With ectopy) Abdomen: normal bowel sounds, non-tender, soft, other (Tolerating tube feeding) Skin: warm/dry, pallor Extremities: No pedal edema Neuro/Psych: motor weakness (No change, status post stroke), No no motor/ sensory deficits, No cognition abnormalities ICD10 Worksheet Patient Problems: Problems Problem Status Diagnosed Palliative care encounter Acute Respiratory failure Acute Sepsis Acute
[2016-07-08] MEDS: predniSONE 10 MG TAB PO SCH (11:54)
[2016-07-08] MEDS: LANSOPRAZOLE SUSP 30MG/10ML UDSYR (Adult) TUBE SCH (11:54)
[2016-07-08] MEDS: INSULIN LISPRO 100 UNIT/ML SC SCH ×3 (11:55→18:36)
--- NOTE | 2016-07-08 13:04 | SOAPPROG ---
SOAP Progress Note Assessment/Plan: Assessment: 61yo male with multiple medical problems admitted with sepsis, seen recently in our office for sternal wound, s/p right groin dialysis catheter placement PE intubated, responds to simple commands chest 3 sternal wounds, no active drainage or surrounding erythema abdomen distended, very soft to palpation Plan: surgery for sternal wound when overall condition improves seen with Dr Romo 07/04/16 09:42 07/06/16 10:34 07/08/16 13:03 Objective: Vital Signs Temp Pulse Resp BP Pulse Ox 36.7 C 104 H 26 H 114/48 L 92 07/08/16 12:00 07/08/16 12:00 07/08/16 12:00 07/08/16 12:00 07/08/16 12:00 Laboratory Results 07/07/16 05:05 07/08/16 09:15 07/07/16 07/08/16 07/09/16 05:59 05:59 05:59 Intake Total 1225 1441 Balance 1225 1441 PT 16.2 SEC (12.0-15.0) H 07/05/16 11:50 INR 1.30 (0.83-1.16) H 07/05/16 11:50 ICD10 Worksheet Patient Problems: Problems Problem Status Diagnosed Palliative care encounter Acute Respiratory failure Acute Sepsis Acute
[2016-07-08] MEDS: ERTAPENEM 0.5 GM in NS 50 ML IV SCH (15:01)
--- NOTE | 2016-07-08 17:26 | HOSPPROG ---
Hospitalist Progress Note Assessment/Plan: * Influenza - Tamiflu * Septic shock - suspect secondary bacterial PNA -still with slight pressor need -IV Invanz - complete 7 days * Acute respiratory failure - extubated but tenuous * COPD with chronic respiratory failure 3L -prednisone, nebs * ESRD - dialysis * Sternal osteomyelitis - chronic -surgical debridement when more stable -no current need for abx * Non STEMI -suspect strain of sepsis -consider risk stratification when stable * CVA with chronic left sided deficits * h/o ESBL - isolation * MV endocarditis s/p MVR * Diabetes - increase insulin * Dysphagia - NPO/tube feeds * Metabolic encephalopathy - mental status poor Subjective: poor mental status, struggling to breathe Objective: Vital Signs Temp Pulse Resp BP Pulse Ox 36.4 C 75 24 H 111/56 L 100 07/08/16 16:00 07/08/16 16:00 07/08/16 16:00 07/08/16 16:00 07/08/16 16:00 Laboratory Results 07/07/16 05:05 07/08/16 09:15 07/07/16 07/08/16 07/09/16 05:59 05:59 05:59 Intake Total 1225 1441 Balance 1225 1441 PT 16.2 SEC (12.0-15.0) H 07/05/16 11:50 INR 1.30 (0.83-1.16) H 07/05/16 11:50 IV levophed d/w - Physical Exam Constitutional: appears nourished, not in pain, chronically ill appearing, uncomfortable Cardiovascular: no murmur, rub, or gallop, tachycardia, No edema Respiratory: expiratory wheeze, inspiratory crackles, respiratory distress, rhonchi Gastrointestinal: normoactive bowel sounds, soft, non-tender abdomen, no palpable masses Skin: no rashes or abrasions, no fluctuance, no induration Neurologic: No AAOx3 Psychiatric: agitated, poor insight, poor judgement, poor memory, No interacting appropriately ICD10 Worksheet Patient Problems: Problems Problem Status Diagnosed Palliative care encounter Acute Respiratory failure Acute Sepsis Acute
[2016-07-08] MEDS ORDERED: LORazepam 2 MG/ML INJ IVP PRN (17:27)
[2016-07-08] MEDS: OSELTAMIVIR 6 MG/ML UDSYR TUBE SCH (18:37)
[2016-07-08] MEDS ORDERED: INSULIN DETEMIR 8 UNIT SQ SCH (20:00)
[2016-07-08] MEDS ORDERED: INSULIN GLARGINE 100 UNITS/ML SYRINGE SC SCH (21:00)
[2016-07-08] MEDS: INSULIN GLARGINE 100 UNITS/ML SYRINGE SC SCH (21:10)
[2016-07-08] MEDS: FAMOTIDINE 20 MG TAB PO SCH (22:04)
[2016-07-09] MEDS: INSULIN LISPRO 100 UNIT/ML SC SCH ×4 (00:25→18:22)
[2016-07-09] MEDS: METOCLOPRAMIDE 10 MG/2 ML VIAL IVP SCH ×4 (00:25→17:20)
[2016-07-09] MEDS: HEPARIN 5,000 UNIT/0.5 ML SYR SC SCH ×3 (02:18→18:27)
[2016-07-09 04:44] LABS: ADD DIFF? YES; ADD MORPH? NO; ADD SCAN? NO; ATYPICAL LYMPHOCYTE FLAG 0 (0-99); FRAGMENT RBC FLAG 40 (0-99); HEMATOCRIT 28.6 % (40.0-51.0); HEMOGLOBIN 9.1 g/dL (13.7-17.5); LEFT SHIFT FLG 30 (0-99); LIPEMIA HEMOLYSIS FLAG 80 (0-99); MEAN CELL HEMOGLOBIN 26.7 pg (27.9-34.1); MEAN CELL HEMOGLOBIN CONCENTR. 31.8 g/dL (32.4-36.7); MEAN CELL VOLUME 83.9 fL (81.5-99.8); MEAN PLATELET VOLUME 11.2 fL (8.7-11.7); PLATELET CLUMPS FLAG 0 (0-99); PLATELET COUNT 217 10^3/uL (150-400); RED BLOOD CELL COUNT 3.41 10^6/uL (4.40-6.38); RED CELL DISTRIBUTION WIDTH 17.2 % (11.5-15.2)
[2016-07-09 05:02] LABS: ALBUMIN 3.1 g/dL (3.5-5.0); ANION GAP 9 mEq/L (8-16); CALCIUM 9.2 mg/dL (8.5-10.4); CARBON DIOXIDE 29 mEq/l (22-31); CHLORIDE 102 mEq/L (97-110); CREATININE 2.1 mg/dL (0.7-1.3); GLOMERULAR FILTRATION RATE 32; GLUCOSE 175 mg/dL (70-100); POTASSIUM 4.2 mEq/L (3.5-5.2); SODIUM 140 mEq/L (134-144)
[2016-07-09 05:29] LABS: ACANTHOCYTES 1+; ELLIPTOCYTES 1+; MICROCYTES 1+; PLATELET ESTIMATE ADEQUATE (ADEQ); SCHISTOCYTES 1+
[2016-07-09] MEDS ORDERED: IPRATROPIUM/ALBUTEROL 3 ML DEYVIAL ONE (09:25)
[2016-07-09] MEDS: IPRATROPIUM/ALBUTEROL 3 ML DEYVIAL IH SCH ×3 (09:37→20:12)
--- NOTE | 2016-07-09 09:55 | DX ---
Portable Chest, 9:45 AM History: Labored breathing, increased secretions, history of septic shock and sternal suture abscess Comparison: July 07 Findings: NG tube remains in place with tip in the stomach. Left jugular venous catheter present with tip at the junction of the innominate vein and the superior vena cava. New grayness in the right low er lung zone suggests a pleural effusion. Lower lung zone consolidation remains. There is a stable up per sternal median sternotomy wire. CABG clips and a valve replacement remain in place. The heart rem ains large. Impression: Suspect new right pleural effusion.
--- NOTE | 2016-07-09 11:55 | PDINTPN ---
Acid Recovery Operator Progress Note Assessment/Plan: Assessment: Sepsis: Resolved. Continues to have hypotension requiring low dose NE. Sepsis resolved. He may run somewhat low blood pressures in general. Acute respiratory failure. Influenza A Pn, with poss superimposed bacterial pneumonia. Id following. Ertapenam stoped yesterday. Off Vanco/acyclovir. increased secretions overnight requiring nasotracheal suction. Has increased rhonchi and a new infiltrate/effusion at the right base today. Question possible pneumonia, new aspiration event. Will bronch, obtaine deep cultures, and discussed restarting antibiotics with Infectious Disease. ESRD: On hemodialysis 3 times per week. 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 Being seen by surgery and wound care. Once he is better may require surgical exploration. Hx CVA Hx peritonitis. AF: Now NSR, but with significant ectopy Nutrition: On tube feedings, increasing. DVT prophylaxis: Subcu hepari GI prophylaxis: Pantoprazole Advance directives. Limited resuscitation per the patient and his sister's wishes: To include intubation if needed, cardiac drugs, defibrillation. No compressions. Plan: Continue supportive care in the intensive care unit. Bronch today. Will continue to try and wean norepinephrine to off if blood pressure ok. Follow lab and x-ray. Continue bronchodilator therapy. Continue tube feedings. Pain control as needed. Encourage deep breathing, coughing. Possible sternal exploration and debridement next week?. Per Dr. Romo. 40 minutes of critical care time spent directly with the patient Not including bronchoscopy. Discussed nursing, respiratory, patient's sister, and the ICU multi disciplinary team. Subjective: more congested today somewhat more short of breath. Denies pain Objective: Vital Signs Temp Pulse Resp BP Pulse Ox 37.5 C 104 H 20 106/60 97 07/09/16 08:00 07/09/16 08:00 07/09/16 08:00 07/09/16 08:00 07/09/16 08:00 Laboratory Results 07/09/16 04:35 07/09/16 04:35 07/08/16 07/09/16 07/10/16 05:59 05:59 05:59 Intake Total 1441 1496 Output Total 1999 Balance 1441 -504 PT 16.2 SEC (12.0-15.0) H 07/05/16 11:50 INR 1.30 (0.83-1.16) H 07/05/16 11:50 CXR: Increased infiltrate/ effusion/atelectasis at right base. Left retrocardiac density unchanged. Overall, interstitial infiltrates have significantly decreased /resolved Physical Exam - Physical Exam General Appearance: mild distress, other (Awake, alert) EENT: other ( NG tube in place), No ET tube ( nasal cannula 4 L) Neck: normal inspection (JVD) Respiratory: decreased breath sounds ( bilaterally), rales ( few at bases), rhonchi ( right greater than left), wheezing Cardiac/Chest: regular rate, rhythm ( paced, with significant ectopy) Abdomen: normal bowel sounds ( tolerating tube feeding), non-tender, soft Skin: warm/dry, pallor Extremities: pedal edema Neuro/Psych: No no motor/sensory deficits ( unchanged regarding previous stroke) , No cognition abnormalities ( no changes) ICD10 Worksheet Patient Problems: Problems Problem Status Diagnosed Palliative care encounter Acute Respiratory failure Acute Sepsis Acute
[2016-07-09] MEDS ORDERED: BENZOCAINE UNIT DOSE SPRAY HURRICAINE MM ONE (13:20)
[2016-07-09] MEDS ORDERED: LIDOCAINE 2% JELLY 5 ML TUBE TP ONE (13:20)
[2016-07-09] MEDS ORDERED: LIDOCAINE 1% 30 ML SDV MISC ONE (13:20)
[2016-07-09] MEDS ORDERED: MIDAZOLAM 2 MG/2 ML VIAL ONE (13:30)
[2016-07-09] MEDS ORDERED: LIDOCAINE 2% JELLY 5 ML TUBE ONE (13:31)
[2016-07-09] MEDS ORDERED: MIDAZOLAM 2 MG/2 ML VIAL IVP ONE (14:00)
[2016-07-09] MEDS: predniSONE 10 MG TAB PO SCH (14:18)
[2016-07-09] MEDS: ASPIRIN 81 MG CHEWABLE TAB PO SCH (14:19)
[2016-07-09] MEDS: ESCITALOPRAM OXALATE 10 MG TAB PO SCH (14:19)
[2016-07-09] MEDS: FLUTICASONE NASAL 120 SPRAYS/16 GM MDI EACHNARE SCH (14:20)
--- NOTE | 2016-07-09 15:02 | GPN ---
[f rep st] PROCEDURE NOTE DATE OF PROCEDURE: 07/09/2016 INDICATIONS: Increasing secretions in a patient unable to cough adequately with chronic respiratory failure and a history of recent intubation, status post stroke, etc. New infiltrates are present on x-ray. PROCEDURE NOTE: The procedure was performed in the patient's room in the intensive care unit. Negat isis pressure room was not indicated. N95 masks were worn. Informed consent was obtained from the kae crandall's sister. An appropriate time-out was performed. 2 mg of intravenous Versed was used for cons cious sedation. Approximately 15 cc of 1% lidocaine was used for topical anesthesia. The fiberoptic bronchoscope was passed via a bite block orally into the larynx. The vocal cords were identified and cannulated. The bronchoscope was then advanced into the trachea and in the lower tra cheobronchial tree bilaterally. Anatomy was normal bilaterally. All areas were observed to at least the segmental level. There were a large amount of secretions found, right side greater than left, c onsistent with recurrent bronchopneumonia. Secretions were removed with suction and lavage. A sampl e was sent for culture. At the end of the procedure. There were no significant secretions remaining on either side. The patient tolerated the procedure well. Vital signs and oxygen saturations remai brayan stable throughout the procedure. Following removal of the bronchoscope a new small bore NG tube was placed in the patient's right nost ril without difficulty. IMPRESSION: Increased secretions consistent with recurrent bronchopneumonia. /[id number]/MODL
--- NOTE | 2016-07-09 15:35 | HOSPPROG ---
Hospitalist Progress Note Assessment/Plan: * Influenza - Tamiflu * Septic shock - suspect secondary bacterial PNA -still on Levophed * Nosocomial pneumonia -IV Invanz - completed 7 days -bronch today - consistent with ongoing pneumonia -ID to resume abx * Increasing pleural effusion - consider thoracentesis * Acute hypercarbic respiratory failure - extubated but tenuous due to fatigue/ secretions * COPD with chronic respiratory failure 3L -prednisone, nebs * ESRD - dialysis * Sternal osteomyelitis - chronic -surgical debridement when more stable -no current need for abx * Non STEMI -suspect strain of sepsis -consider risk stratification when stable * CVA with chronic left sided deficits * h/o ESBL - isolation * MV endocarditis s/p MVR * Diabetes - increase insulin * Dysphagia - NPO/tube feeds * Metabolic encephalopathy - mental status poor Subjective: still working to breathe Objective: Vital Signs Temp Pulse Resp BP Pulse Ox 36.8 C 99 20 112/70 97 07/09/16 14:00 07/09/16 14:00 07/09/16 14:00 07/09/16 14:00 07/09/16 14:00 Laboratory Results 07/09/16 04:35 07/09/16 04:35 07/08/16 07/09/16 07/10/16 05:59 05:59 05:59 Intake Total 1441 1496 Output Total 1999 Balance 1441 -504 PT 16.2 SEC (12.0-15.0) H 07/05/16 11:50 INR 1.30 (0.83-1.16) H 07/05/16 11:50 CXR viewed, my personal interpretation is: increasing effusion case d/w Dr. Leung and Dr. Garg regarding restarting abx - Physical Exam Constitutional: not in pain, chronically ill appearing, unkempt, No no apparent distress Cardiovascular: regular rate and rhythym, no murmur, rub, or gallop Respiratory: expiratory wheeze, inspiratory crackles, respiratory distress ( using abdominal accessory muscles), rhonchi Gastrointestinal: normoactive bowel sounds, soft, non-tender abdomen, no palpable masses Skin: no rashes or abrasions, no fluctuance, no induration Psychiatric: interacting appropriately, flat affect (very fatigues appearing), poor insight, poor judgement, poor memory, other, No encephalopathic ICD10 Worksheet Patient Problems: Problems Problem Status Diagnosed Palliative care encounter Acute Respiratory failure Acute Sepsis Acute
--- NOTE | 2016-07-09 16:25 | DX ---
Portable Chest, 1551, 2 views History: Feeding tube placement Comparison: This morning at 9:45 AM Findings: The patient is rotated toward the left. The patient's NG tube has been replaced with a feed ing tube. The tip is in the distal stomach. Aeration at the right lung base is improved. Bilateral pn eumonia remains. A small bore catheter remains with tip overlying the mediastinum. Impression: Feeding tube tip in the distal stomach.
--- NOTE | 2016-07-09 17:21 | SOAPPROG ---
SOAP Progress Note Assessment/Plan: Assessment: 1. esrd: tolerated hd without issue yesterday, will tentatively plan next treatment for Monday. Volume status looks good, lytes stable. 2. resp failure: extubated but tenuous. Bronch'd today, remains on abx. 3. hypotension: on low-dose levo. Tolerated UF ok on hd yesterday. Plan: 07/09/16 17:18 07/09/16 17:22 Subjective: s/p hd yesterday with 2L uf. Remains on low-dose levo. Has been intermittantly responsive but currently is somnolent. Objective: Vital Signs Temp Pulse Resp BP Pulse Ox 36.8 C 98 22 H 116/54 L 98 07/09/16 14:00 07/09/16 16:00 07/09/16 16:00 07/09/16 16:00 07/09/16 16:00 Laboratory Results 07/09/16 04:35 07/09/16 04:35 07/08/16 07/09/16 07/10/16 05:59 05:59 05:59 Intake Total 1441 1496 Output Total 1999 Balance 1441 -504 PT 16.2 SEC (12.0-15.0) H 07/05/16 11:50 INR 1.30 (0.83-1.16) H 07/05/16 11:50 Physical Exam - Physical Exam General Appearance: other (chronically-ill appearing) Extremities: swelling (no LE/dependent edema; +patent LUE avf) ICD10 Worksheet Patient Problems: Problems Problem Status Diagnosed Palliative care encounter Acute Respiratory failure Acute Sepsis Acute
[2016-07-09] MEDS: PRESERVISION AREDS2 FORMULA EYE VIT 1 EACH PO SCH (18:27)
[2016-07-09] MEDS: FAMOTIDINE 20 MG TAB PO SCH (20:49)
[2016-07-09] MEDS: INSULIN GLARGINE 100 UNITS/ML SYRINGE SC SCH (20:49)
[2016-07-10] MEDS: METOCLOPRAMIDE 10 MG/2 ML VIAL IVP SCH ×2 (00:27→06:41)
[2016-07-10] MEDS: INSULIN LISPRO 100 UNIT/ML SC SCH ×4 (00:34→18:00)
[2016-07-10] MEDS: HEPARIN 5,000 UNIT/0.5 ML SYR SC SCH ×3 (02:10→17:58)
[2016-07-10] MEDS: IPRATROPIUM/ALBUTEROL 3 ML DEYVIAL IH SCH ×4 (04:49→20:25)
[2016-07-10 05:34] LABS: ADD DIFF? YES; ADD MORPH? NO; ADD SCAN? NO; ATYPICAL LYMPHOCYTE FLAG 0 (0-99); FRAGMENT RBC FLAG 40 (0-99); HEMOGLOBIN 9.4 g/dL (13.7-17.5); LEFT SHIFT FLG 30 (0-99); LIPEMIA HEMOLYSIS FLAG 80 (0-99); MEAN CELL HEMOGLOBIN 27.4 pg (27.9-34.1); MEAN CELL HEMOGLOBIN CONCENTR. 31.3 g/dL (32.4-36.7); MEAN CELL VOLUME 87.5 fL (81.5-99.8); MEAN PLATELET VOLUME 11.2 fL (8.7-11.7); PLATELET CLUMPS FLAG 10 (0-99); PLATELET COUNT 195 10^3/uL (150-400); RED BLOOD CELL COUNT 3.43 10^6/uL (4.40-6.38); RED CELL DISTRIBUTION WIDTH 17.3 % (11.5-15.2)
[2016-07-10 05:53] LABS: ALBUMIN 3.1 g/dL (3.5-5.0); ANION GAP 10 mEq/L (8-16); CALCIUM 9.4 mg/dL (8.5-10.4); CARBON DIOXIDE 26 mEq/l (22-31); CHLORIDE 102 mEq/L (97-110); CREATININE 3.3 mg/dL (0.7-1.3); GLOMERULAR FILTRATION RATE 19; GLUCOSE 171 mg/dL (70-100); POTASSIUM 4.3 mEq/L (3.5-5.2); SODIUM 138 mEq/L (134-144)
[2016-07-10 06:42] LABS: MACROCYTES 1+; MICROCYTES 1+
[2016-07-10 06:43] LABS: PLATELET ESTIMATE ADEQUATE (ADEQ); SCHISTOCYTES 1+
[2016-07-10] MEDS: ESCITALOPRAM OXALATE 10 MG TAB PO SCH (08:09)
[2016-07-10] MEDS: ASPIRIN 81 MG CHEWABLE TAB PO SCH (08:09)
[2016-07-10] MEDS: PRESERVISION AREDS2 FORMULA EYE VIT 1 EACH PO SCH ×2 (08:09→17:57)
[2016-07-10] MEDS: predniSONE 10 MG TAB PO SCH (08:10)
[2016-07-10] MEDS: FLUTICASONE NASAL 120 SPRAYS/16 GM MDI EACHNARE SCH (08:11)
--- NOTE | 2016-07-10 08:32 | PCMIDPN ---
Assessment/Plan: Assessment/Plan: 1. Aspiration Pneumonia;new - copious secretions since extubation. acute jump in wbc yesterday. s/p bronch yesterday. Bronch report noted and also spoke with Dr. Wood regarding findings. -New cultures sent from bronch. Also new blood cx in progress.. -will start Merem renally dosed for now and adjust based on cultures. -care coordinated with RN. 2. s/p Influenza and possible secondary bacterial pneumonia; - s/p course of antbiotics with jorge Rosenberganz. Completed therapy on 07/08/16 3. Hx CRE:- - continue contact isolation. Meds off atbx at present. s/p vanco 750mg q48- invanz 500mg daily tamiflu 30mg daily Subjective: Afebrile. Continues with copious secretions. Extubated last week, mid. Decreased gag reflex per RN. s/p bronch yesterday. To resume HD on Monday. Objective: Vital Signs Temp Pulse Resp BP Pulse Ox 36.6 C 80 18 98/55 L 98 07/10/16 08:00 07/10/16 08:00 07/10/16 08:00 07/10/16 08:00 07/10/16 08:00 Laboratory Results 07/10/16 05:15 07/10/16 05:15 07/09/16 07/10/16 07/11/16 05:59 05:59 05:59 Intake Total 1496 1211 Output Total 1999 0 Balance -504 1211 - Physical Exam General Appearance: alert Respiratory: coarse breath sounds Cardiac/Chest: regular rate, rhythm Extremities: No swelling Abdomen: normal bowel sounds, non-tender, soft, No distended Skin: No erythema ICD10 Worksheet Patient Problems: Problems Problem Status Diagnosed Palliative care encounter Acute Respiratory failure Acute Sepsis Acute
[2016-07-10] MEDS ORDERED: CHOLECALCIFEROL VIT D3 2,000 UNITS TAB/CAP PO SCH (09:00)
[2016-07-10] MEDS ORDERED: CYANO/VITAMIN B12 1000 MCG TAB PO SCH (09:00)
[2016-07-10] MEDS ORDERED: MEROPENEM 500 MG in NS 100 ML IV SCH (09:00)
[2016-07-10] MEDS ORDERED: VSL#3 1 EACH CAP PO SCH (09:00)
[2016-07-10] MEDS ORDERED: ASCORBIC ACID 500 MG TAB PO SCH (09:00)
--- NOTE | 2016-07-10 11:36 | DX ---
Portable AP chest. 07/10/2016 at 10:48 AM History: Follow-up respiratory failure Comparison study: July 09, 2016. Findings: Increasing right lower lobe atelectasis and silhouetting right hemidiaphragm from prior luis angel dy. Patchy left lung infiltrate is stable. Median sternotomy and aortic valve replacement. NG tube is present. A left-sided jugular catheter has been retracted from the postsurgical studies, overlying the upper left mediastinum on current exam s imilar to one day earlier. Impression: 1. Increasing right lower lobe atelectasis. 2. Patchy infiltrate left lung, stable. 3. Stable position left jugular catheter, which has been partially retracted from postsurgical exam.
--- NOTE | 2016-07-10 13:22 | PDINTPN ---
Spring Inspector Progress Note Assessment/Plan: Assessment: Sepsis: Resolved. Continues to have hypotension requiring low dose NE. Sepsis resolved. He may run somewhat low blood pressures in general. Acute respiratory failure. Influenza A Pn, with poss superimposed bacterial pneumonia. Id following. Ertapenam stoped Monday. Off Vanco/acyclovir previously. Increased secretions over the last 2 days requiring nasotracheal suction associated with increased infiltrate/atelectasis/effusion at the right base. Status post bronchoscopy yesterday with significant increased secretions , right greater than left consistent with recurrent aspiration pneumonia. Cultures pending. Restarted on antibiotics: Meropenem. ESRD: On hemodialysis 3 times per week. 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 Being seen by surgery and wound care. Once he is better may require surgical exploration. Hx CVA Hx peritonitis. AF: Now NSR, but with significant ectopy, AFib at times Nutrition: On tube feedings. DVT prophylaxis: Subcu hepari GI prophylaxis: Pantoprazole Advance directives. Limited resuscitation per the patient and his sister's wishes: To include intubation if needed, cardiac drugs, defibrillation. No compressions. The patient's sister would like to continue aggressive supportive care, short of cardiac compressions. She would likely want to proceed with repeat tracheostomy and PEG placement, LTAC, etc if this were needed for prolonged recurrent respiratory failure and FTT. Plan: Continue supportive care in the intensive care unit. Repeat therapeutic bronch today. Will continue to try and wean norepinephrine to off if blood pressure ok. Follow lab and x-ray. Continue bronchodilator therapy. Continue tube feedings. Pain control as needed. Encourage deep breathing, coughing as possible. Possible sternal exploration and debridement next week?. Per Dr. Romo. 40 minutes of critical care time spent directly with the patient Not including bronchoscopy. Discussed nursing, respiratory, patient's sister/POA, and the ICU multi disciplinary team. Subjective: Increased secretions persist. Otherwise unchanged. Indicates he is doing okay. Still not trying to talk. Objective: Vital Signs Temp Pulse Resp BP Pulse Ox 36.6 C 102 H 18 103/41 L 100 07/10/16 08:00 07/10/16 13:00 07/10/16 13:00 07/10/16 13:00 07/10/16 13:00 Microbiology 07/09/16 14:00 - Final Sputum, Induced/Suctioned Laboratory Results 07/10/16 05:15 07/10/16 05:15 07/09/16 07/10/16 07/11/16 05:59 05:59 05:59 Intake Total 1496 1211 Output Total 2000 0 Balance -504 1211 PT 16.2 SEC (12.0-15.0) H 07/05/16 11:50 INR 1.30 (0.83-1.16) H 07/05/16 11:50 CXR: Increasing right lower lobe infiltrate/atelectasis/effusion Bronch culture from yesterday: Not final, pending Physical Exam - Physical Exam General Appearance: mild distress, other (Arouses, responds) EENT: anisocoria, other (Nasal cannula at 4 L: 100% saturations. Will desaturate at times.), No PERRL/EOMI Neck: normal inspection Respiratory: decreased breath sounds (Bilaterally, right greater than left), rhonchi (And secretions), wheezing, No lungs clear Cardiac/Chest: regular rate, rhythm (Paced, ectopy) Abdomen: normal bowel sounds, non-tender, soft, other (Nasogastric tube in place. Tolerating tube feeding) Skin: warm/dry, pallor Extremities: pedal edema Neuro/Psych: No no motor/sensory deficits, No cognition abnormalities ICD10 Worksheet Patient Problems: Problems Problem Status Diagnosed Palliative care encounter Acute Respiratory failure Acute Sepsis Acute
[2016-07-10] MEDS ORDERED: LIDOCAINE 2% JELLY 5 ML TUBE TP ONE (14:12)
[2016-07-10] MEDS ORDERED: LIDOCAINE 1% 30 ML SDV MISC ONE (14:12)
[2016-07-10] MEDS ORDERED: BENZOCAINE UNIT DOSE SPRAY HURRICAINE MM ONE (14:12)
[2016-07-10] MEDS ORDERED: ALTEPLASE 2 MG VIAL IVP PRN (14:26)
[2016-07-10] MEDS ORDERED: MIDAZOLAM 2 MG/2 ML VIAL ONE (14:28)
--- NOTE | 2016-07-10 14:48 | HOSPPROG ---
Hospitalist Progress Note Assessment/Plan: * Influenza - s/p Tamiflu * Septic shock - suspect secondary bacterial PNA -still on Levophed - wean * Nosocomial pneumonia -IV Invanz - completed 7 days -s/p bronch - likely bronch again today -now on IV meropenem * Increasing pleural effusion - consider thoracentesis * Acute hypercarbic respiratory failure - extubated but tenuous due to fatigue/ secretions -may need another trach * COPD with chronic respiratory failure 3L -prednisone, nebs * ESRD - dialysis * Sternal osteomyelitis - chronic -surgical debridement when more stable -no current need for abx * Non STEMI -suspect strain of sepsis -consider risk stratification when stable * CVA with chronic left sided deficits * h/o ESBL - isolation * MV endocarditis s/p MVR * Diabetes - increase insulin * Dysphagia - NPO/tube feeds * Metabolic encephalopathy - mental status poor * Developmental delay due to childhood anoxic injury Subjective: Still very tenuous Objective: Vital Signs Temp Pulse Resp BP Pulse Ox 37 C 86 18 115/53 L 99 07/10/16 14:00 07/10/16 14:00 07/10/16 14:00 07/10/16 14:00 07/10/16 14:00 Microbiology 07/09/16 14:00 - Final Sputum, Induced/Suctioned Laboratory Results 07/10/16 05:15 07/10/16 05:15 07/09/16 07/10/16 07/11/16 05:59 05:59 05:59 Intake Total 1496 1211 288 Output Total 2000 0 Balance -504 1211 288 PT 16.2 SEC (12.0-15.0) H 07/05/16 11:50 INR 1.30 (0.83-1.16) H 07/05/16 11:50 d/w Dr Leung ICU rounds - likely bronch again today. Heading for trach/PEG - he will discuss with sister CXR: left lung infiltrate - Physical Exam Constitutional: no apparent distress, appears nourished, not in pain Cardiovascular: regular rate and rhythym, no murmur, rub, or gallop Respiratory: reduced air movement, expiratory wheeze, respiratory distress, rhonchi Gastrointestinal: normoactive bowel sounds, soft, non-tender abdomen, no palpable masses Skin: no rashes or abrasions, no fluctuance, no induration Neurologic: weakness, No AAOx3 Psychiatric: encephalopathic, poor insight, poor judgement, poor memory ICD10 Worksheet Patient Problems: Problems Problem Status Diagnosed Palliative care encounter Acute Respiratory failure Acute Sepsis Acute
[2016-07-10] MEDS ORDERED: MIDAZOLAM 2 MG/2 ML VIAL IVP ONE (15:00)
--- NOTE | 2016-07-10 15:27 | SOAPPROG ---
SOAP Progress Note Assessment/Plan: Assessment: 1. esrd: tolerated hd Monday without issue despite pressors, will tentatively plan next treatment for tomorrow. Volume status looks good, will try to keep at current wt. 2. resp failure: extubated but tenuous, back on abx. 3. hypotension: on low-dose levo. Tolerated UF on hd Monday. Plan: 07/09/16 17:18 07/09/16 17:22 07/10/16 15:24 Subjective: No sig change. MS cont to wax/wane. Remains on low-dose levo but stable. Objective: Vital Signs Temp Pulse Resp BP Pulse Ox 37 C 95 21 H 95/55 L 97 07/10/16 14:00 07/10/16 15:00 07/10/16 15:00 07/10/16 15:00 07/10/16 15:00 Microbiology 07/09/16 14:00 - Final Sputum, Induced/Suctioned Laboratory Results 07/10/16 05:15 07/10/16 05:15 07/09/16 07/10/16 07/11/16 05:59 05:59 05:59 Intake Total 1496 1211 288 Output Total 2000 0 Balance -504 1211 288 PT 16.2 SEC (12.0-15.0) H 07/05/16 11:50 INR 1.30 (0.83-1.16) H 07/05/16 11:50 Physical Exam - Physical Exam General Appearance: obtunded Abdomen: soft Extremities: swelling (none), other (+patent LUE avf) ICD10 Worksheet Patient Problems: Problems Problem Status Diagnosed Palliative care encounter Acute Respiratory failure Acute Sepsis Acute
[2016-07-10] MEDS: INSULIN GLARGINE 100 UNITS/ML SYRINGE SC SCH (20:11)
[2016-07-10] MEDS: FAMOTIDINE 20 MG TAB PO SCH (20:11)
[2016-07-11] MEDS: INSULIN LISPRO 100 UNIT/ML SC SCH ×2 (00:29→05:59)
[2016-07-11] MEDS: HEPARIN 5,000 UNIT/0.5 ML SYR SC SCH (02:17)
[2016-07-11 04:38] VITALS: TEMP 98.6
[2016-07-11 05:05] LABS: BASE EXCESS -3.4 mEq/L (-2.5-2.5); BICARBONATE 26 mEq/L (22-26); MEASURED OXYGEN SATURATION 96 % (92-95); PO2 101 mmHg (65-75); TCO2 28 mEq/L (23-27)
[2016-07-11 05:10] LABS: PCO2 74 mmHg (34-38)
[2016-07-11 05:11] LABS: O2 CONCENTRATIION 99 % (0-100); P/F RATIO 102 RATIO
[2016-07-11] MEDS: IPRATROPIUM/ALBUTEROL 3 ML DEYVIAL IH SCH (05:15)
[2016-07-11 05:18] LABS: ADD DIFF? YES; ADD MORPH? NO; ADD SCAN? YES; ATYPICAL LYMPHOCYTE FLAG 0 (0-99); FRAGMENT RBC FLAG 40 (0-99); HEMATOCRIT 29.3 % (40.0-51.0); LEFT SHIFT FLG 20 (0-99); LIPEMIA HEMOLYSIS FLAG 80 (0-99); MEAN CELL HEMOGLOBIN CONCENTR. 30.7 g/dL (32.4-36.7); MEAN PLATELET VOLUME 11.3 fL (8.7-11.7); PLATELET CLUMPS FLAG 10 (0-99); PLATELET COUNT 215 10^3/uL (150-400); RED BLOOD CELL COUNT 3.33 10^6/uL (4.40-6.38); RED CELL DISTRIBUTION WIDTH 17.4 % (11.5-15.2)
[2016-07-11 05:20] LABS: ALBUMIN 3.3 g/dL (3.5-5.0); ANION GAP 14 mEq/L (8-16); CALCIUM 9.3 mg/dL (8.5-10.4); CARBON DIOXIDE 27 mEq/l (22-31); CHLORIDE 101 mEq/L (97-110); CREATININE 4.2 mg/dL (0.7-1.3); GLOMERULAR FILTRATION RATE 15; GLUCOSE 205 mg/dL (70-100); POTASSIUM 4.6 mEq/L (3.5-5.2); SODIUM 142 mEq/L (134-144)
[2016-07-11 06:23] LABS: SCAN POSITIVE
[2016-07-11 06:46] LABS: PLATELET ESTIMATE ADEQUATE (ADEQ)
[2016-07-11 06:47] LABS: MACROCYTES 1+; MICROCYTES 1+; POLYCHROMASIA 1+
[2016-07-11 06:48] LABS: SCHISTOCYTES 1+
--- NOTE | 2016-07-11 07:57 | SOAPPROG ---
SOAP Progress Note Assessment/Plan: Assessment: I spoke with RN. Family is expected to fully transition to comfort care this am. I will cancel dialysis scheduled for today. We will follow for any changes in plan. Family at bedside, their needs are being met and they are being supported and counseled. Plan: 07/11/16 07:55 Objective: Vital Signs Temp Pulse Resp BP Pulse Ox 37 C 96 20 103/35 L 99 07/11/16 04:00 07/11/16 06:00 07/11/16 06:00 07/11/16 06:00 07/11/16 06:00 Microbiology 07/09/16 14:00 - Final Sputum, Induced/Suctioned Laboratory Results 07/11/16 04:45 07/11/16 04:45 07/10/16 07/11/16 07/12/16 05:59 05:59 05:59 Intake Total 1211 1287 Output Total 0 Balance 1211 1287 PT 16.2 SEC (12.0-15.0) H 07/05/16 11:50 INR 1.30 (0.83-1.16) H 07/05/16 11:50 ICD10 Worksheet Patient Problems: Problems Problem Status Diagnosed Palliative care encounter Acute Respiratory failure Acute Sepsis Acute
[2016-07-11] MEDS ORDERED: LORazepam 2 MG/ML INJ IVP PRN (08:11)
[2016-07-11] MEDS ORDERED: GLYCOPYRROLATE 0.2 MG/1 ML VIAL IVP PRN (08:12)
[2016-07-11] MEDS ORDERED: NS 1,000 ML IV SCH (08:30)
--- NOTE | 2016-07-11 08:48 | PDINTPN ---
[facility]ilities Specialist Progress Note Assessment/Plan: Assessment/Plan: Sepsis: Resolved. Continues to have hypotension requiring low dose NE. Sepsis resolved. He may run somewhat low blood pressures in general. Acute respiratory failure-markedly hypercarbic Influenza A Pn, with poss superimposed bacterial pneumonia. Id following. Ertapenam stoped Monday. Off Vanco/acyclovir previously. Increased secretions over the last 2 days requiring nasotracheal suction associated with increased infiltrate/atelectasis/effusion at the right base. Status post bronchoscopy yesterday with significant increased secretions, right greater than left consistent with recurrent aspiration pneumonia. Cultures pending. Restarted on antibiotics: Meropenem. ESRD: On hemodialysis 3 times per week. 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 Being seen by surgery and wound care. Once he is better may require surgical exploration. Hx CVA Hx peritonitis. AF: Now NSR, but with significant ectopy, AFib at times Nutrition: On tube feedings. DVT prophylaxis: Subcu hepari GI prophylaxis: Pantoprazole Long discussion with patient's family. It is their wish that all support be withdrawn and patient be made comfortable. We will abide by their wishes Subjective: Obtunded Objective: Vital Signs Temp Pulse Resp BP Pulse Ox 37 C 96 20 103/35 L 99 07/11/16 04:00 07/11/16 06:00 07/11/16 06:00 07/11/16 06:00 07/11/16 06:00 Microbiology 07/09/16 14:00 - Final Sputum, Induced/Suctioned Laboratory Results 07/11/16 04:45 07/11/16 04:45 07/10/16 07/11/16 07/12/16 05:59 05:59 05:59 Intake Total 1211 1287 Output Total 0 Balance 1211 1287 PT 16.2 SEC (12.0-15.0) H 07/05/16 11:50 INR 1.30 (0.83-1.16) H 07/05/16 11:50 Physical Exam - Physical Exam General Appearance: No alert EENT: PERRL/EOMI, normal ENT inspection Neck: non-tender, full range of motion Respiratory: decreased breath sounds, crackles (few), prolonged expiration Cardiac/Chest: normal peripheral pulses, regular rate, rhythm, systolic murmur Abdomen: normal bowel sounds, non-tender, soft Male Genitalia: deferred Rectal: deferred Skin: normal color, warm/dry ICD10 Worksheet Patient Problems: Problems Problem Status Diagnosed Palliative care encounter Acute Respiratory failure Acute Sepsis Acute
[2016-07-11 08:53] VITALS: BP 106/56; PULSE 77; RESP 16; O2SAT 56
[2016-07-11] MEDS: PRESERVISION AREDS2 FORMULA EYE VIT 1 EACH PO SCH (09:06)
[2016-07-11] MEDS: LORazepam 2 MG/ML INJ IVP SCH ×2 (09:54→12:00)
--- NOTE | 2016-07-11 10:22 | DX ---
Chest, One View Portable at 0618 hours on July 11, 2016 History: Multiple tubes and lines. Recent cardiac surgery. Comparison: 07/10/2016. Findings: Cardiac silhouette is mildly enlarged. Feeding tube passes stomach. Valve replacement, med kourtney sternotomy wires, and mediastinal clips again noted. Improving pulmonary edema pattern. Residual left lower lobe atelectasis. Left central line is in the left side of the neck near the clavicle ava on. Recommend repositioning. Impression: 1. Multiple tubes and lines without pneumothorax. 2. Improving pulmonary edema pattern. 3. Residual left lower lobe atelectasis. 4. Left neck central line with the tip at the left clavicle level. Recommend repositioning. ICU charge nurse notified at 0945 hours, who will notify Dr. Austin. Dr. Austin is aware findings.
--- NOTE | 2016-07-11 12:54 | SOAPPROG ---
SOAP Progress Note Assessment/Plan: Assessment/plan: 61 Y M c multiple issues including developmental delay, ESRD, MVR, afib, prior CVA, admitted c septic shock. +influenza. +sternal wounds. Groin HD cath placed per Dr. Romo. Per RN, family choosing comfort care. Will sign off for now. Please reconsult if patient does well and we can pursue surgical sternal debridement--happy to help if needed. Thanks. 07/11/16 12:52 Objective: Vital Signs Temp Pulse Resp BP Pulse Ox 37 C 77 16 106/56 L 56 L 07/11/16 04:00 07/11/16 08:00 07/11/16 07:00 07/11/16 07:00 07/11/16 08:00 Microbiology 07/09/16 14:00 - Final Sputum, Induced/Suctioned Laboratory Results 07/11/16 04:45 07/11/16 04:45 07/10/16 07/11/16 07/12/16 05:59 05:59 05:59 Intake Total 1211 1287 Output Total 0 Balance 1211 1287 PT 16.2 SEC (12.0-15.0) H 07/05/16 11:50 INR 1.30 (0.83-1.16) H 07/05/16 11:50 ICD10 Worksheet Patient Problems: Problems Problem Status Diagnosed Palliative care encounter Acute Respiratory failure Acute Sepsis Acute
--- NOTE | 2016-07-11 13:06 | HOSPPROG ---
Hospitalist Progress Note Assessment/Plan: * Influenza - s/p Tamiflu * Septic shock - secondary bacterial PNA - requiring pressors * Nosocomial pneumonia * Increasing pleural effusion * Acute hypercarbic respiratory failure -recurrent intubation declined by family -comfort care only * COPD with chronic respiratory failure 3L -prednisone, nebs * ESRD - dialysis * Sternal osteomyelitis - chronic -surgical debridement needed * Non STEMI -suspect strain of sepsis * CVA with chronic left sided deficits * h/o ESBL - isolation * MV endocarditis s/p MVR * Diabetes - insulin * Dysphagia - NPO/tube feeds * Metabolic encephalopathy - mental status poor * Developmental delay due to childhood anoxic injury IV morphine and IV ativan for comfort per Dr. Austin Subjective: Patient took a turn for the worse this am. Looked like re- intubation was going to be necessary. Family has chosen instead to transition to comfort measures only. Objective: Vital Signs Temp Pulse Resp BP Pulse Ox 37 C 77 16 106/56 L 56 L 07/11/16 04:00 07/11/16 08:00 07/11/16 07:00 07/11/16 07:00 07/11/16 08:00 Microbiology 07/09/16 14:00 - Final Sputum, Induced/Suctioned Laboratory Results 07/11/16 04:45 07/11/16 04:45 07/10/16 07/11/16 07/12/16 05:59 05:59 05:59 Intake Total 1211 1287 Output Total 0 Balance 1211 1287 PT 16.2 SEC (12.0-15.0) H 07/05/16 11:50 INR 1.30 (0.83-1.16) H 07/05/16 11:50 d/w Dr. Austin regarding events - Physical Exam Constitutional: not in pain, chronically ill appearing Respiratory: respiratory distress (mild) Psychiatric: encephalopathic, other (unresponsive) ICD10 Worksheet Patient Problems: Problems Problem Status Diagnosed Palliative care encounter Acute Respiratory failure Acute Sepsis Acute
--- NOTE | 2016-07-11 23:16 | GDS ---
[f rep st] DISCHARGE SUMMARY DATE OF : July 11, 2016. DIAGNOSES: 1. Acute respiratory failure due to influenza and secondary bacterial pneumonia. 2. Septic shock. 3. Methicillin-resistant Staphylococcus aureus pneumonia. 4. Chronic obstructive pulmonary disease with chronic respiratory failure. 5. End-stage renal disease, on dialysis. 6. Chronic sternal osteomyelitis. 7. Fzg-LO-pcqiwulcm myocardial infarction. 8. Stroke with chronic left-sided deficits. 9. History of extended-spectrum beta lactamase. 10. Mitral valve endocarditis, status post mitral valve replacement. 11. Diabetes. 12. Dysphagia. 13. Metabolic encephalopathy. 14. Developmental delay due to childhood anoxic injury. HISTORY: The patient is a 61-year-old male, who has been ill recently, suffered mitral valve endocar ditis requiring valve replacement, complicated by a stroke and need for dialysis. He had been recent ly at [facility]. He presented to the hospital with influenza with secondary bacterial pneumonia with septic shock. He had a prolonged hospital course. He was intubated. He completed his initial course of antibiotics and was extubated. However, he never was able to manage his secretions very we ll and decompensated again, looking like he was going to need to be re-intubated. He recently had a trach and a PEG tube with his last serious illness and discussions were had with family they felt he would not want to be reintubated. He was heading for another trach and PEG. At that time, decision was made to convert to comfort measures only. He was treated symptomatically and was comfortable at the time of his . /[id number]/MODL
--- NOTE | 2016-07-14 13:07 | PQFORM ---
PHYSICIAN QUERY FORM Needs Your Response This query form is being sent to you to assure this patient record is coded properly. Please respond to the question below: CATTLE DRIVER QUESTION: Dear Dr. Shipman, It is documented in the H&P that the patient was diagnosed with 'a history of Diastolic congestive heart failure'. Dr. Romo documented in the 07/02 consult report the patient has a history of congestive heart failure. Also, the diagnosis of 'acute systolic heart failure' is documented in the Hospitalist progress notes dated 07/02-07/07. After study, should the diagnosis of 'acute systolic heart failure' be included in the discharge summary? ___x___ Yes No Other more appropriate diagnosis Unable to determine Thank you [facility] HIM/Coding Dept [phone] INSTRUCTIONS FOR RESPONSE: Answer question by clicking on the "Edit Document" button. Move cursor to area below the stars. When complete, hit "Save." Click on the "Sign" button, then click "Sign" again. Type in your PIN and hit "Enter." MTDD
== END 2016-07-11 13:35 | disposition expired | DRG 853 ==
LOC: EDBD 01:06 → F2N 03:37
PROVIDERS: ADMIT Internal Medicine; ATTEND Internal Medicine
PROC: 5A1955Z Respiratory Ventilation, Greater than 96 Consecutive Hours (ICD-10-PCS; 2016-07-02)
PROC: 0BH18EZ Insertion of Endotracheal Airway into Trachea, Via Natural or Artificial Opening Endoscopic (ICD-10-PCS; 2016-07-02)
PROC: 5A1D00Z (ICD-10-PCS; 2016-07-06)
PROC: 02HV33Z Insertion of Infusion Device into Superior Vena Cava, Percutaneous Approach (ICD-10-PCS; 2016-07-06)
PROC: 0B978ZZ Drainage of Left Main Bronchus, Via Natural or Artificial Opening Endoscopic (ICD-10-PCS; principal; 2016-07-09)
PROC: 0B938ZZ Drainage of Right Main Bronchus, Via Natural or Artificial Opening Endoscopic (ICD-10-PCS; principal; 2016-07-09)
DX: A41.01 Sepsis due to Methicillin susceptible Staphylococcus aureus (principal); J15.212 Pneumonia due to Methicillin resistant Staphylococcus aureus; I50.21 Acute systolic (congestive) heart failure; J96.21 Acute and chronic respiratory failure with hypoxia; J11.08 Influenza due to unidentified influenza virus with specified pneumonia; N18.6 End stage renal disease; I21.4 Non-ST elevation (NSTEMI) myocardial infarction; G93.41 Metabolic encephalopathy; R65.21 Severe sepsis with septic shock; M86.68 Other chronic osteomyelitis, other site; I12.0 Hypertensive chronic kidney disease with stage 5 chronic kidney disease or end stage renal disease; I69.354 Hemiplegia and hemiparesis following cerebral infarction affecting left non-dominant side; J44.9 Chronic obstructive pulmonary disease, unspecified; R62.50 Unspecified lack of expected normal physiological development in childhood; R13.10 Dysphagia, unspecified; N40.0 Benign prostatic hyperplasia without lower urinary tract symptoms; E78.5 Hyperlipidemia, unspecified; E11.21 Type 2 diabetes mellitus with diabetic nephropathy; I44.1 Atrioventricular block, second degree; D63.1 Anemia in chronic kidney disease; F32.9 Major depressive disorder, single episode, unspecified; Z87.820 Personal history of traumatic brain injury; Z95.1 Presence of aortocoronary bypass graft; Z88.0 Allergy status to penicillin; Z66 Do not resuscitate; Z51.5 Encounter for palliative care; Z95.4 Presence of other heart-valve replacement
CPT/HCPCS: 86704-90; 86705-90; 92526-GN; 92610-GN; 96365; J0692; J1335; J1644; J1650; J1815; J2185; J2250; J2543; J2704; J2765; J3010; J3370